=== PATIENT | male | born 1955 | race Caucasian/White ===

== ENCOUNTER 2018-07-20 00:28 | Inpatient (IN) | payer OTHER ==
[~2018-07-20] VITALS: Ht 170.2 cm; Wt 104.3 kg
[~2018-07-20 00:28] MED LIST: ACIDOPHILUS1 EAC4 PO; ADVAIR 250-501 EACH; ALBUTEROL SULF8.5 GM; AMIODARONE HCL200 MG PO; AMLODIPINE BESY10 MG PO; ASA81 MG; AUGMENTIN 875-1 EACH PO; BACID PO; BUPROPION XL150 MG PO; CARAFATE1 GM PO; CHERATUSSIN AC118 ML; DIGOXIN125 MCG PO; FINASTERIDE5 MG PO; FLAGYL500 MG PO; FLEXERIL10 MG PO; GEMFIBROZIL600 MG PO; HEMOCYTE PLUS1 EACH PO; HYDROCHLOROTHIA25 MG PO; HYDROCODON-ACE1 EAC8 PO; HYDROCODON-ACE1 EAC9 PO; LANTUS SQ; LANTUS100 UNITS/ SQ; LOSARTAN POTAS100 MG PO; LYRICA75 MG PO; METOPROLOL SUC100 MG PO; METOPROLOL SUCC25 MG PO; NIFEDIPINE ER90 M1 PO; NORCO 10-325 T1 EACH PO; NOVOLOG; NOVOLOG MI100 UNIT/1 SQ; OMEPRAZOLE40 MG PO; PRAVASTATIN SOD20 MG PO; PROTONIX40 MG/ML PO; ULTRAM50 MG PO; WELLBUTRIN SR150 MG PO; Z.0.AMLODIPINE BESY1; Z.0.METOPROLOL SUC10 PO; Z.0.SERTRALINE HCL50 PO; Z.1.DIOVAN HCT 3201; ZOLOFT50 MG PO
--- OUTSIDE RECORDS SUMMARY | 2018-07-20 00:32 | XMS REPORT | Clinical Summary ---
Author Author CLARA [facility] CenterRakuten MediaFor[facility] [place] Address Unknown Phone Unavailable Care Team Providers Care Tortilla Maker Name Role Phone Lynda Xiong MD PCP Emil Marks 30 Unavailable Allergies Comments Active Allergy Reactions Severity Noted Date Adhesive Itching High 07/25/2016 Adhesive Itching High 07/25/2016 Medications End Date Status Medication Sig Dispensed Refills Start Date Active HYDROcodone-acetaminophen Take 1 tablet 0 (NORCO 10-325) 10-325 mg by mouth 2 5 per tablet (two) times daily as needed. Active insulin aspart (NOVOLOG Inject 25 0 FLEXPEN) 100 unit/mL InPn Units 5 subcutaneousl y 3 (three) times daily before meals Dose confirmed and verified with the patient.. Active insulin glargine (LANTUS Inject 50 0 SOLOSTAR) 100 unit/mL (3 Units 5 mL) InPn subcutaneousl y nightly Dose confirmed and verified with the patient.. Active furosemide (LASIX) 80 MG Take 80 mg by 0 tablet mouth 2 (two) times daily . Active metolazone (ZAROXOLYN) Take 2.5 mg 0 2.5 MG tablet by mouth daily. Active lisinopril Take 5 mg by 0 (PRINIVIL,ZESTRIL) 5 MG mouth 2 (two) tablet times daily . Active verapamil (VERELAN PM) Take 360 mg 0 360 MG 24 hr capsule by mouth nightly. Active venlafaxine (EFFEXOR) 75 Take 75 mg by 0 MG tablet mouth daily. Active sevelamer (RENVELA) 800 Take 3,200 mg 0 mg tabletIndications: by mouth 3 Pre-transplant evaluation (three) times for chronic kidney daily with disease meals . Active metoprolol (TOPROL-XL) Take 100 mg 0 100 MG 24 hr by mouth 2 tabletIndications: (two) times Pre-transplant evaluation daily . for chronic kidney disease 12/04/2018 Active insulin lispro (HUMALOG) Inject 0-12 10 mL 0 100 unit/mL injection Units 8 subcutaneousl y as needed (High blood sugar). 12/04/2018 Active insulin lispro (HUMALOG) Inject 0-4 10 mL 0 100 unit/mL injection Units 8 subcutaneousl y every night as needed (High blood sugar). Active omeprazole 20 mg TbEC Take 30 30 each 3 tablets by 8 mouth daily. 07/26/2017 furosemide (LASIX) 80 MG Take 1 tablet 180 tablet 3 tablet (80 mg total) 6 by mouth 2 (two) times daily. 12/04/2017 Discontinued aspirin 81 MG EC tablet Take 81 mg by 0 mouth daily. Active Problems Problem Noted Date Cardiomyopathy, unspecified type 12/02/2017 Alcoholic cirrhosis of liver without ascites 12/02/2017 Essential hypertension 12/02/2017 MARY (obstructive sleep apnea) 12/02/2017 Hyperlipidemia 12/02/2017 History of GI bleed 12/02/2017 Overview: multiple. 03/2015. 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 03/10/2016 dialysis, with long-term current use of insulin Vertigo 03/09/2016 Dizziness 03/09/2016 Acute chest pain 05/08/2015 GI bleed 04/23/2015 Encounters Care Team Description Date Type Specialty Audra Moy MD Canceled (Provider) 12/23/2017 Office Visit Cardiology Scarlet Martinez MD 12/02/2017 Anesthesia Gastroenterology Event Adrienne Fuentes MD UPPER ENDOSCOPY 12/02/2017 Surgery Gastroenterology Tamar Chandler MD Vincent, MD Bri Babb Tuyen V., MD Simms, King Reynaga MD Upper GI bleed (Primary Dx); Liver disease; ESRD (end stage renal disease) (HCC); Weakness; Anemia, unspecified type 12/01/2017 [facility] General Internal Medicine - Encounter 12/04/2017 Melissa Bonilla RN Kidney Transplant Pre-evaluation 08/05/2017 Telephone Transplant after 07/19/2017 Family History Medical History Relation Name Comments Leukemia Brother Arthritis Father COPD Father Lung cancer Father Diabetes Mother Heart disease Mother Stroke Mother Relation Name Status Comments Brother Father Mother Social History Date Tobacco Use Types Packs/Day Years Used Quit: 08/11/2012 Current Every Day Smoker 0.5 50 Smokeless Tobacco: Former Quit: 04/23/1976 User Tobacco Cessation: Ready to Quit: Yes; Counseling Given: Yes Alcohol Use Drinks/Week oz/Week Comments No 0 Cans of 0.0 h/o abuse, quit beer Sex Assigned at Date Recorded Not on file Industry Job Start Date Occupation Not on file Not on file Not on file Travel End Travel History Travel Start No recent travel history available. Last Filed Vital Signs Time Taken Vital Sign Reading 12/04/2017 7:45 AM CDT Blood Pressure 143/75 12/04/2017 7:45 AM CDT Pulse 91 12/04/2017 7:45 AM CDT Temperature 37.4 C (99.4 F) 12/04/2017 7:45 AM CDT Respiratory Rate 18 12/04/2017 7:45 AM CDT Oxygen Saturation 98% - Inhaled Oxygen - Concentration 12/04/2017 6:00 AM CDT Weight 109.8 kg (242 lb 1.6 oz) 12/01/2017 10:01 PM CDT Height 180.3 cm (5' 11") 12/04/2017 6:00 AM CDT Body Mass Index 33.77 Plan of Treatment Health Maintenance Due Date Last Done Comments INFLUENZA VACCINE 05/23/2018 Procedures Comments Procedure Name Priority Date/Time Associated Diagnosis RHYTHM STRIP - SCAN 06/09/2018 6:20 AM CDT RHYTHM STRIP - SCAN 12/07/2017 9:00 AM CDT POCT-GLUCOSE METER Routine 12/04/2017 8:10 AM CDT (MANUAL DIFFERENTIAL) Routine 12/04/2017 5:52 AM CDT CBC W/PLT COUNT & AUTO Routine 12/04/2017 DIFFERENTIAL 5:52 AM CDT BASIC METABOLIC PANEL (7) Routine 12/04/2017 5:52 AM CDT CBC W/PLT COUNT & AUTO Routine 12/04/2017 DIFFERENTIAL 5:52 AM CDT POCT-GLUCOSE METER Routine 12/04/2017 1:32 AM CDT HEMODIALYSIS INPATIENT Routine 12/04/2017 12:17 AM CDT PHOSPHORUS Routine 12/03/2017 8:31 PM CDT HEMOGLOBIN AND HEMATOCRIT Routine 12/03/2017 5:55 PM CDT TRANSFUSION SERVICE 12/03/2017 REPORT - SCAN 5:44 PM CDT POCT-GLUCOSE METER Routine 12/03/2017 4:30 PM CDT FL SMALL BOWEL SERIES Routine 12/03/2017 3:40 PM CDT POCT-GLUCOSE METER Routine 12/03/2017 7:43 AM CDT POCT-GLUCOSE METER Routine 12/03/2017 6:08 AM CDT CBC W/PLT COUNT & AUTO Routine 12/03/2017 DIFFERENTIAL 5:08 AM CDT BASIC METABOLIC PANEL (7) Routine 12/03/2017 5:08 AM CDT CBC W/PLT COUNT & AUTO Routine 12/03/2017 DIFFERENTIAL 5:08 AM CDT PREPARE LEUKO-REDUCED RBC Routine 12/02/2017 11:55 PM CDT PREPARE LEUKO-REDUCED RBC Routine 12/02/2017 11:55 PM CDT HEPATITIS B PANEL MANJINDER 12/02/2017 9:06 PM CDT HEMOGLOBIN AND HEMATOCRIT Routine 12/02/2017 9:06 PM CDT POCT-GLUCOSE METER Routine 12/02/2017 5:57 PM CDT TRANSFUSION SERVICE 12/02/2017 REPORT - SCAN 5:43 PM CDT HEMOGLOBIN AND HEMATOCRIT Routine 12/02/2017 1:46 PM CDT POCT-GLUCOSE METER Routine 12/02/2017 12:15 PM CDT REPORT OF PROCEDURE - 12/02/2017 ENDOSCOPY URL 11:48 AM CDT UPPER ENDOSCOPY 12/02/2017 Upper GI bleeding 11:00 AM CDT Special Needs EGD WITH ANES POCT-GLUCOSE METER Routine 12/02/2017 5:57 AM CDT PHOSPHORUS Routine 12/02/2017 5:57 AM CDT MAGNESIUM Routine 12/02/2017 5:57 AM CDT BASIC METABOLIC PANEL (7) Routine 12/02/2017 5:57 AM CDT PROTHROMBIN TIME/INR Routine 12/02/2017 5:57 AM CDT APTT Routine 12/02/2017 5:57 AM CDT HEMOGLOBIN AND HEMATOCRIT Routine 12/02/2017 5:57 AM CDT TRANSFUSE LEUKO-REDUCED Routine 12/02/2017 RED BLOOD CELLS 3:00 AM CDT POCT-GLUCOSE METER Routine 12/02/2017 1:41 AM CDT TRANSFUSE LEUKO-REDUCED Routine 12/01/2017 RED BLOOD CELLS 10:24 PM CDT CRITICAL CARE Routine 12/01/2017 6:04 PM CDT POCT OCCULT BLOOD STAT 12/01/2017 STOOL(GUIAC) 4:45 PM CDT CBC W/PLT COUNT & AUTO STAT 12/01/2017 DIFFERENTIAL 4:41 PM CDT TYPE AND SCREEN, STAT 12/01/2017 AUTOMATED 4:41 PM CDT PT/APTT STAT 12/01/2017 4:41 PM CDT HEPATIC FUNCTION PANEL STAT 12/01/2017 4:41 PM CDT BASIC METABOLIC PANEL (7) STAT 12/01/2017 4:41 PM CDT CBC W/PLT COUNT & AUTO STAT 12/01/2017 DIFFERENTIAL 4:41 PM CDT after 07/19/2017 Results * RHYTHM STRIP - SCAN (06/09/2018 6:20 AM CDT) Only the most recent of 2 results within the time period is included. Narrative Performed At * POC-Glucose meter (12/04/2017 8:10 AM CDT) Only the most recent of 9 results within the time period is included. POC-Glucose Meter 212 (H)Comment: TESTED AT 70 - 110 mg/dL [facility] [address] [facility] [id number] Specimen Blood Performing Organization Address City/State/Zipcode Phone Number [address] [phone] [facility] [place] * Manual Differential (12/04/2017 5:52 AM CDT) % Neutros (manual) 69 % [facility] % Lymphs (manual) 14 % [facility] % Monos (manual) 9 % [facility] % Eos (manual) 7 % [facility] % Baso (manual) 0 % [facility] % Bands (manual) 1 0 - 10 % [facility] # Neutros (manual) 1.66 (L) 1.80 - 8.00 K/L [facility] # Lymphs (manual) 0.34 (L) 1.48 - 4.50 K/L [facility] # Monos (manual) 0.22 0.00 - 1.30 K/L [facility] # Eos (manual) 0.17 0.00 - 0.50 K/L [facility] # Baso (manual) 0.00 0.00 - 0.20 K/L [facility] # Bands (manual) 0.0 0.0 - 0.8 K/L [facility] Total Counted 100 [facility] Bands plus Segmented 1.68 [facility] Neutrophils [facility] WBC Morphology Normal [facility] Platelet Morphology Normal [facility] RBC Morphology Normal [facility] Specimen Blood Performing Organization Address City/State/Zipcode Phone Number [facility] [address] [place] [address] [facility] * CBC with platelet count + automated diff (12/04/2017 5:52 AM CDT) Only the most recent of 3 results within the time period is included. WBC 2.4 (L) 3.5 - 10.5 K/L [facility] RBC 2.97 (L) 4.63 - 6.08 M/L [facility] Hemoglobin 8.7 (L) 13.7 - 17.5 GM/DL [facility] Hematocrit 26.6 (L) 40.1 - 51.0 % [facility] MCV 89.6 79.0 - 92.2 fL [facility] MCH 29.3 25.7 - 32.2 pg [facility] MCHC 32.7 32.3 - 36.5 GM/DL [facility] RDW 14.8 (H) 11.6 - 14.4 % [facility] Platelets 77 (L) 150 - 450 K/CU MM [facility] MPV 11.8 9.4 - 12.4 fL [facility] nRBC 0 0 - 0 /100 WBC [facility] Immature 0 0 - 1 % [facility] Granulocytes-Relative [facility] Specimen Blood Performing Organization Address City/State/Zipcode Phone Number [facility] [address] [place] [address] [facility] * Basic Metabolic Panel (12/04/2017 5:52 AM CDT) Only the most recent of 4 results within the time period is included. Sodium 135 (L) 136 - 145 meq/L [facility] Potassium 4.4 3.5 - 5.1 meq/L [facility] Chloride 102 98 - 107 meq/L [facility] CO2 25 22 - 29 meq/L [facility] BUN 33 (H) 7 - 21 mg/dL [facility] Creatinine 3.00 (H) 0.57 - 1.25 mg/dL [facility] Glucose 184 (H) 70 - 105 mg/dL [facility] Calcium 8.0 (L) 8.4 - 10.2 mg/dL [facility] EGFR 21Comment: ESTIMATED GFR IS mL/min/1.73 sq m [facility] NOT ACCURATE CREATININE [facility] CLEARANCE IN PREDICTING GLOMERULAR FILTRATION RATE. ESTIMATED GFR IS NOT APPLICABLE FOR DIALYSIS PATIENTS. Specimen Blood Performing Organization Address City/State/Zipcode Phone Number [facility] [address] [place] [address] [facility] * HEMODIALYSIS INPATIENT (12/04/2017 12:17 AM CDT) Narrative Performed At Isha Solomon RN 12/04/2017 12:17 AM Patient is awake, alert and oriented X 4. Here to be dialyzed for 4 hours with UF goal of 3L. The following most updated labs are as follows: Lab Results Component Value Date HEPBSAG Nonreactive 12/02/2017 Lab Results Component Value Date GLUCOSE 121 (H) 12/03/2017 CALCIUM 7.7 (L) 12/03/2017 NA 136 12/03/2017 K 4.8 12/03/2017 CO2 26 12/03/2017 CL 102 12/03/2017 BUN 56 (H) 12/03/2017 CREATININE 3.91 (H) 12/03/2017 Lab Results Component Value Date WBC 2.0 (L) 12/03/2017 HGB 8.9 (L) 12/03/2017 HCT 27.5 (L) 12/03/2017 MCV 92.2 12/03/2017 PLT 62 (L) 12/03/2017 Patient dialyzed for 4 hours with Net UF=3 L using the Left arm fistula access. Vital signs stable and well within the set parameters. Report given to Felicia JONES. Patient was able to tolerate the treatment well. Isha Solomon RN * Phosphorus (12/03/2017 8:31 PM CDT) Only the most recent of 2 results within the time period is included. Phosphorus 3.7 2.3 - 4.7 mg/dL [facility] Specimen Blood - Arm, Left Performing Organization Address City/State/Zipcode Phone Number [facility] [address] [place] [address] [facility] * Hemoglobin and hematocrit (12/03/2017 5:55 PM CDT) Only the most recent of 4 results within the time period is included. Hemoglobin 8.9 (L) 13.7 - 17.5 GM/DL [facility] Hematocrit 27.5 (L) 40.1 - 51.0 % [facility] Specimen Blood - Arm, Right Performing Organization Address City/State/Zipcode Phone Number [facility] [address] [place] [address] [facility] * TRANSFUSION SERVICE REPORT - SCAN (12/03/2017 5:44 PM CDT) Only the most recent of 2 results within the time period is included. Narrative Performed At * FL small bowel series (12/03/2017 3:40 PM CDT) Narrative Performed At FINAL REPORT [facility] Small bowel follow through: Comparison: April 25, 2015 Clinical History: Melanoma After barium was given orally, multiple images were obtained over the abdomen. FINDINGS: Multiple images were obtained with contrast in the small bowel.The colon was visualized in four hours 30 minutes.The terminal ileum is unremarkable.There is no evidence of obstruction.The small bowel loops are not dilated and the small bowel folds arenot thickened. There was no evidence of mass effect. Fluoro time: 0.63 minutes Impression: Unremarkable small bowel follow through. Signed: Shlomo Zuleta MD Report Verified Date/Time:12/03/2017 15:57:25 Reading Location: [address] Ortho Consult Reading Room Procedure Note Interface, External Ris In - 12/03/2017 3:59 PM CDT FINAL REPORT Small bowel follow through: Comparison: April 25, 2015 Clinical History: Melanoma After barium was given orally, multiple images were obtained over the abdomen. FINDINGS: Multiple images were obtained with contrast in the small bowel. The colon was visualized in four hours 30 minutes. The terminal ileum is unremarkable. There is no evidence of obstruction. The small bowel loops are not dilated and the small bowel folds are not thickened. There was no evidence of mass effect. Fluoro time: 0.63 minutes Impression: Unremarkable small bowel follow through. Signed: Shlomo Zuleta MD Report Verified Date/Time: 12/03/2017 15:57:25 Reading Location: [facility] [id number] Ortho Consult Reading Room Performing Organization Address City/State/Zipcode Phone Number [facility] * Prepare Leuko-Red RBC (12/02/2017 11:55 PM CDT) Only the most recent of 2 results within the time period is included. CROSSMATCH COMPATIBLE SAFETRACE TX Unit ABO O Pos SAFETRACE TX UNIT NUMBER [id number] [place] Status TRANSFUSED [place] Blood Bank Product RED BLOOD CELLS [place] PRODUCT CODE [id number] [place] Specimen Other Performing Organization Address [facility] Phone Number [place] * Hepatitis B Panel (12/02/2017 9:06 PM CDT) Hep B Core Total Ab NON-REACTIVE Nonreactive [facility] Hep B S Ab <8.0 <8.0 mIU/mL [facility] hepatitis B Surface Ag NON-REACTIVE Nonreactive [facility] Specimen Blood Performing Organization Address [facility] Phone Number [address] [address] [phone] * REPORT OF PROCEDURE - ENDOSCOPY URL (12/02/2017 11:48 AM CDT) Narrative Performed At * aPTT (12/02/2017 5:57 AM CDT) PTT 31.1 22.5 - 36.0 seconds [facility] Specimen Blood Performing Organization Address [facility] Phone Number [address] [address] [phone] [address] * Prothrombin time/INR (12/02/2017 5:57 AM CDT) Protime 14.6 11.7 - 14.7 seconds [facility] INR 1.1 <=5.9 [facility] Specimen Blood Narrative Performed At RECOMMENDED COUMADIN/WARFARIN INR THERAPY RANGES [facility] STANDARD DOSE: 2.0 - 3.0 Includes: PROPHYLAXIS for venous thrombosis, [facility] systemic embolization; TREATMENT for venous thrombosis and/or pulmonary embolus. HIGH RISK: Target INR is 2.5-3.5 for patients with mechanical heart valves. Performing Organization Address [facility] Phone Number [address] [address] [phone] [place] [address] * Magnesium (12/02/2017 5:57 AM CDT) Magnesium 2.2 1.6 - 2.6 mg/dL [facility] Specimen Blood Performing Organization Address [facility]/Zipcode Phone Number [facility] [address] [place] [address] [facility] * Transfuse Leuko-Red RBC (12/02/2017 3:00 AM CDT) Only the most recent of 4 results within the time period is included. * CRITICAL CARE (12/01/2017 6:04 PM CDT) Narrative Performed At Tamar Chandler MD 12/01/20176:04 PM Critical Care Performed by: TAMAR CHANDLER Authorized by: TAMAR CHANDLER Total critical care time: 40 minutes Critical care was necessary to treat or prevent imminent or life-threatening deterioration of the following conditions: circulatory failure. Critical care was time spent personally by me on the following activities: evaluation of patient's response to treatment, examination of patient, obtaining history from patient or surrogate, ordering and performing treatments and interventions, ordering and review of laboratory studies, ordering and review of radiographic studies, pulse oximetry and re-evaluation of patient's condition. * POCT OCCULT BLOOD STOOL (GUIAC) [facility] ED & [facility]S ONLY (12/01/2017 4:45 PM CDT) Fecal Occult Blood Positive (A) Negative (ia), POC QC Result Acceptable?, QC Acceptable POC FOB Card Lot #, POC [id number] [id number] 07-11 FOB Developer Lot # [id number] 2019-07 Specimen Stool * Type and screen, automated ([facility]) (12/01/2017 4:41 PM CDT) ABO/RH AUTOMATED (BEAKER) O POSITIVE [facility] Ab Scrn NEGATIVE [facility] Specimen Blood - Arm, Right Performing Organization Address [facility]/Zipcode Phone Number [place] [phone] [place] [address] [phone] [place] [address] * PT/aPTT (12/01/2017 4:41 PM CDT) Protime 14.4 11.7 - 14.7 seconds [facility] INR 1.1 <=5.9 [facility] PTT 27.6 22.5 - 36.0 seconds [facility] Specimen Blood - Arm, Right Narrative Performed At RECOMMENDED COUMADIN/WARFARIN INR THERAPY RANGES [facility] STANDARD DOSE: 2.0 - 3.0 Includes: PROPHYLAXIS for venous thrombosis, [facility] systemic embolization; TREATMENT for venous thrombosis and/or pulmonary embolus. HIGH RISK: Target INR is 2.5-3.5 for patients with mechanical heart valves. Performing Organization Address City/[facility] Phone Number [facility] [address] [place] [address] [facility] * Hepatic function panel (12/01/2017 4:41 PM CDT) Protein, Total 7.0Comment: Specimen slightly 6.0 - 8.3 gm/dL [facility] Albumin 3.4 (L)Comment: Specimen 3.5 - 5.0 g/dL [facility] Total Bilirubin 0.4Comment: Specimen slightly 0.2 - 1.2 mg/dL [facility] Bilirubin, Direct 0.2Comment: Specimen slightly 0.1 - 0.5 mg/dL [facility] Alkaline Phosphatase 110 40 - 150 U/L [facility] AST 46 (H)Comment: Specimen 5 - 34 U/L [facility] slightly hemolyzed [facility] ALT 23Comment: Specimen slightly 6 - 55 U/L [facility] Specimen Blood - Arm, Right Performing Organization Address City/[facility]/Zipcode Phone Number [facility] [address] [place] [address] [facility] after 07/19/2017 Insurance Payer Benefit Subscriber ID Type Phone Address Plan / Group [employer] - MGD CARE CIGNA COH xxxxxxxxxxx HMO/POS NETWORK CIGNA LIFESOURCE CIGNA xxxxxxxxxxx Transplant TRANSPLANT LIFESOURCE s TRANSPLANT MEDICARE MEDICARE A xxxxxxxxxx Medicare B Advance Directives For more information, please contact: [facility] [address] [place] [address] Date Inactivated Comments Code Status Date Activated 12/04/2017 2:58 PM Full Code 12/01/2017 8:06 PM This code status was determined by: Patient 08/18/2016 2:01 PM Full Code 08/18/2016 6:11 AM This code status was determined by: Patient 07/26/2016 7:16 PM Full Code 07/25/2016 7:15 PM This code status was determined by: Patient 03/10/2016 7:32 PM Full Code 03/09/2016 6:09 AM This code status was determined by: Patient 05/11/2015 9:19 PM Full Code 05/09/2015 12:22 AM This code status was determined by: Patient
--- OUTSIDE RECORDS SUMMARY | 2018-07-20 00:33 | XMS REPORT ---
Author Author [facility] Address Unknown Phone Unavailable Care Team Providers Care Benefit Director Name Role Phone ROM CHANDLER Unavailable Unavailable Ish FELIZ Unavailable Unavailable JESSICA STANTON Unavailable Unavailable Problems This patient has no known problems. Allergies, Adverse Reactions, Alerts This patient has no known allergies or adverse reactions. Medications This patient has no known medications. Results Test Description Test Time Test Comments Text Results Atomic Results Result Comments CBC W/PLT COUNT & AUTO DIFFERENTIAL 2017-12-04 10:00:00 WHITE BLOOD CELL COUNT (BEAKER) (test wngc=311) 2.4 K/ L 3.5-10.5 RED BLOOD CELL COUNT (BEAKER) (test ipuq=903) 2.97 M/ L 4.63-6.08 HEMOGLOBIN (BEAKER) (test rhgo=031) 8.7 GM/DL 13.7-17.5 HEMATOCRIT (BEAKER) (test wwxa=171) 26.6 % 40.1-51.0 MEAN CORPUSCULAR VOLUME (BEAKER) (test wxth=127) 89.6 fL 79.0-92.2 MEAN CORPUSCULAR HEMOGLOBIN (BEAKER) (test gzgj=680) 29.3 pg 25.7-32.2 MEAN CORPUSCULAR HEMOGLOBIN CONC (BEAKER) (test tmla=869) 32.7 GM/DL 32.3-36.5 RED CELL DISTRIBUTION WIDTH (BEAKER) (test vcau=507) 14.8 % 11.6-14.4 PLATELET COUNT (BEAKER) (test nqju=123) 77 K/CU MM 150-450 MEAN PLATELET VOLUME (BEAKER) (test kqjt=941) 11.8 fL 9.4-12.4 NUCLEATED RED BLOOD CELLS (BEAKER) (test oijo=482) 0 /100 WBC 0-0 IMMATURE GRANULOCYTES-RELATIVE PERCENT (BEAKER) (test nktl=6374) 0 % 0-1 (MANUAL DIFFERENTIAL)2017-12-04 10:00:00* Test Item Value Reference Range Comments NEUTROPHILS - REL (DIFF) (BEAKER) (test ytaa=5187) 69 % LYMPHOCYTES - REL (DIFF) (BEAKER) (test apme=9231) 14 % MONOCYTES - REL (DIFF) (BEAKER) (test wsfr=2534) 9 % EOSINOPHILS - REL (DIFF) (BEAKER) (test lxnm=1825) 7 % BASOPHILS - REL (DIFF) (BEAKER) (test esmp=6457) 0 % BANDS - REL (DIFF) (BEAKER) (test durh=2400) 1 % 0-10 NEUTROPHILS - ABS (DIFF) (BEAKER) (test wowz=2082) 1.66 K/ L 1.80-8.00 LYMPHOCYTES - ABS (DIFF) (BEAKER) (test bgkc=6917) 0.34 K/ L 1.48-4.50 MONOCYTES - ABS (DIFF) (BEAKER) (test gjsz=2141) 0.22 K/ L 0.00-1.30 EOSINOPHILS - ABS (DIFF) (BEAKER) (test ngie=1374) 0.17 K/ L 0.00-0.50 BASOPHILS - ABS (DIFF) (BEAKER) (test galo=1944) 0.00 K/ L 0.00-0.20 BANDS-ABS (DIFF) (BEAKER) (test kxcm=5855) 0.0 K/ L 0.0-0.8 TOTAL COUNTED (BEAKER) (test ageu=3921) 100 BANDS + SEGMENTED NEUTROPHILS (BEAKER) (test twvy=7519) 1.68 WBC MORPHOLOGY (BEAKER) (test vlon=808) Normal PLT MORPHOLOGY (BEAKER) (test cvxi=951) Normal RBC MORPHOLOGY (BEAKER) (test xoyw=112) Normal POCT-GLUCOSE [id number] 08:25:00* Test Item Value Reference Range Comments POC-GLUCOSE METER (BEAKER) (test azuf=8642) 212 mg/dL 70-110 TESTED AT [address] [address] BASIC METABOLIC [id number] 07:14:00* Test Item Value Reference Range Comments SODIUM (BEAKER) (test cbyl=711) 135 meq/L 136-145 POTASSIUM (BEAKER) (test wvdf=061) 4.4 meq/L 3.5-5.1 CHLORIDE (BEAKER) (test omal=491) 102 meq/L 98-107 CO2 (BEAKER) (test yhew=097) 25 meq/L 22-29 BLOOD UREA NITROGEN (BEAKER) (test oqfa=668) 33 mg/dL 7-21 CREATININE (BEAKER) (test hhln=215) 3.00 mg/dL 0.57-1.25 GLUCOSE RANDOM (BEAKER) (test mvdt=035) 184 mg/dL 70-105 CALCIUM (BEAKER) (test tpbc=934) 8.0 mg/dL 8.4-10.2 EGFR (BEAKER) (test oect=8068) 21 mL/min/1.73 sq m ESTIMATED GFR IS NOT ACCURATE CREATININE CLEARANCE IN PREDICTING GLOMERULAR FILTRATION RATE. ESTIMATED GFR IS NOT APPLICABLE FOR DIALYSIS PATIENTS. POCT-GLUCOSE [id number] 01:36:00* Test Item Value Reference Range Comments POC-GLUCOSE METER (BEAKER) (test svxn=1255) 268 mg/dL 70-110 TESTED AT [place] [id number] [facility] [address] [id number] 21:32:00* Test Item Value Reference Range Comments PHOSPHORUS (BEAKER) (test djdw=999) 3.7 mg/dL 2.3-4.7 HEMOGLOBIN AND [id number] 18:04:00* Test Item Value Reference Range Comments HEMOGLOBIN (BEAKER) (test pmzh=847) 8.9 GM/DL 13.7-17.5 HEMATOCRIT (BEAKER) (test qdea=798) 27.5 % 40.1-51.0 POCT-GLUCOSE [id number] 16:33:00* Test Item Value Reference Range Comments POC-GLUCOSE METER (BEAKER) (test icav=6421) 141 mg/dL 70-110 TESTED AT [facility] [address] [facility] [address] [place], SMALL BOWEL [id number] 15:57:00Reason for exam:->MelenaFINAL REPORT Small bowel follow through: Comparison: April 25, 2015Clinical History: Melanoma After barium was given orally, [...] of mass effect. Fluoro time: 0.63 minutes Impress ion:Unremarkable small bowel follow through. Signed: Shlomo Zuletaort Verified Date/Time: 12/03/2017 15:57:25 Reading Location: [facility] B1 [id number] Ortho Consult [facility] Room P M POCT-GLUCOSE [id number] 08:18:00* Test Item Value Reference Range Comments POC-GLUCOSE METER (BEAKER) (test nfze=1854) 144 mg/dL 70-110 TESTED AT [facility] [address] [facility] [address] CBC W/PLT COUNT & AUTO [id number] 06:59:00* Test Item Value Reference Range Comments WHITE BLOOD CELL COUNT (BEAKER) (test tqbi=319) 2.0 K/ L 3.5-10.5 RED BLOOD CELL COUNT (BEAKER) (test qiwe=793) 2.83 M/ L 4.63-6.08 HEMOGLOBIN (BEAKER) (test ctwr=618) 8.4 GM/DL 13.7-17.5 HEMATOCRIT (BEAKER) (test yeyg=800) 26.1 % 40.1-51.0 MEAN CORPUSCULAR VOLUME (BEAKER) (test hxdz=474) 92.2 fL 79.0-92.2 MEAN CORPUSCULAR HEMOGLOBIN (BEAKER) (test aylv=501) 29.7 pg 25.7-32.2 MEAN CORPUSCULAR HEMOGLOBIN CONC (BEAKER) (test roqs=938) 32.2 GM/DL 32.3-36.5 RED CELL DISTRIBUTION WIDTH (BEAKER) (test erfp=993) 15.1 % 11.6-14.4 PLATELET COUNT (BEAKER) (test wfyb=291) 62 K/CU MM 150-450 MEAN PLATELET VOLUME (BEAKER) (test hgst=654) 11.1 fL 9.4-12.4 NUCLEATED RED BLOOD CELLS (BEAKER) (test ehai=370) 0 /100 WBC 0-0 NEUTROPHILS RELATIVE PERCENT (BEAKER) (test mpga=783) 50 % LYMPHOCYTES RELATIVE PERCENT (BEAKER) (test gdfw=505) 25 % MONOCYTES RELATIVE PERCENT (BEAKER) (test hfoq=396) 15 % EOSINOPHILS RELATIVE PERCENT (BEAKER) (test uwje=710) 9 % BASOPHILS RELATIVE PERCENT (BEAKER) (test cinz=321) 1 % NEUTROPHILS ABSOLUTE COUNT (BEAKER) (test jnot=807) 1.00 K/ L 1.78-5.38 LYMPHOCYTES ABSOLUTE COUNT (BEAKER) (test uyug=825) 0.50 K/ L 1.32-3.57 MONOCYTES ABSOLUTE COUNT (BEAKER) (test pees=632) 0.30 K/ L 0.30-0.82 EOSINOPHILS ABSOLUTE COUNT (BEAKER) (test zjxp=076) 0.17 K/ L 0.04-0.54 BASOPHILS ABSOLUTE COUNT (BEAKER) (test taqc=998) 0.01 K/ L 0.01-0.08 IMMATURE GRANULOCYTES-RELATIVE PERCENT (BEAKER) (test dhat=4597) 1 % 0-1 BASIC METABOLIC [id number] 06:32:00* Test Item Value Reference Range Comments SODIUM (BEAKER) (test cdxg=822) 136 meq/L 136-145 POTASSIUM (BEAKER) (test herw=214) 4.8 meq/L 3.5-5.1 CHLORIDE (BEAKER) (test qipm=329) 102 meq/L 98-107 CO2 (BEAKER) (test mwgk=197) 26 meq/L 22-29 BLOOD UREA NITROGEN (BEAKER) (test sdst=338) 56 mg/dL 7-21 CREATININE (BEAKER) (test aosv=670) 3.91 mg/dL 0.57-1.25 GLUCOSE RANDOM (BEAKER) (test eode=293) 121 mg/dL 70-105 CALCIUM (BEAKER) (test mchx=657) 7.7 mg/dL 8.4-10.2 EGFR (BEAKER) (test ztno=6653) 16 mL/min/1.73 sq m ESTIMATED GFR IS NOT ACCURATE CREATININE CLEARANCE IN PREDICTING GLOMERULAR FILTRATION RATE. ESTIMATED GFR IS NOT APPLICABLE FOR DIALYSIS PATIENTS. POCT-GLUCOSE [id number] 06:11:00* Test Item Value Reference Range Comments POC-GLUCOSE METER (BEAKER) (test ybym=3770) 148 mg/dL 70-110 TESTED AT [facility] [address] [facility] [address] HEPATITIS B [id number] 22:02:00* Test Item Value Reference Range Comments HEPATITIS B CORE TOTAL ANTIBODY (BEAKER) (test emki=833) Nonreactive Nonreactive HEPATITIS B SURFACE ANTIBODY (BEAKER) (test hxzf=330) < mIU/mL <8.0 HEPATITIS B SURFACE ANTIGEN (2) (BEAKER) (test guqs=5290) Nonreactive Nonreactive HEMOGLOBIN AND [id number] 21:14:00* Test Item Value Reference Range Comments HEMOGLOBIN (BEAKER) (test ayly=201) 8.0 GM/DL 13.7-17.5 HEMATOCRIT (BEAKER) (test liap=255) 24.4 % 40.1-51.0 POCT-GLUCOSE [id number] 18:18:00* Test Item Value Reference Range Comments POC-GLUCOSE METER (BEAKER) (test bgbh=0166) 267 mg/dL 70-110 TESTED AT [address] [address] HEMOGLOBIN AND [id number] 14:34:00* Test Item Value Reference Range Comments HEMOGLOBIN (BEAKER) (test qsum=189) 8.8 GM/DL 13.7-17.5 HEMATOCRIT (BEAKER) (test mxib=567) 27.3 % 40.1-51.0 POCT-GLUCOSE [id number] 12:17:00* Test Item Value Reference Range Comments POC-GLUCOSE METER (BEAKER) (test efui=9347) 177 mg/dL 70-110 TESTED AT [address] [address] BASIC METABOLIC [id number] 07:07:00* Test Item Value Reference Range Comments SODIUM (BEAKER) (test ikqt=932) 137 meq/L 136-145 POTASSIUM (BEAKER) (test ywjy=529) 4.5 meq/L 3.5-5.1 CHLORIDE (BEAKER) (test zfoz=695) 99 meq/L 98-107 CO2 (BEAKER) (test rcge=111) 30 meq/L 22-29 BLOOD UREA NITROGEN (BEAKER) (test klos=862) 38 mg/dL 7-21 CREATININE (BEAKER) (test riti=516) 3.07 mg/dL 0.57-1.25 GLUCOSE RANDOM (BEAKER) (test lpnu=427) 109 mg/dL 70-105 CALCIUM (BEAKER) (test fejg=273) 8.0 mg/dL 8.4-10.2 EGFR (BEAKER) (test iyao=9200) 21 mL/min/1.73 sq m ESTIMATED GFR IS NOT ACCURATE CREATININE CLEARANCE IN PREDICTING GLOMERULAR FILTRATION RATE. ESTIMATED GFR IS NOT APPLICABLE FOR DIALYSIS PATIENTS. [id number] 07:02:00* Test Item Value Reference Range Comments PHOSPHORUS (BEAKER) (test kquu=998) 4.4 mg/dL 2.3-4.7 [id number] 07:02:00* Test Item Value Reference Range Comments MAGNESIUM (BEAKER) (test pptn=551) 2.2 mg/dL 1.6-2.6 [id number] 06:56:00* Test Item Value Reference Range Comments PARTIAL THROMBOPLASTIN TIME (BEAKER) (test ehlc=593) 31.1 seconds 22.5-36.0 PROTHROMBIN TIME/[id number] 06:55:00* Test Item Value Reference Range Comments PROTIME (BEAKER) (test xuto=403) 14.6 seconds 11.7-14.7 INR (BEAKER) (test pwfw=448) 1.1 <=5.9 RECOMMENDED COUMADIN/WARFARIN INR THERAPY RANGESSTANDARD DOSE: 2.0 - 3.0 Inclu khai: PROPHYLAXIS for venous thrombosis, systemic embolization; TREATMENT for nael ous thrombosis and/or pulmonary embolus.HIGH RISK: Target INR is 2.5-3.5 for pat ients with mechanical heart valves.HEMOGLOBIN AND [id number] 06:18:00 * Test Item Value Reference Range Comments HEMOGLOBIN (BEAKER) (test qwtp=666) 8.9 GM/DL 13.7-17.5 HEMATOCRIT (BEAKER) (test houo=485) 27.8 % 40.1-51.0 POCT-GLUCOSE [id number] 05:59:00* Test Item Value Reference Range Comments POC-GLUCOSE METER (BEAKER) (test qshh=0310) 121 mg/dL 70-110 TESTED AT [address] [address] POCT-GLUCOSE [id number] 01:43:00* Test Item Value Reference Range Comments POC-GLUCOSE METER (BEAKER) (test xske=8355) 126 mg/dL 70-110 TESTED AT [address] [address] BASIC METABOLIC [id number] 17:30:00* Test Item Value Reference Range Comments SODIUM (BEAKER) (test vzxd=703) 135 meq/L 136-145 POTASSIUM (BEAKER) (test ooxi=970) 4.0 meq/L 3.5-5.1 Specimen slightly hemolyzed CHLORIDE (BEAKER) (test buwq=083) 96 meq/L 98-107 CO2 (BEAKER) (test xpek=704) 34 meq/L 22-29 BLOOD UREA NITROGEN (BEAKER) (test dtxc=058) 29 mg/dL 7-21 CREATININE (BEAKER) (test hujo=803) 2.42 mg/dL 0.57-1.25 Specimen slightly hemolyzed GLUCOSE RANDOM (BEAKER) (test xgsk=762) 219 mg/dL 70-105 CALCIUM (BEAKER) (test ikfg=078) 8.3 mg/dL 8.4-10.2 EGFR (BEAKER) (test htfo=3671) 27 mL/min/1.73 sq m ESTIMATED GFR IS NOT ACCURATE CREATININE CLEARANCE IN PREDICTING GLOMERULAR FILTRATION RATE. ESTIMATED GFR IS NOT APPLICABLE FOR DIALYSIS PATIENTS. HEPATIC FUNCTION [id number] 17:27:00* Test Item Value Reference Range Comments TOTAL PROTEIN (BEAKER) (test gufp=423) 7.0 gm/dL 6.0-8.3 Specimen slightly hemolyzed ALBUMIN (BEAKER) (test xdta=4529) 3.4 g/dL 3.5-5.0 Specimen slightly hemolyzed BILIRUBIN TOTAL (BEAKER) (test bapi=373) 0.4 mg/dL 0.2-1.2 Specimen slightly hemolyzed BILIRUBIN DIRECT (BEAKER) (test hluf=022) 0.2 mg/dL 0.1-0.5 Specimen slightly hemolyzed ALKALINE PHOSPHATASE (BEAKER) (test eean=309) 110 U/L 40-150 AST (SGOT) (BEAKER) (test penv=921) 46 U/L 5-34 Specimen slightly hemolyzed ALT (SGPT) (BEAKER) (test htfn=810) 23 U/L 6-55 Specimen slightly hemolyzed [id number] 17:20:00* Test Item Value Reference Range Comments PROTIME (BEAKER) (test xcga=488) 14.4 seconds 11.7-14.7 INR (BEAKER) (test woht=918) 1.1 <=5.9 PARTIAL THROMBOPLASTIN TIME (BEAKER) (test wled=745) 27.6 seconds 22.5-36.0 RECOMMENDED COUMADIN/WARFARIN INR THERAPY RANGESSTANDARD DOSE: 2.0 - 3.0 Inclu khai: PROPHYLAXIS for venous thrombosis, systemic embolization; TREATMENT for nael ous thrombosis and/or pulmonary embolus.HIGH RISK: Target INR is 2.5-3.5 for pat ients with mechanical heart valves.CBC W/PLT COUNT & AUTO [id number] 17:14:00* Test Item Value Reference Range Comments WHITE BLOOD CELL COUNT (BEAKER) (test rfkj=211) 4.7 K/ L 3.5-10.5 RED BLOOD CELL COUNT (BEAKER) (test zobe=796) 2.35 M/ L 4.63-6.08 HEMOGLOBIN (BEAKER) (test bjvn=540) 7.2 GM/DL 13.7-17.5 HEMATOCRIT (BEAKER) (test qyjw=338) 22.4 % 40.1-51.0 MEAN CORPUSCULAR VOLUME (BEAKER) (test edoy=904) 95.3 fL 79.0-92.2 MEAN CORPUSCULAR HEMOGLOBIN (BEAKER) (test puir=070) 30.6 pg 25.7-32.2 MEAN CORPUSCULAR HEMOGLOBIN CONC (BEAKER) (test bgpp=500) 32.1 GM/DL 32.3-36.5 RED CELL DISTRIBUTION WIDTH (BEAKER) (test dfsx=755) 15.3 % 11.6-14.4 PLATELET COUNT (BEAKER) (test xwgr=366) 97 K/CU MM 150-450 MEAN PLATELET VOLUME (BEAKER) (test ngyl=056) 11.7 fL 9.4-12.4 NUCLEATED RED BLOOD CELLS (BEAKER) (test xqjy=604) 0 /100 WBC 0-0 NEUTROPHILS RELATIVE PERCENT (BEAKER) (test jpby=108) 59 % LYMPHOCYTES RELATIVE PERCENT (BEAKER) (test jiva=424) 23 % MONOCYTES RELATIVE PERCENT (BEAKER) (test pjrt=909) 13 % EOSINOPHILS RELATIVE PERCENT (BEAKER) (test hqyk=379) 5 % BASOPHILS RELATIVE PERCENT (BEAKER) (test ymeq=879) 0 % NEUTROPHILS ABSOLUTE COUNT (BEAKER) (test pzgj=365) 2.76 K/ L 1.78-5.38 LYMPHOCYTES ABSOLUTE COUNT (BEAKER) (test nrnr=258) 1.10 K/ L 1.32-3.57 MONOCYTES ABSOLUTE COUNT (BEAKER) (test dsxi=869) 0.59 K/ L 0.30-0.82 EOSINOPHILS ABSOLUTE COUNT (BEAKER) (test xnhk=343) 0.24 K/ L 0.04-0.54 BASOPHILS ABSOLUTE COUNT (BEAKER) (test eirz=245) 0.01 K/ L 0.01-0.08 IMMATURE GRANULOCYTES-RELATIVE PERCENT (BEAKER) (test snpd=5195) 0 % 0-1 AB SPECIFICITY CLASS [id number] 12:38:00* Test Item Value Reference Range Comments DATE OF SERUM (BEAKER) (test ddrk=6114) [id number] SERUM # (BEAKER) (test zzeh=0507) [id number] AB SPECIFICITY CLASS I (BEAKER) (test kthk=9350) See Scanned Report HLA [id number] 14:44:00* Test Item Value Reference Range Comments HLA RESULT (BEAKER) (test qtpg=9524) See Scanned Report HLA-A AG1 (BEAKER) (test jwii=2228) HLA-A AG2 (BEAKER) (test veay=7942) HLA-B AG1 (BEAKER) (test hjre=4147) HLA-B AG2 (BEAKER) (test cloa=0184) HLA-C AG1 (BEAKER) (test hsns=7949) HLA-C AG2 (BEAKER) (test ynmt=3650) HLA-DR AG1 (BEAKER) (test cmao=4930) HLA-DR AG2 (BEAKER) (test fidl=7722) HLA-DQ AG1 (BEAKER) (test hyiy=9226) HLA-DQ AG2 (BEAKER) (test zyvx=9513) HLA-DRW (BEAKER) (test dtow=5375) FLOW PRA CLASS I AND [id number] 11:52:00* Test Item Value Reference Range Comments DATE OF SERUM (BEAKER) (test kwjo=7290) [id number] SERUM # (BEAKER) (test tega=0402) [id number] FLOW PRA CLASS I AND II (test xlgf=3828) See Scanned Report URINE [id number] 12:51:00* Test Item Value Reference Range Comments CULTURE (BEAKER) (test epfc=5466) <10,000 col/mL skin janeen CYTOMEGALOVIRUS ANTIBODY, [id number] 14:26:00* Test Item Value Reference Range Comments CYTOMEGALOVIRUS IGG ANTIBODY (BEAKER) (test hpvl=974) Negative CYTOMEGALOVIRUS ANTIBODY, [id number] 14:26:00* Test Item Value Reference Range Comments CYTOMEGALOVIRUS IGM ANTIBODY (BEAKER) (test kbmj=946) Negative EBV-VCA ANTIBODY, [id number] 14:26:00* Test Item Value Reference Range Comments AQUILES-GONZALEZ VCA IGG (BEAKER) (test ucea=252) Positive EBV-VCA ANTIBODY, [id number] 14:26:00* Test Item Value Reference Range Comments AQUILES-GONZALEZ VCA IGM (BEAKER) (test ykkw=837) Negative VARICELLA ZOSTER ANTIBODY, [id number] 14:00:00* Test Item Value Reference Range Comments VARICELLA ZOSTER IGG (AL) (BEAKER) (test jkmc=3748) > Al VARICELLA ZOSTER RESULT INTERPRETATIONS: <=0.8 Al Nonreactive: Presumed non-immune to VZV 0.9-1.0 Al Equivocal >=1.1 Al Reactive: Presumed immune to [id number] 01:25:00* Test Item Value Reference Range Comments RPR SCREEN (BEAKER) (test gizw=933) Nonreactive Nonreactive URINALYSIS W/ [id number] 14:45:00* Test Item Value Reference Range Comments COLOR (BEAKER) (test nlts=017) Yellow CLARITY (BEAKER) (test szex=749) Clear SPECIFIC GRAVITY UA (BEAKER) (test sldk=093) 1.016 1.001-1.035 PH UA (BEAKER) (test dkph=127) 5.0 5.0-8.0 PROTEIN UA (BEAKER) (test pwdw=756) 70 mg/dL Negative GLUCOSE UA (BEAKER) (test frex=491) Negative Negative KETONES UA (BEAKER) (test armj=065) Negative Negative BILIRUBIN UA (BEAKER) (test weec=339) Positive Negative BLOOD UA (BEAKER) (test bzor=411) Negative Negative NITRITE UA (BEAKER) (test qimc=255) Negative Negative LEUKOCYTE ESTERASE UA (BEAKER) (test fzia=003) Negative Negative UROBILINOGEN UA (BEAKER) (test barw=091) 2.0 mg/dL 0.2-1.0 RBC UA (BEAKER) (test fhhm=312) < /HPF WBC UA (BEAKER) (test wpzb=316) 1 /HPF MUCUS (BEAKER) (test belf=8387) Rare SQUAMOUS EPITHELIAL (BEAKER) (test hfjs=301) 1 /HPF HYALINE CASTS (BEAKER) (test ahqp=417) 23 /LPF CASTS (BEAKER) (test dupn=0495) 5 /LPF CRYSTALS, URINE (BEAKER) (test rxji=9686) Rare SOURCE(BEAKER) (test zumu=9958) HEMOGLOBIN [id number] 14:36:00* Test Item Value Reference Range Comments HEMOGLOBIN A1C (BEAKER) (test tiku=245) 6.1 % 4.3-6.1 HEPATITIS B SURFACE [id number] 13:54:00* Test Item Value Reference Range Comments HEPATITIS B SURFACE ANTIBODY (BEAKER) (test hbbu=580) < mIU/mL <8.0 HEPATITIS B SURFACE [id number] 13:53:00* Test Item Value Reference Range Comments HEPATITIS B SURFACE ANTIGEN (2) (BEAKER) (test ydyj=7741) Nonreactive Nonreactive HEPATITIS B CORE ANTIBODY, [id number] 13:53:00* Test Item Value Reference Range Comments HEPATITIS B CORE IGM ANTIBODY (BEAKER) (test dcaq=691) Nonreactive Nonreactive HIV-1 ANTIGEN WITH HIV-1/2 [id number] 13:53:00* Test Item Value Reference Range Comments HIV-1 ANTIGEN WITH HIV 1\\T\\2 ANTIBODY (2) (BEAKER) (test ovid=0614) Nonreactive Nonreactive HEPATITIS C [id number] 13:53:00* Test Item Value Reference Range Comments HEPATITIS C ANTIBODY (BEAKER) (test vwfi=833) Reactive Nonreactive [id number] 13:50:00* Test Item Value Reference Range Comments PROSTATE SPECIFIC ANTIGEN (BEAKER) (test dsbd=117) 0.2 ng/mL 0.0-4.0 COMPREHENSIVE METABOLIC [id number] 13:42:00* Test Item Value Reference Range Comments TOTAL PROTEIN (BEAKER) (test fogt=259) 8.2 gm/dL 6.0-8.3 ALBUMIN (BEAKER) (test hxxf=0198) 3.7 g/dL 3.5-5.0 ALKALINE PHOSPHATASE (BEAKER) (test qquh=325) 152 U/L 40-150 BILIRUBIN TOTAL (BEAKER) (test mrxc=795) 0.8 mg/dL 0.2-1.2 SODIUM (BEAKER) (test dtez=880) 139 meq/L 136-145 POTASSIUM (BEAKER) (test dhmf=178) 3.8 meq/L 3.5-5.1 CHLORIDE (BEAKER) (test bgkl=256) 93 meq/L 98-107 CO2 (BEAKER) (test sedx=117) 31 meq/L 22-29 BLOOD UREA NITROGEN (BEAKER) (test mphn=584) 50 mg/dL 7-21 CREATININE (BEAKER) (test hllj=356) 5.10 mg/dL 0.57-1.25 GLUCOSE RANDOM (BEAKER) (test mdbx=939) 132 mg/dL 70-105 CALCIUM (BEAKER) (test njbl=254) 8.8 mg/dL 8.4-10.2 AST (SGOT) (BEAKER) (test jsse=304) 45 U/L 5-34 ALT (SGPT) (BEAKER) (test tske=343) 27 U/L 6-55 EGFR (BEAKER) (test agjz=8953) 12 mL/min/1.73 sq m ESTIMATED GFR IS NOT ACCURATE CREATININE CLEARANCE IN PREDICTING GLOMERULAR FILTRATION RATE. ESTIMATED GFR IS NOT APPLICABLE FOR DIALYSIS PATIENTS. PTH, [id number] 13:38:00* Test Item Value Reference Range Comments PARATHYROID HORMONE INTACT (BEAKER) (test tqux=224) 384.8 pg/mL 8.5-72.5 URIC [id number] 13:36:00* Test Item Value Reference Range Comments URIC ACID (BEAKER) (test zzue=973) 7.3 mg/dL 2.6-7.2 [id number] 13:36:00* Test Item Value Reference Range Comments PHOSPHORUS (BEAKER) (test kdjm=913) 5.3 mg/dL 2.3-4.7 GAMMA GLUTAMYL TRANSFERASE (GGT)2017-06-29 13:36:00* Test Item Value Reference Range Comments GAMMA GLUTAMYL TRANSFERASE (BEAKER) (test vywe=716) 280 U/L 9-64 LACTATE DEHYDROGENASE (LDH)2017-06-29 13:36:00* Test Item Value Reference Range Comments LACTATE DEHYDROGENASE (BEAKER) (test dgny=029) 245 U/L 125-220 CBC W/PLT COUNT & AUTO [id number] 13:16:00* Test Item Value Reference Range Comments WHITE BLOOD CELL COUNT (BEAKER) (test keku=068) 6.9 K/ L 3.5-10.5 RED BLOOD CELL COUNT (BEAKER) (test dyhc=460) 3.73 M/ L 4.63-6.08 HEMOGLOBIN (BEAKER) (test pevt=944) 11.9 GM/DL 13.7-17.5 HEMATOCRIT (BEAKER) (test qhqm=485) 35.0 % 40.1-51.0 MEAN CORPUSCULAR VOLUME (BEAKER) (test daqs=611) 93.8 fL 79.0-92.2 MEAN CORPUSCULAR HEMOGLOBIN (BEAKER) (test side=367) 31.9 pg 25.7-32.2 MEAN CORPUSCULAR HEMOGLOBIN CONC (BEAKER) (test xrsc=314) 34.0 GM/DL 32.3-36.5 RED CELL DISTRIBUTION WIDTH (BEAKER) (test lxmv=931) 13.6 % 11.6-14.4 PLATELET COUNT (BEAKER) (test txdg=536) 163 K/CU MM 150-450 MEAN PLATELET VOLUME (BEAKER) (test niiy=748) 11.4 fL 9.4-12.4 NUCLEATED RED BLOOD CELLS (BEAKER) (test wexl=179) 0 /100 WBC 0-0 NEUTROPHILS RELATIVE PERCENT (BEAKER) (test njsk=658) 49 % LYMPHOCYTES RELATIVE PERCENT (BEAKER) (test suqp=619) 20 % MONOCYTES RELATIVE PERCENT (BEAKER) (test lmrn=359) 13 % EOSINOPHILS RELATIVE PERCENT (BEAKER) (test mcby=895) 17 % BASOPHILS RELATIVE PERCENT (BEAKER) (test ntej=353) 1 % NEUTROPHILS ABSOLUTE COUNT (BEAKER) (test hoel=057) 3.38 K/ L 1.78-5.38 LYMPHOCYTES ABSOLUTE COUNT (BEAKER) (test qjwg=095) 1.40 K/ L 1.32-3.57 MONOCYTES ABSOLUTE COUNT (BEAKER) (test cclw=953) 0.90 K/ L 0.30-0.82 EOSINOPHILS ABSOLUTE COUNT (BEAKER) (test oeyf=257) 1.15 K/ L 0.04-0.54 BASOPHILS ABSOLUTE COUNT (BEAKER) (test wzls=123) 0.04 K/ L 0.01-0.08 IMMATURE GRANULOCYTES-RELATIVE PERCENT (BEAKER) (test dctq=6785) 1 % 0-1 [id number] 13:09:00* Test Item Value Reference Range Comments PROTIME (BEAKER) (test yais=429) 14.9 seconds 11.7-14.7 INR (BEAKER) (test ebem=012) 1.2 <=5.9 PARTIAL THROMBOPLASTIN TIME (BEAKER) (test khpk=406) 37.4 seconds 22.5-36.0 RECOMMENDED COUMADIN/WARFARIN INR THERAPY RANGESSTANDARD DOSE: 2.0 - 3.0 Inclu khai: PROPHYLAXIS for venous thrombosis, systemic embolization; TREATMENT for nael ous thrombosis and/or pulmonary embolus.HIGH RISK: Target INR is 2.5-3.5 for pat ients with mechanical heart valves.TISSUE [id number] 09:49:00Surgical Pathology Report Case: [id number] Authorizing Provider: Adrienne Fuentes MD Collected: 03/09/2017 0958 Ordering Location: [address] Received: 03/09/2017 1414 Service Pathologist: Keith Irvin MD Specimens: A) - Polyp, Colon - Cecum B) - Polyp, Colon - Cecum C) - Polyp, Colon - Transverse D) - Polyp, Colon - Sigmoid E) - Polyp, Colon - Sigmoid, x2 F) - Large Intestine, Colon - Rectosigmoid, rectosigmoid nodule G) - Biopsy, Gastric PART A CECAL POLYP, BIOPSY:COLONIC MUCOSA WITHOUT SIGNIFICANT HISTOPATHOLOGIC ALTERATION.NO GRANULOMAS, DYSPLASIA, OR INVASIVE CARCINOMA SEEN.PART B CECAL POLYP, BIOPSY:TUBULAR ADENOMA.PART C TRANSVERSE COLON POLYP, BIOPSY:TUBULAR ADENOMA.PART D SIGMOID POLYP, BIO PSY:TUBULAR ADENOMA.PART E SIGMOID POLYP, BIOPSY:TUBULAR ADENOMA.PART F RECTOSIG MOID NODULE, BIOPSY:HYPERPLASTIC POLYP.PART G GASTRIC BIOPSY:MILD CHRONIC INACTI VE GASTRITIS WITH FOCAL INTESTINAL METAPLASIA.NEGATIVE FOR DYSPLASIA OR INVASIVE CARCINOMA.WARTHIN STARRY STAIN FOR HELICOBACTER IS NEGATIVE.Electronically sign ed by Keith Irvin MD on 03/10/2017 at 9:49 [id number], [id number] bl eeding, epigastric pain A. Cecum colon polypB. Cecum colon polyp C. Transverse c olon polypD. Sigmoid colon polyp E. Sigmoid colon polyp x2F. Rectosigmoid nodule G. Gastric biopsySpecimen is received in seven containers of formalin all labele d with the patient's information.Specimen A: Labeled "cecum colon polyp" consist s of a 0.3 cm fragment of enrique soft tissue submitted in A1.Specimen B: Labeled "c ecum colon polyp" consists of three round fragments of enrique tissue ranging from 0 .1 to 0.3 cm, submitted in B1.Specimen C: Labeled "transverse colon polyp" consi sts of a 0.3 cm fragment of enrique tissue submitted in C1.Specimen D: Labeled "sigm oid colon polyp" consists of a enrique-pink polyp measuring 0.6 cm. The resection ma rgin is inked blue. The specimen is bisected and submitted entirely in D1.Specim en E: Labeled "sigmoid colon polyp x2" consists of four fragments of enrique tissue ranging from 0.1 to 0.3 cm, submitted in E1.Specimen F: Labeled "rectosigmoid no dule" consists of a 0.2 cm round fragment of enrique tissue submitted in F1.Specimen G: Labeled "gastric biopsy: consists of a 0.8 cm fragment of enrique soft tissue gonzalez bmitted entirely in G1. CG/ewThe following special studies were performed on th is case and the interpretation is incorporated in the diagnostic report above:BL OCK F1- BECKY STARRYPOCT-GLUCOSE [id number] 11:41:00* Test Item Value Reference Range Comments POC-GLUCOSE METER (BEAKER) (test boce=3127) 141 mg/dL 70-110 TESTED AT [facility] [address] [facility] [address] POCT-GLUCOSE [id number] 08:18:00* Test Item Value Reference Range Comments POC-GLUCOSE METER (BEAKER) (test smtf=1597) 151 mg/dL 70-110 TESTED AT [facility] [address] [facility] [address] HEPATITIS B [id number] 06:56:00* Test Item Value Reference Range Comments HEPATITIS B CORE TOTAL ANTIBODY (BEAKER) (test yfwl=039) Nonreactive Nonreactive HEPATITIS B SURFACE ANTIBODY (BEAKER) (test zrhn=300) < mIU/mL <8.0 HEPATITIS B SURFACE ANTIGEN (2) (BEAKER) (test aevm=4993) Nonreactive Nonreactive CBC W/PLT COUNT & AUTO [id number] 06:56:00* Test Item Value Reference Range Comments WHITE BLOOD CELL COUNT (BEAKER) (test dykr=101) 5.4 K/ L 4.0-10.0 RED BLOOD CELL COUNT (BEAKER) (test nrqi=511) 3.88 M/ L 4.20-5.80 HEMOGLOBIN (BEAKER) (test npns=385) 12.5 GM/DL 13.0-16.8 HEMATOCRIT (BEAKER) (test icwb=899) 36.7 % 40.0-50.0 MEAN CORPUSCULAR VOLUME (BEAKER) (test pwvi=047) 94.5 fL 82.0-98.0 MEAN CORPUSCULAR HEMOGLOBIN (BEAKER) (test jxcy=258) 32.3 pg 27.0-33.0 MEAN CORPUSCULAR HEMOGLOBIN CONC (BEAKER) (test bsve=616) 34.1 GM/DL 32.0-36.0 RED CELL DISTRIBUTION WIDTH (BEAKER) (test fwzc=359) 12.8 % 10.3-14.2 PLATELET COUNT (BEAKER) (test prvx=343) 147 K/CU MM 150-430 MEAN PLATELET VOLUME (BEAKER) (test rmje=056) 8.2 fL 6.5-10.5 NUCLEATED RED BLOOD CELLS (BEAKER) (test ecnf=138) 0 /100 WBC 0-0 NEUTROPHILS RELATIVE PERCENT (BEAKER) (test wxhn=906) 57 % LYMPHOCYTES RELATIVE PERCENT (BEAKER) (test poft=286) 21 % MONOCYTES RELATIVE PERCENT (BEAKER) (test sloo=784) 16 % EOSINOPHILS RELATIVE PERCENT (BEAKER) (test xpsb=126) 6 % BASOPHILS RELATIVE PERCENT (BEAKER) (test pdkq=025) 0 % NEUTROPHILS ABSOLUTE COUNT (BEAKER) (test mber=027) 3.06 K/ L 1.80-8.00 LYMPHOCYTES ABSOLUTE COUNT (BEAKER) (test cykv=473) 1.11 K/ L 1.48-4.50 MONOCYTES ABSOLUTE COUNT (BEAKER) (test haeq=401) 0.85 K/ L 0.00-1.30 EOSINOPHILS ABSOLUTE COUNT (BEAKER) (test bgoz=959) 0.35 K/ L 0.00-0.50 BASOPHILS ABSOLUTE COUNT (BEAKER) (test gyca=346) 0.01 K/ L 0.00-0.20 0.00BASIC METABOLIC [id number] 06:35:00* Test Item Value Reference Range Comments SODIUM (BEAKER) (test qmyw=583) 135 meq/L 136-145 POTASSIUM (BEAKER) (test hnjl=343) 4.4 meq/L 3.5-5.1 CHLORIDE (BEAKER) (test mpmx=289) 99 meq/L 98-107 CO2 (BEAKER) (test gztw=191) 23 meq/L 22-29 BLOOD UREA NITROGEN (BEAKER) (test kvbk=593) 35 mg/dL 7-21 CREATININE (BEAKER) (test cbyj=339) 3.13 mg/dL 0.57-1.25 GLUCOSE RANDOM (BEAKER) (test yhla=255) 120 mg/dL 70-105 CALCIUM (BEAKER) (test ywow=747) 8.5 mg/dL 8.4-10.2 EGFR (BEAKER) (test hosh=7524) 20 mL/min/1.73 sq m ESTIMATED GFR IS NOT ACCURATE CREATININE CLEARANCE IN PREDICTING GLOMERULAR FILTRATION RATE. ESTIMATED GFR IS NOT APPLICABLE FOR DIALYSIS PATIENTS. [id number] 06:34:00* Test Item Value Reference Range Comments PHOSPHORUS (BEAKER) (test kfql=495) 4.1 mg/dL 2.3-4.7 [id number] 06:34:00* Test Item Value Reference Range Comments MAGNESIUM (BEAKER) (test ddhl=879) 2.2 mg/dL 1.6-2.6 POCT-GLUCOSE [id number] 20:27:00* Test Item Value Reference Range Comments POC-GLUCOSE METER (BEAKER) (test eknv=9002) 203 mg/dL 70-110 TESTED AT [facility] [address] [facility] [address] POCT-GLUCOSE [id number] 17:02:00* Test Item Value Reference Range Comments POC-GLUCOSE METER (BEAKER) (test drne=2488) 88 mg/dL 70-110 TESTED AT [place] [id number] [facility] [address] POCT-GLUCOSE [id number] 14:24:00* Test Item Value Reference Range Comments POC-GLUCOSE METER (BEAKER) (test loks=2020) 177 mg/dL 70-110 TESTED AT [address] [address] BASIC METABOLIC [id number] 04:56:00* Test Item Value Reference Range Comments SODIUM (BEAKER) (test wglf=070) 136 meq/L 136-145 POTASSIUM (BEAKER) (test wzkf=944) 4.3 meq/L 3.5-5.1 CHLORIDE (BEAKER) (test jyte=824) 101 meq/L 98-107 CO2 (BEAKER) (test bsoa=260) 25 meq/L 22-29 BLOOD UREA NITROGEN (BEAKER) (test bgeh=016) 72 mg/dL 7-21 CREATININE (BEAKER) (test msej=462) 3.66 mg/dL 0.57-1.25 GLUCOSE RANDOM (BEAKER) (test iiyo=551) 98 mg/dL 70-105 CALCIUM (BEAKER) (test sbaf=517) 8.7 mg/dL 8.4-10.2 EGFR (BEAKER) (test izdt=9377) 17 mL/min/1.73 sq m ESTIMATED GFR IS NOT ACCURATE CREATININE CLEARANCE IN PREDICTING GLOMERULAR FILTRATION RATE. ESTIMATED GFR IS NOT APPLICABLE FOR DIALYSIS PATIENTS. CBC W/PLT COUNT & AUTO [id number] 04:32:00* Test Item Value Reference Range Comments WHITE BLOOD CELL COUNT (BEAKER) (test xchy=704) 4.8 K/ L 4.0-10.0 RED BLOOD CELL COUNT (BEAKER) (test lkgp=764) 3.81 M/ L 4.20-5.80 HEMOGLOBIN (BEAKER) (test lqws=042) 12.8 GM/DL 13.0-16.8 HEMATOCRIT (BEAKER) (test yuwr=351) 35.9 % 40.0-50.0 MEAN CORPUSCULAR VOLUME (BEAKER) (test jlgu=231) 94.3 fL 82.0-98.0 MEAN CORPUSCULAR HEMOGLOBIN (BEAKER) (test kxsn=123) 33.6 pg 27.0-33.0 MEAN CORPUSCULAR HEMOGLOBIN CONC (BEAKER) (test vuqn=426) 35.7 GM/DL 32.0-36.0 RED CELL DISTRIBUTION WIDTH (BEAKER) (test oegs=570) 12.6 % 10.3-14.2 PLATELET COUNT (BEAKER) (test egtt=445) 118 K/CU MM 150-430 MEAN PLATELET VOLUME (BEAKER) (test rlmt=640) 7.9 fL 6.5-10.5 NUCLEATED RED BLOOD CELLS (BEAKER) (test gejn=312) 0 /100 WBC 0-0 NEUTROPHILS RELATIVE PERCENT (BEAKER) (test aten=348) 55 % LYMPHOCYTES RELATIVE PERCENT (BEAKER) (test vpzv=744) 24 % MONOCYTES RELATIVE PERCENT (BEAKER) (test mliu=269) 14 % EOSINOPHILS RELATIVE PERCENT (BEAKER) (test uefa=320) 7 % BASOPHILS RELATIVE PERCENT (BEAKER) (test bmcq=359) 0 % NEUTROPHILS ABSOLUTE COUNT (BEAKER) (test uzqc=252) 2.65 K/ L 1.80-8.00 LYMPHOCYTES ABSOLUTE COUNT (BEAKER) (test nhgh=008) 1.17 K/ L 1.48-4.50 MONOCYTES ABSOLUTE COUNT (BEAKER) (test wgpy=482) 0.68 K/ L 0.00-1.30 EOSINOPHILS ABSOLUTE COUNT (BEAKER) (test bvdc=686) 0.33 K/ L 0.00-0.50 BASOPHILS ABSOLUTE COUNT (BEAKER) (test ulml=343) 0.01 K/ L 0.00-0.20 0.00POCT-GLUCOSE [id number] 21:11:00* Test Item Value Reference Range Comments POC-GLUCOSE METER (BEAKER) (test gcrb=8672) 124 mg/dL 70-110 TESTED AT [place] [id number] [facility] [address] POCT-GLUCOSE [id number] 11:30:00* Test Item Value Reference Range Comments POC-GLUCOSE METER (BEAKER) (test qqwr=0887) 238 mg/dL 70-110 TESTED AT [place] [id number] [facility] [address] POCT-GLUCOSE [id number] 08:15:00* Test Item Value Reference Range Comments POC-GLUCOSE METER (BEAKER) (test pjhi=1590) 108 mg/dL 70-110 TESTED AT [facility] [address] [facility] [address] CBC W/PLT COUNT & AUTO [id number] 08:08:00* Test Item Value Reference Range Comments WHITE BLOOD CELL COUNT (BEAKER) (test bscj=790) 4.7 K/ L 4.0-10.0 RED BLOOD CELL COUNT (BEAKER) (test mqxr=473) 3.72 M/ L 4.20-5.80 HEMOGLOBIN (BEAKER) (test kkth=141) 12.2 GM/DL 13.0-16.8 HEMATOCRIT (BEAKER) (test opcg=985) 35.4 % 40.0-50.0 MEAN CORPUSCULAR VOLUME (BEAKER) (test lrgn=408) 95.0 fL 82.0-98.0 MEAN CORPUSCULAR HEMOGLOBIN (BEAKER) (test jnfc=659) 32.8 pg 27.0-33.0 MEAN CORPUSCULAR HEMOGLOBIN CONC (BEAKER) (test ffsl=042) 34.6 GM/DL 32.0-36.0 RED CELL DISTRIBUTION WIDTH (BEAKER) (test adqy=452) 12.6 % 10.3-14.2 PLATELET COUNT (BEAKER) (test jgoh=586) 105 K/CU MM 150-430 MEAN PLATELET VOLUME (BEAKER) (test fkgc=312) 8.5 fL 6.5-10.5 NUCLEATED RED BLOOD CELLS (BEAKER) (test ilsy=353) 0 /100 WBC 0-0 NEUTROPHILS RELATIVE PERCENT (BEAKER) (test dvtn=418) 61 % LYMPHOCYTES RELATIVE PERCENT (BEAKER) (test oxuc=550) 19 % MONOCYTES RELATIVE PERCENT (BEAKER) (test nbok=710) 14 % EOSINOPHILS RELATIVE PERCENT (BEAKER) (test ovbt=215) 6 % BASOPHILS RELATIVE PERCENT (BEAKER) (test jqud=139) 0 % NEUTROPHILS ABSOLUTE COUNT (BEAKER) (test qgun=490) 2.85 K/ L 1.80-8.00 LYMPHOCYTES ABSOLUTE COUNT (BEAKER) (test xhcv=235) 0.90 K/ L 1.48-4.50 MONOCYTES ABSOLUTE COUNT (BEAKER) (test bgfz=700) 0.63 K/ L 0.00-1.30 EOSINOPHILS ABSOLUTE COUNT (BEAKER) (test etyk=859) 0.26 K/ L 0.00-0.50 BASOPHILS ABSOLUTE COUNT (BEAKER) (test ljbf=813) 0.01 K/ L 0.00-0.20 0.00BASIC METABOLIC [id number] 07:32:00* Test Item Value Reference Range Comments SODIUM (BEAKER) (test reza=823) 135 meq/L 136-145 POTASSIUM (BEAKER) (test jwwg=932) 4.3 meq/L 3.5-5.1 CHLORIDE (BEAKER) (test vkmg=803) 101 meq/L 98-107 CO2 (BEAKER) (test lhyr=508) 24 meq/L 22-29 BLOOD UREA NITROGEN (BEAKER) (test ikkl=943) 54 mg/dL 7-21 CREATININE (BEAKER) (test pcfi=798) 3.25 mg/dL 0.57-1.25 GLUCOSE RANDOM (BEAKER) (test nvyv=566) 108 mg/dL 70-105 CALCIUM (BEAKER) (test cnfb=500) 8.2 mg/dL 8.4-10.2 EGFR (BEAKER) (test iaft=6999) 19 mL/min/1.73 sq m ESTIMATED GFR IS NOT ACCURATE CREATININE CLEARANCE IN PREDICTING GLOMERULAR FILTRATION RATE. ESTIMATED GFR IS NOT APPLICABLE FOR DIALYSIS PATIENTS. POCT-GLUCOSE [id number] 21:23:00* Test Item Value Reference Range Comments POC-GLUCOSE METER (BEAKER) (test qtpb=3860) 158 mg/dL 70-110 TESTED AT [facility] [address] [facility] [address] POCT-GLUCOSE [id number] 17:34:00* Test Item Value Reference Range Comments POC-GLUCOSE METER (BEAKER) (test umyq=0822) 232 mg/dL 70-110 TESTED AT [facility] [address] [facility] [address] CREATINE KINASE (CK), TOTAL AND [id number] 12:54:00* Test Item Value Reference Range Comments CREATINE KINASE TOTAL (BEAKER) (test kwno=000) 297 U/L 29-200 CREATINE KINASE-MB (BEAKER) (test hmgl=899) 5.8 ng/mL 0.0-6.6 CREATINE KINASE-MB INDEX (BEAKER) (test cqnq=166) 2.0 % Effective 07/10/2014: CK-MB Reference Range ChangeNew: 0.0-6.6 Previous: 0.0- 4.9CK-MB Reference Range:<6.7 Normal6.7-10.0 Borderline>10.0 Abnormal CBC W/PLT COUNT & AUTO [id number] 07:53:00* Test Item Value Reference Range Comments WHITE BLOOD CELL COUNT (BEAKER) (test lgzk=657) 4.4 K/ L 4.0-10.0 RED BLOOD CELL COUNT (BEAKER) (test kvpt=006) 3.69 M/ L 4.20-5.80 HEMOGLOBIN (BEAKER) (test bmyt=725) 12.4 GM/DL 13.0-16.8 HEMATOCRIT (BEAKER) (test lnyn=949) 35.1 % 40.0-50.0 MEAN CORPUSCULAR VOLUME (BEAKER) (test veie=228) 95.2 fL 82.0-98.0 MEAN CORPUSCULAR HEMOGLOBIN (BEAKER) (test uwbh=560) 33.6 pg 27.0-33.0 MEAN CORPUSCULAR HEMOGLOBIN CONC (BEAKER) (test xqer=780) 35.4 GM/DL 32.0-36.0 RED CELL DISTRIBUTION WIDTH (BEAKER) (test wyli=659) 14.4 % 10.3-14.2 PLATELET COUNT (BEAKER) (test bycr=245) 94 K/CU MM 150-430 MEAN PLATELET VOLUME (BEAKER) (test uqdy=168) 8.9 fL 6.5-10.5 NUCLEATED RED BLOOD CELLS (BEAKER) (test ektu=533) 0 /100 WBC 0-0 NEUTROPHILS RELATIVE PERCENT (BEAKER) (test auxt=097) 62 % LYMPHOCYTES RELATIVE PERCENT (BEAKER) (test qhgf=825) 19 % MONOCYTES RELATIVE PERCENT (BEAKER) (test wvsx=189) 14 % EOSINOPHILS RELATIVE PERCENT (BEAKER) (test jaiq=208) 5 % BASOPHILS RELATIVE PERCENT (BEAKER) (test bxkd=932) 0 % NEUTROPHILS ABSOLUTE COUNT (BEAKER) (test wjcm=593) 2.72 K/ L 1.80-8.00 LYMPHOCYTES ABSOLUTE COUNT (BEAKER) (test ocqc=158) 0.83 K/ L 1.48-4.50 MONOCYTES ABSOLUTE COUNT (BEAKER) (test qcnx=172) 0.61 K/ L 0.00-1.30 EOSINOPHILS ABSOLUTE COUNT (BEAKER) (test cnnd=714) 0.22 K/ L 0.00-0.50 BASOPHILS ABSOLUTE COUNT (BEAKER) (test ojbp=270) 0.01 K/ L 0.00-0.20 0.00BASIC METABOLIC [id number] 07:50:00* Test Item Value Reference Range Comments SODIUM (BEAKER) (test tsys=386) 136 meq/L 136-145 POTASSIUM (BEAKER) (test rjfz=562) 4.2 meq/L 3.5-5.1 CHLORIDE (BEAKER) (test phpu=620) 101 meq/L 98-107 CO2 (BEAKER) (test lztu=913) 25 meq/L 22-29 BLOOD UREA NITROGEN (BEAKER) (test smcg=288) 34 mg/dL 7-21 CREATININE (BEAKER) (test oqqq=755) 2.43 mg/dL 0.57-1.25 GLUCOSE RANDOM (BEAKER) (test cdod=480) 121 mg/dL 70-105 CALCIUM (BEAKER) (test atiq=576) 8.4 mg/dL 8.4-10.2 EGFR (BEAKER) (test mxml=0970) 27 mL/min/1.73 sq m ESTIMATED GFR IS NOT ACCURATE CREATININE CLEARANCE IN PREDICTING GLOMERULAR FILTRATION RATE. ESTIMATED GFR IS NOT APPLICABLE FOR DIALYSIS PATIENTS. [id number] 07:36:00* Test Item Value Reference Range Comments PHOSPHORUS (BEAKER) (test xkwd=609) 3.3 mg/dL 2.3-4.7 [id number] 07:36:00* Test Item Value Reference Range Comments MAGNESIUM (BEAKER) (test whrl=269) 2.3 mg/dL 1.6-2.6 CREATINE KINASE (CK), TOTAL AND [id number] 07:36:00* Test Item Value Reference Range Comments CREATINE KINASE TOTAL (BEAKER) (test urnq=396) 259 U/L 29-200 CREATINE KINASE-MB (BEAKER) (test qqbw=944) 4.4 ng/mL 0.0-6.6 CREATINE KINASE-MB INDEX (BEAKER) (test eunt=075) 1.7 % Effective 07/10/2014: CK-MB Reference Range ChangeNew: 0.0-6.6 Previous: 0.0- 4.9CK-MB Reference Range:<6.7 Normal6.7-10.0 Borderline>10.0 Abnormal HEPATITIS B SURFACE [id number] 02:12:00* Test Item Value Reference Range Comments HEPATITIS B SURFACE ANTIGEN (2) (BEAKER) (test kqqu=1242) Nonreactive Nonreactive Pls add to specimen drawn earlier.CREATINE KINASE (CK), TOTAL AND [id number] 02:05:00* Test Item Value Reference Range Comments CREATINE KINASE TOTAL (BEAKER) (test hfob=246) 274 U/L 29-200 CREATINE KINASE-MB (BEAKER) (test yhrg=241) 5.3 ng/mL 0.0-6.6 CREATINE KINASE-MB INDEX (BEAKER) (test mrzv=077) 1.9 % Effective 07/10/2014: CK-MB Reference Range ChangeNew: 0.0-6.6 Previous: 0.0- 4.9CK-MB Reference Range:<6.7 Normal6.7-10.0 Borderline>10.0 Abnormal TROPONIN [id number] 02:05:00* Test Item Value Reference Range Comments TROPONIN I (BEAKER) (test dqlo=479) 0.01 ng/mL 0.00-0.03 Effective 07/10/2014: Reference Range ChangeNew: 0.00-0.03 Previous 0.00-0.15T roponin I (TnI) levels must be interpreted in the context of the presenting symp toms and the clinical findings. Elevated TnI levels indicate myocardial damage, but are not specific for ischemic heart disease. Elevated TnI levels are seen in patients with other cardiac conditions (including myocarditis and congestive he art failure), and slight TnI elevations occur in patients with other conditions, including sepsis, renal failure, acidosis, acute neurological disease, and pers istent tachyarrhythmia.CREATINE KINASE (CK), TOTAL AND [id number] 19:36:00* Test Item Value Reference Range Comments CREATINE KINASE TOTAL (BEAKER) (test nbjz=929) 275 U/L 29-200 CREATINE KINASE-MB (BEAKER) (test qmga=868) 6.0 ng/mL 0.0-6.6 CREATINE KINASE-MB INDEX (BEAKER) (test bhmp=820) 2.2 % Effective 07/10/2014: CK-MB Reference Range ChangeNew: 0.0-6.6 Previous: 0.0- 4.9CK-MB Reference Range:<6.7 Normal6.7-10.0 Borderline>10.0 Abnormal TROPONIN [id number] 19:36:00* Test Item Value Reference Range Comments TROPONIN I (BEAKER) (test jnzr=368) 0.02 ng/mL 0.00-0.03 Effective 07/10/2014: Reference Range ChangeNew: 0.00-0.03 Previous 0.00-0.15T roponin I (TnI) levels must be interpreted in the context of the presenting symp toms and the clinical findings. Elevated TnI levels indicate myocardial damage, but are not specific for ischemic heart disease. Elevated TnI levels are seen in patients with other cardiac conditions (including myocarditis and congestive he art failure), and slight TnI elevations occur in patients with other conditions, including sepsis, renal failure, acidosis, acute neurological disease, and pers istent tachyarrhythmia.POCT-GLUCOSE [id number] 19:05:00* Test Item Value Reference Range Comments POC-GLUCOSE METER (BEAKER) (test oonv=1815) 134 mg/dL 70-110 TESTED AT [address] [address] BASIC METABOLIC [id number] 14:29:00* Test Item Value Reference Range Comments SODIUM (BEAKER) (test dakm=830) 136 meq/L 136-145 POTASSIUM (BEAKER) (test pxft=516) 5.0 meq/L 3.5-5.1 CHLORIDE (BEAKER) (test jomk=077) 104 meq/L 98-107 CO2 (BEAKER) (test tgnl=359) 24 meq/L 22-29 BLOOD UREA NITROGEN (BEAKER) (test jrwm=120) 60 mg/dL 7-21 CREATININE (BEAKER) (test nopk=248) 3.49 mg/dL 0.57-1.25 GLUCOSE RANDOM (BEAKER) (test kfhw=902) 337 mg/dL 70-105 CALCIUM (BEAKER) (test gkrn=596) 8.4 mg/dL 8.4-10.2 EGFR (BEAKER) (test bels=3851) 18 mL/min/1.73 sq m ESTIMATED GFR IS NOT ACCURATE CREATININE CLEARANCE IN PREDICTING GLOMERULAR FILTRATION RATE. ESTIMATED GFR IS NOT APPLICABLE FOR DIALYSIS PATIENTS. CREATINE KINASE (CK), TOTAL AND [id number] 14:25:00* Test Item Value Reference Range Comments CREATINE KINASE TOTAL (BEAKER) (test hepl=777) 255 U/L 29-200 CREATINE KINASE-MB (BEAKER) (test kvqm=795) 5.6 ng/mL 0.0-6.6 CREATINE KINASE-MB INDEX (BEAKER) (test ootg=702) 2.2 % Effective 07/10/2014: CK-MB Reference Range ChangeNew: 0.0-6.6 Previous: 0.0- 4.9CK-MB Reference Range:<6.7 Normal6.7-10.0 Borderline>10.0 Abnormal TROPONIN [id number] 14:25:00* Test Item Value Reference Range Comments TROPONIN I (BEAKER) (test yjel=395) 0.02 ng/mL 0.00-0.03 Effective 07/10/2014: Reference Range ChangeNew: 0.00-0.03 Previous 0.00-0.15T roponin I (TnI) levels must be interpreted in the context of the presenting symp toms and the clinical findings. Elevated TnI levels indicate myocardial damage, but are not specific for ischemic heart disease. Elevated TnI levels are seen in patients with other cardiac conditions (including myocarditis and congestive he art failure), and slight TnI elevations occur in patients with other conditions, including sepsis, renal failure, acidosis, acute neurological disease, and pers istent tachyarrhythmia.B-TYPE NATRIURETIC FACTOR (BNP)2017-03-05 14:25:00* Test Item Value Reference Range Comments B-TYPE NATRIURETIC PEPTIDE (BEAKER) (test qsmu=635) 1417 pg/mL 0-100 CBC W/PLT COUNT & AUTO [id number] 14:17:00* Test Item Value Reference Range Comments WHITE BLOOD CELL COUNT (BEAKER) (test suaf=622) 5.7 K/ L 4.0-10.0 RED BLOOD CELL COUNT (BEAKER) (test ythr=968) 3.41 M/ L 4.20-5.80 HEMOGLOBIN (BEAKER) (test gscr=296) 11.4 GM/DL 13.0-16.8 HEMATOCRIT (BEAKER) (test dqic=004) 33.1 % 40.0-50.0 MEAN CORPUSCULAR VOLUME (BEAKER) (test faqq=608) 96.9 fL 82.0-98.0 MEAN CORPUSCULAR HEMOGLOBIN (BEAKER) (test jrwr=707) 33.4 pg 27.0-33.0 MEAN CORPUSCULAR HEMOGLOBIN CONC (BEAKER) (test qctg=073) 34.5 GM/DL 32.0-36.0 RED CELL DISTRIBUTION WIDTH (BEAKER) (test kfik=430) 12.9 % 10.3-14.2 PLATELET COUNT (BEAKER) (test ffld=225) 97 K/CU MM 150-430 MEAN PLATELET VOLUME (BEAKER) (test qoxu=247) 8.3 fL 6.5-10.5 NUCLEATED RED BLOOD CELLS (BEAKER) (test okzs=269) 0 /100 WBC 0-0 NEUTROPHILS RELATIVE PERCENT (BEAKER) (test wfje=865) 75 % LYMPHOCYTES RELATIVE PERCENT (BEAKER) (test rlqb=736) 11 % MONOCYTES RELATIVE PERCENT (BEAKER) (test yfwg=507) 11 % EOSINOPHILS RELATIVE PERCENT (BEAKER) (test ggtj=056) 3 % BASOPHILS RELATIVE PERCENT (BEAKER) (test dhqj=719) 0 % NEUTROPHILS ABSOLUTE COUNT (BEAKER) (test vswr=176) 4.26 K/ L 1.80-8.00 LYMPHOCYTES ABSOLUTE COUNT (BEAKER) (test dqgk=490) 0.64 K/ L 1.48-4.50 MONOCYTES ABSOLUTE COUNT (BEAKER) (test lkpm=557) 0.65 K/ L 0.00-1.30 EOSINOPHILS ABSOLUTE COUNT (BEAKER) (test dkzf=177) 0.15 K/ L 0.00-0.50 BASOPHILS ABSOLUTE COUNT (BEAKER) (test jaax=254) 0.00 K/ L 0.00-0.20 0.00PT/[id number] 14:09:00* Test Item Value Reference Range Comments PROTIME (BEAKER) (test edva=225) 15.7 seconds 11.7-14.7 INR (BEAKER) (test zbdi=000) 1.3 <=5.9 PARTIAL THROMBOPLASTIN TIME (BEAKER) (test dtvb=495) 33.8 seconds 22.5-36.0 RECOMMENDED COUMADIN/WARFARIN INR THERAPY RANGESSTANDARD DOSE: 2.0 - 3.0 Inclu khai: PROPHYLAXIS for venous thrombosis, systemic embolization; TREATMENT for nael ous thrombosis and/or pulmonary embolus.HIGH RISK: Target INR is 2.5-3.5 for pat ients with mechanical heart valves.
[2018-07-20] MEDS ORDERED: DIATRIZOATE MEGL/DIATRIZOA SOD 30 ML BTL PO ONE (00:54)
[2018-07-20] MEDS ORDERED: PANTOPRAZOLE 40 MG 10ML VIAL IV STA (01:13)
[2018-07-20] MEDS ORDERED: ONDANSETRON HCL INJ 2 MG/ML VIAL IV STA (01:13)
[2018-07-20] MEDS ORDERED: MORPHINE SULFATE 2 MG/ML SYR IV STA (01:14)
[2018-07-20 01:25] LABS: BASOPHILS # (AUTO) 0.1 (0.0-0.1); BASOPHILS % 0.3 % (0.0-1.0); EOSINOPHILS # (AUTO) 0.1 (0.0-0.4); HEMATOCRIT 26.7 % (38.2-49.6); HEMOGLOBIN 9.2 g/dL (14.0-18.0); LYMPHOCYTES # (AUTO) 2.7 (1.0-3.2); LYMPHOCYTES % 18.9 % (18.0-39.1); MEAN CORPUSCULAR HEMOGLOBIN 31.5 pg (28-32); MEAN CORPUSCULAR HGB CONC 34.5 g/dL (31-35); MEAN CORPUSCULAR VOLUME 91.4 fL (81-99); MONOCYTES % 7.2 % (4.4-11.3); NEUTROPHILS # (AUTO) 10.4 (2.1-6.9); NEUTROPHILS % 71.9 % (38.7-80.0); PLATELET COUNT 161 x10e3/uL (140-360); RED BLOOD COUNT 2.92 x10e6/uL (4.3-5.7); RED CELL DISTRIBUTION WIDTH 13.6 % (11.7-14.4)
[2018-07-20] MEDS ORDERED: MORPHINE SULFATE 2 MG/ML SYR ONE (01:33)
[2018-07-20] MEDS ORDERED: ONDANSETRON HCL INJ 2 MG/ML VIAL ONE (01:33)
[2018-07-20] MEDS ORDERED: PANTOPRAZOLE 40 MG 10ML VIAL ONE (01:33)
[2018-07-20 01:37] LABS: INR 1.07; PROTHROMBIN TIME 14.9 seconds (11.9-14.5)
[2018-07-20 01:38] LABS: PARTIAL THROMBOPLASTIN TIME 30.1 seconds (23.8-35.5)
[2018-07-20 01:40] LABS: BILIRUBIN,URINE NEGATIVE (NEGATIVE); CLARITY,URINE CLEAR (CLEAR); COLOR,URINE YELLOW (YELLOW); KETONES,URINE NEGATIVE (NEGATIVE); LEUKOCYTE ESTERASE ,URINE NEGATIVE (NEGATIVE); NITRITE,URINE NEGATIVE (NEGATIVE); PROTEIN,URINE DIPSTICK TRACE (NEGATIVE); URINE UROBILINOGEN 0.2 mg/dL (0.2 - 1)
[2018-07-20 01:48] LABS: BACTERIA,URINE RARE /HPF; EPITHELIAL CELLS,URINE FEW /LPF; WBC,URINE (MAN) 0-5 /HPF (0-5)
[2018-07-20 01:57] LABS: ALBUMIN 3.4 g/dL (3.5-5.0); ALBUMIN/GLOBULIN RATIO 0.9 (0.8-2.0); ANION GAP 22.5 mmol/L (8-16); CALCIUM 10.1 mg/dL (8.4-10.2); CREATININE, SERUM 5.04 mg/dL (0.72-1.25); POTASSIUM 5.5 mmol/L (3.5-5.1)
[2018-07-20] MEDS ORDERED: INSULIN REGULAR, HUMAN 100 UNIT/1 ML 3ML VIAL SQ ONE (02:00)
[2018-07-20 02:44] LABS: CREATINE KINASE MB 7.7 ng/mL (0-5.0)
--- NOTE | 2018-07-20 03:06 | Diagnostic Imaging Report ---
EXAM: CT ABDOMEN AND PELVIS without IV CONTRAST INDICATION: Abdominal pain COMPARISON: None TECHNIQUE: The abdomen and pelvis were scanned using a multidetector helical scanner. Coronal and sagittal reformations were obtained. Dose modulation, iterative reconstruction, and/or weight based adjustment of the mA/kV was utilized to reduce the radiation dose to as low as reasonably achievable. Routine protocol performed. IV Contrast: None Oral Contrast: Gastrografin CTDIvol has been reviewed. It is below the limits set by the Radiation Protocol Committee (RPC). FINDINGS: LOWER THORAX: No consolidations LIVER: At least 4 subcentimeter hypodensities and a 2.5 cm hypodensity in the liver most consistent with cysts. BILIARY: Normal gallbladder. No ductal dilation. SPLEEN: No masses PANCREAS: No masses ADRENALS: No nodules RIGHT KIDNEY: Small kidney measuring approximately 8 cm in length with cortical thinning. No nephroureterolithiasis or hydronephrosis. Mild perinephric fat stranding. LEFT KIDNEY: Small kidney measuring approximately 8 cm in length with cortical thinning. No nephroureterolithiasis or hydronephrosis. Mild perinephric fat stranding. Simple exophytic cyst arising from the posterior lateral aspect of the interpolar region measuring 2.2 cm. GI TRACT: No wall thickening or obstruction. Normal appendix. VESSELS: Advanced atherosclerotic changes of the abdominal aorta without aneurysm. PERITONEUM/RETROPERITONEUM: No free air or fluid LYMPH NODES: No lymphadenopathy REPRODUCTIVE ORGANS: Normal BLADDER: Normal SOFT TISSUES: Normal BONES: No suspicious bone lesions. Advanced degenerative changes of the thoracolumbar spine. Flowing anterior osteophytes of the thoracic spine. Chronic T12 compression. IMPRESSION: No acute findings in the CT of the abdomen or pelvis. Appearance of kidneys consistent with chronic medical renal disease. Signed by: Dr. Bailey Mir M.D. on 07/20/2018 3:02 AM
--- OUTSIDE RECORDS SUMMARY | 2018-07-20 03:59 | XMS REPORT | Clinical Summary ---
Author Author CLARA Xi'an [email or web address] Memorial HospitalUrgent Group [facility] Address Unknown Phone Unavailable Care Team Providers Care Steward/Stewardess Lounge Name Role Phone Lynda Xiong MD PCP [...] disease) (HCC); Weakness; Anemia, unspecified type 12/01/2017 [facility] General Internal Medicine - Encounter 12/04/2017 [...] (H)Comment: TESTED AT 70 - 110 mg/dL [facility] [address] [facility] [address] Specimen Blood Performing Organization Address City/State/Zipcode Phone Number [address] [phone] [facility] * Manual Differential (12/04/2017 5:52 AM CDT) % Neutros (manual) 69 % [facility] % Lymphs (manual) 14 % [facility] % Monos (manual) 9 % [facility] % Eos (manual) 7 % [facility] % Baso (manual) 0 % [facility] % Bands (manual) 1 0 - 10 % [facility] # Neutros (manual) 1.66 (L) 1.80 - 8.00 K/L [facility] # Lymphs (manual) 0.34 (L) 1.48 - 4.50 K/L [facility] # Monos (manual) 0.22 0.00 - 1.30 K/L [facility] # Eos (manual) 0.17 0.00 - 0.50 K/L [facility] # Baso (manual) 0.00 0.00 - 0.20 K/L [facility] # Bands (manual) 0.0 0.0 - 0.8 K/L [facility] Total Counted 100 [facility] Bands plus Segmented 1.68 [facility] Neutrophils [facility] WBC Morphology Normal [facility] Platelet Morphology Normal [facility] RBC Morphology Normal [facility] Specimen Blood Performing Organization Address City/State/Zipcode Phone Number [facility] [address] [place] [address] [facility] * CBC with platelet count + automated diff (12/04/2017 5:52 AM CDT) Only the most recent of 3 results within the time period is included. WBC 2.4 (L) 3.5 - 10.5 K/L [facility] RBC 2.97 (L) 4.63 - 6.08 M/L [facility] Hemoglobin 8.7 (L) 13.7 - 17.5 GM/DL [facility] Hematocrit 26.6 (L) 40.1 - 51.0 % [facility] MCV 89.6 79.0 - 92.2 fL [facility] MCH 29.3 25.7 - 32.2 pg [facility] MCHC 32.7 32.3 - 36.5 GM/DL [facility] RDW 14.8 (H) 11.6 - 14.4 % [facility] Platelets 77 (L) 150 - 450 K/CU MM [facility] MPV 11.8 9.4 - 12.4 fL [facility] nRBC 0 0 - 0 /100 WBC [facility] Immature 0 0 - 1 % [facility] Granulocytes-Relative [facility] Specimen Blood Performing Organization Address City/State/Zipcode Phone Number [facility] [address] [place] [address] [facility] * Basic Metabolic Panel (12/04/2017 5:52 AM CDT) Only the most recent of 4 results within the time period is included. Sodium 135 (L) 136 - 145 meq/L [facility] Potassium 4.4 3.5 - 5.1 meq/L [facility] Chloride 102 98 - 107 meq/L [facility] CO2 25 22 - 29 meq/L [facility] BUN 33 (H) 7 - 21 mg/dL [facility] Creatinine 3.00 (H) 0.57 - 1.25 mg/dL [facility] Glucose 184 (H) 70 - 105 mg/dL [facility] Calcium 8.0 (L) 8.4 - 10.2 mg/dL [facility] EGFR 21Comment: ESTIMATED GFR IS mL/min/1.73 sq m [facility] NOT ACCURATE CREATININE [facility] CLEARANCE IN PREDICTING GLOMERULAR FILTRATION RATE. ESTIMATED GFR IS NOT APPLICABLE FOR DIALYSIS PATIENTS. Specimen Blood Performing Organization Address City/State/Zipcode Phone Number [facility] [address] [place] [address] [facility] * HEMODIALYSIS INPATIENT (12/04/2017 12:17 AM CDT) [...] included. Phosphorus 3.7 2.3 - 4.7 mg/dL [facility] Specimen Blood - Arm, Left Performing Organization Address City/State/Zipcode Phone Number [facility] [address] [place] [address] [facility] * Hemoglobin and hematocrit (12/03/2017 5:55 PM CDT) Only the most recent of 4 results within the time period is included. Hemoglobin 8.9 (L) 13.7 - 17.5 GM/DL [facility] Hematocrit 27.5 (L) 40.1 - 51.0 % [facility] Specimen Blood - Arm, Right Performing Organization Address City/State/Zipcode Phone Number [facility] [address] [place] [address] [facility] * TRANSFUSION SERVICE REPORT - SCAN (12/03/2017 5:44 PM CDT) Only the most recent of 2 results within the time period is included. Narrative Performed At * FL small bowel series (12/03/2017 3:40 PM CDT) Narrative Performed At FINAL REPORT [employer] Small bowel follow through: Comparison: April 25, [...] MD Report Verified Date/Time:12/03/2017 15:57:25 Reading Location: [address] Ortho Consult Reading Room Procedure Note [...] Report Verified Date/Time: 12/03/2017 15:57:25 Reading Location: [facility] C013 Ortho Consult Reading Room Performing Organization Address City/State/Zipcode Phone Number [facility] * Prepare Leuko-Red RBC (12/02/2017 11:55 PM CDT) Only the most recent of 2 results within the time period is included. CROSSMATCH COMPATIBLE [place]AFET[place] Unit ABO O Pos [place] UNIT NUMBER [id number] [place] Status TRANSFUSED [place] Blood Bank Product RED BLOOD CELLS [place] PRODUCT CODE [id number] [place] Specimen Other Performing Organization Address [facility] Phone Number [place] * Hepatitis B Panel (12/02/2017 9:06 PM CDT) Hep B Core Total Ab NON-REACTIVE Nonreactive [facility] Hep B S Ab <8.0 <8.0 mIU/mL [facility] hepatitis B Surface Ag NON-REACTIVE Nonreactive [facility] Specimen Blood Performing Organization Address [facility] Phone Number [address] [address] [phone] [address] * REPORT OF PROCEDURE - ENDOSCOPY URL (12/02/2017 11:48 AM CDT) Narrative Performed At * aPTT (12/02/2017 5:57 AM CDT) PTT 31.1 22.5 - 36.0 seconds [facility] Specimen Blood Performing Organization Address [facility] Phone Number [address] [address] [phone] [address] * Prothrombin time/INR (12/02/2017 5:57 AM CDT) Protime 14.6 11.7 - 14.7 seconds [facility] INR 1.1 <=5.9 [facility] Specimen Blood Narrative Performed At RECOMMENDED COUMADIN/WARFARIN INR THERAPY RANGES [facility] STANDARD DOSE: 2.0 - 3.0 Includes: PROPHYLAXIS for venous thrombosis, [facility] systemic embolization; TREATMENT for venous thrombosis and/or pulmonary embolus. HIGH RISK: Target INR is 2.5-3.5 for patients with mechanical heart valves. Performing Organization Address [facility] Phone Number [address] [address] [phone] [place] [address] * Magnesium (12/02/2017 5:57 AM CDT) Magnesium 2.2 1.6 - 2.6 mg/dL [facility] Specimen Blood Performing Organization Address [facility]/Zipcode Phone Number [facility] [address] [place] [address] [facility] * Transfuse Leuko-Red RBC (12/02/2017 3:00 AM [...] condition. * POCT OCCULT BLOOD STOOL (GUIAC) [facility] ED & CEC'S ONLY (12/01/2017 4:45 PM CDT) Fecal Occult Blood Positive (A) Negative (ia), POC QC Result Acceptable?, QC Acceptable POC FOB Card Lot #, POC [id number] [id number] 07-11 FOB Developer Lot # [id number] 2019-07 Specimen Stool * Type and screen, automated [facility]) (12/01/2017 4:41 PM CDT) ABO/RH AUTOMATED (BEAKER) O POSITIVE [facility] Ab Scrn NEGATIVE [facility] Specimen Blood - Arm, Right Performing Organization Address [facility]/Zipcode Phone Number [place] [phone] [place] [address] [phone] [place] [address] * PT/aPTT (12/01/2017 4:41 PM CDT) Protime 14.4 11.7 - 14.7 seconds [facility] INR 1.1 <=5.9 [facility] PTT 27.6 22.5 - 36.0 seconds [facility] Specimen Blood - Arm, Right Narrative Performed At RECOMMENDED COUMADIN/WARFARIN INR THERAPY RANGES [facility] STANDARD DOSE: 2.0 - 3.0 Includes: PROPHYLAXIS for venous thrombosis, [facility] systemic embolization; TREATMENT for venous thrombosis and/or pulmonary embolus. HIGH RISK: Target INR is 2.5-3.5 for patients with mechanical heart valves. Performing Organization Address City/[facility] Phone Number [facility] [address] [place] [address] [facility] * Hepatic function panel (12/01/2017 4:41 PM CDT) Protein, Total 7.0Comment: Specimen slightly 6.0 - 8.3 gm/dL [facility] Albumin 3.4 (L)Comment: Specimen 3.5 - 5.0 g/dL [facility] Total Bilirubin 0.4Comment: Specimen slightly 0.2 - 1.2 mg/dL [facility] Bilirubin, Direct 0.2Comment: Specimen slightly 0.1 - 0.5 mg/dL [facility] Alkaline Phosphatase 110 40 - 150 U/L [facility] AST 46 (H)Comment: Specimen 5 - 34 U/L [facility] slightly hemolyzed [facility] ALT 23Comment: Specimen slightly 6 - 55 U/L [facility] Specimen Blood - Arm, Right Performing Organization Address City/[facility]/Zipcode Phone Number [facility] [address] [place] [address] [facility] after 07/19/2017 Insurance Payer Benefit Subscriber ID Type Phone Address Plan / Group C[employer] - MGD CARE CIGNA COH xxxxxxxxxxx HMO/POS NETWORK CIGNA LIFESOURCE CIGNA xxxxxxxxxxx Transplant TRANSPLANT LIFESOURCE s TRANSPLANT MEDICARE MEDICARE A xxxxxxxxxx Medicare B Advance Directives For more information, please contact: [facility] [address] [place] [address] Date Inactivated Comments Code Status [...]
[2018-07-20] MEDS ORDERED: DEXTROSE 50% SYRINGE 50 ML IV PRN (04:00)
[2018-07-20] MEDS ORDERED: SODIUM CHLORIDE FLUSH 10 ML SYR INJ PRN (04:00)
[2018-07-20] MEDS ORDERED: LOSARTAN POTASS25 MG PO (04:35)
[2018-07-20] MEDS ORDERED: FUROSEMIDE80 MG PO (04:35)
[2018-07-20] MEDS ORDERED: METOPROLOL TAR100 MG PO (04:35)
[2018-07-20] MEDS ORDERED: METOLAZONE2.5 MG PO (04:35)
[2018-07-20] MEDS ORDERED: VERAPAMIL HCL360 MG PO (04:35)
[2018-07-20] MEDS ORDERED: RENAGEL800 MG PO (04:35)
[2018-07-20] MEDS: MORPHINE SULFATE 2 MG/ML SYR IV PRN ×2 (04:52→09:28)
[2018-07-20 07:15] VITALS: BP 127/53
[2018-07-20 07:59] VITALS: BP 124/72
[2018-07-20] MEDS: INSULIN REGULAR, HUMAN 100 UNIT/1 ML 3ML VIAL SQ SCH ×4 (08:30→20:16)
[2018-07-20] MEDS: ONDANSETRON HCL INJ 2 MG/ML VIAL IV PRN ×2 (09:28→20:04)
[2018-07-20] MEDS ORDERED: SODIUM CHLORIDE 0.9% 1000ML 2,000 ML ONE (10:00)
[2018-07-20] MEDS ORDERED: MANNITOL 25% 12.5GM/50 ML VIAL IV PRN (10:00)
[2018-07-20] MEDS ORDERED: SODIUM CHLORIDE 0.9% 1000ML 2,000 ML IV PRN (10:00)
[2018-07-20] MEDS ORDERED: ALBUMIN 25% 12.5GM 0.25 GM/ML BTL IV PRN (10:00)
[2018-07-20] MEDS ORDERED: INSULIN DETEMIR 100 UNIT/ML PEN SQ ONE (12:10)
[2018-07-20] MEDS ORDERED: PANTOPRAZOLE 40 MG 10ML VIAL IV SCH (12:30)
[2018-07-20 12:35] VITALS: BP 95/53
--- NOTE | 2018-07-20 15:12 | Consultation ---
DATE OF CONSULTATION: July 20, 2018 HISTORY OF PRESENT ILLNESS: This is a 63-year-old gentleman, a very poor historian. Apparently he came in because he complained of black stools. He has not had a bowel movement yet. Hemoglobin 9.2. GI has been consulted. He is currently very sleepy but arousable. He cannot tell me which dialysis center he goes to. Denies any shortness of breath or difficulty breathing. Denies any abdominal pain as well. PAST MEDICAL HISTORY: Type-2 diabetes with end-organ damage leading to end-stage renal disease. History of atrial fibrillation. History of AV fistula surgery. He has had prior GI procedures. He has had multiple admissions in the past. Discussed with his . He is an existing patient of Dr. Pichardo, renal specialist, and his primary care physician is Dr. Wilmer Lorenzo. Prior history of pneumonia, acute respiratory failure, systolic heart failure, hypertension, type-2 diabetes and anemia. ALLERGIES: NONSTEROIDAL ANTI-INFLAMMATORY DRUG MEDICATIONS. LABS: White count is 14.4, hemoglobin 9.2, platelets 161. Glucose 210, initially was elevated. Calcium 10.1 with an albumin of 3.4, total protein 7.2, potassium 5.5, bicarbonate 19, creatinine 5.04. CBC as mentioned, hemoglobin 9.2. Urinalysis shows 11-20 RBCs with 0-5 WBCs. He is currently resting in no apparent distress. CURRENT MEDICATIONS: Patient is on ondansetron p.r.n., pantoprazole, morphine p.r.n., insulin. For dose schedule, please see MAR. SOCIAL HISTORY: . very much involved in his care and is on her way here. Discussed with her on the phone. PHYSICAL EXAMINATION VITALS: Patient's blood pressure at the moment is 124/72. Pulse rate 67. Afebrile. HEAD AND NECK: Limited exam. Oral mucosa appears moist. Neck veins are not distended. LUNGS: Harsh vesicular breath sounds. Poor gas exchange but relatively clear. HEART: S1, S2 audible. ABDOMEN: Soft, nontender. LOWER EXTREMITIES: No edema. IMPRESSION AND PLAN 1. Possible gastrointestinal bleed. 2. History of atrial fibrillation and congestive heart failure. 3. End-stage renal disease. 4. Hyperkalemia. 5. Mild metabolic acidosis on dialysis. Sodium 140, potassium 2, bicarb 40, calcium 2.5. Blood flow 400, dialysate 800. UF 1 to 2 liters as tolerated. No heparin to be used. Discussed with . Discussed with RN. Discussed with dialysis nurse. Job#: [id number]
[2018-07-20 16:12] LABS: HEMATOCRIT 22.3 % (38.2-49.6); HEMOGLOBIN 7.9 g/dL (14.0-18.0); MEAN CORPUSCULAR HEMOGLOBIN 31.9 pg (28-32); MEAN CORPUSCULAR HGB CONC 35.4 g/dL (31-35); MEAN CORPUSCULAR VOLUME 89.9 fL (81-99); PLATELET COUNT 125 x10e3/uL (140-360); RED BLOOD COUNT 2.48 x10e6/uL (4.3-5.7); RED CELL DISTRIBUTION WIDTH 13.9 % (11.7-14.4)
[2018-07-20 16:38] LABS: ALBUMIN 3.1 g/dL (3.5-5.0); ALBUMIN/GLOBULIN RATIO 0.9 (0.8-2.0); CALCIUM 9.3 mg/dL (8.4-10.2); CREATININE, SERUM 3.07 mg/dL (0.72-1.25)
--- NOTE | 2018-07-20 17:11 | Diagnostic Imaging Report ---
CT BRAIN WO HISTORY: Altered mental status COMPARISON: None. TECHNIQUE: Noncontrast axial scans were obtained from skull base to the vertex. Coronal and sagittal reconstructions obtained from the axial data. One or more of the following dose reduction techniques were used: Automated exposure control, adjustment of the mA and/or kV according to patient size, and/or utilization of iterative reconstruction technique. DISCUSSION: Scalp/Skull: Unremarkable. Brain sulci: Appropriate for patient's age. Ventricles: Normal in size and configuration. No hydrocephalus. Extra-axial spaces: No masses or fluid collections. Parenchyma: Mild carotid siphon and vertebral artery calcifications are present. No masses, hemorrhage, or large vascular territory acute infarct. Dural sinuses: No abnormal densities. Sellar/Suprasellar region: Intact. Skull base: Intact. Incidental findings: Nonspecific small subcutaneous metallic density in the left premaxillary region is partially visualized. The right ocular lens is thinned. IMPRESSION: No acute intracranial abnormalities. Signed by: Dr. Tony Davis M.D. on 07/20/2018 5:07 PM
[2018-07-20 19:44] VITALS: BP 101/70
[2018-07-20] MEDS: MORPHINE SULFATE INJ 4 MG/ML INJ IV PRN (20:03)
[2018-07-20 20:28] LABS: HYPOCHROMASIA MODERATE; LYMPHOCYTES % (MANUAL) 8 % (19-48); MONOCYTES % (MANUAL) 2 % (3.4-9.0); NEUTROPHILS % (MANUAL) 90 % (40-74); PLATELET ESTIMATE ADEQUATE; PLATELET MORPHOLOGY COMMENT NORMAL; RBC MORPHOLOGY COMMENT NORMAL
[2018-07-20 21:22] VITALS: BP 101/70
[2018-07-20 23:14] VITALS: BP 96/73
[2018-07-21] VITALS (45 sets, daily range): BP systolic 61–151; BP diastolic 39–112
[2018-07-21] MEDS: MORPHINE SULFATE INJ 4 MG/ML INJ IV PRN ×2 (00:06→21:40)
[2018-07-21] MEDS: ONDANSETRON HCL INJ 2 MG/ML VIAL IV PRN (00:06)
[2018-07-21] MEDS ORDERED: PANTOPRAZOLE 40 MG 10ML VIAL IV STA (00:16)
[2018-07-21] MEDS ORDERED: DILTIAZEM HCL 5 MG/ML 5 ML VIAL IV STA (03:01)
[2018-07-21 05:18] LABS: BASOPHILS % 0.2 % (0.0-1.0); EOSINOPHILS # (AUTO) 0.2 (0.0-0.4); EOSINOPHILS % 2.5 % (0.0-6.0); HEMOGLOBIN 7.4 g/dL (14.0-18.0); LYMPHOCYTES # (AUTO) 1.9 (1.0-3.2); LYMPHOCYTES % 21.1 % (18.0-39.1); MEAN CORPUSCULAR HEMOGLOBIN 32.6 pg (28-32); MEAN CORPUSCULAR HGB CONC 35.6 g/dL (31-35); MEAN CORPUSCULAR VOLUME 91.6 fL (81-99); MONOCYTES # (AUTO) 0.8 (0.2-0.8); MONOCYTES % 8.6 % (4.4-11.3); NEUTROPHILS # (AUTO) 6.1 (2.1-6.9); NEUTROPHILS % 67.2 % (38.7-80.0); PLATELET COUNT 124 x10e3/uL (140-360); RED BLOOD COUNT 2.27 x10e6/uL (4.3-5.7); RED CELL DISTRIBUTION WIDTH 14.3 % (11.7-14.4)
[2018-07-21] MEDS: DILTIAZEM HCL 60 MG TAB PO SCH ×4 (05:18→23:52)
[2018-07-21 05:36] LABS: HEMATOCRIT 20.8 % (38.2-49.6)
[2018-07-21 06:02] LABS: ALBUMIN/GLOBULIN RATIO 0.9 (0.8-2.0); ANION GAP 14.2 mmol/L (8-16); CALCIUM 9.1 mg/dL (8.4-10.2); CREATININE, SERUM 4.55 mg/dL (0.72-1.25)
[2018-07-21 06:15] LABS: POTASSIUM 5.2 mmol/L (3.5-5.1)
[2018-07-21] MEDS: INSULIN REGULAR, HUMAN 100 UNIT/1 ML 3ML VIAL SQ SCH ×4 (06:28→21:09)
[2018-07-21 06:47] LABS: % IRON SATURATION 39 % (15-50); IRON 118 ug/dL (65-175); TOTAL IRON BINDING CAPACITY 304 ug/dL (261-478); TRANSFERRIN 217 mg/dL (174-364)
[2018-07-21] MEDS ORDERED: SODIUM CHLORIDE 0.9% 250ML 250 ML IV ONE (09:00)
[2018-07-21 09:49] LABS: MAGNESIUM 2.6 MG/DL (1.3-2.1)
[2018-07-21] MEDS ORDERED: AMIODARONE HCL 900 MG in DEXTROSE 5% 500ML 500 ML IV SCH ×2 (10:15→10:30)
[2018-07-21 10:16] LABS: THYROID STIMULATING HORMONE 3.497 uIU/mL (0.350-4.940)
[2018-07-21] MEDS: PANTOPRAZOLE 40 MG 10ML VIAL IV SCH ×2 (10:18→18:30)
[2018-07-21] MEDS: ACETAMINOPHEN 325 MG TAB PO PRN (10:29)
[2018-07-21 11:30] LABS: CHOL/HDL RATIO 4.7 (3.9-4.7)
--- NOTE | 2018-07-21 15:16 | Consultation ---
DATE OF CONSULTATION: July 21, 2018 CARDIOLOGY CONSULTATION REASON FOR CONSULTATION: AFib. HISTORY OF PRESENT ILLNESS: This is a 63-year-old male with history of end-stage renal disease on HD therapy, paroxysmal AFib status post ablation about 2002, history of CHF, diabetes, anemia, multiple GI bleeds most recent about a year ago, also liver cirrhosis secondary to hepatitis C. The patient presents to [facility] ER with apparently complaint of black stools. Initial hemoglobin was 9.2. However, on repeat, so far 7.2. The patient has positive fecal occult blood and is going to have a GI evaluation. Of note, cardiology consulted secondary to patient went into AFib on telemetry. The patient was seen in room with at the bedside. The patient reports having a history of AFib, status post ablation in 2002. He reports being followed by [facility], Dr. Garg. However, that recently changed. 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 He reports a remote history of heart catheterization by Dr. Mills, which apparently was normal at that time. The patient denies any chest pain, palpitations, dizziness, lightheadedness, any shortness of breath. His main complaint was presenting with abdominal pain for several days with black stools, which made him come to the hospital. He reports here in the hospital he had 1 bowel movement so far that was black in nature. Again, he has fecal occult blood positive. PAST MEDICAL HISTORY 1. End-stage renal disease on HD therapy Wednesday, Wednesday and Wednesday. 2. History of paroxysmal AFib, status post ablation in 2002. 3. History of CHF. 4. Diabetes. 5. Anemia. 6. Liver cirrhosis secondary to hep C. SURGICAL HISTORY 1. AV fistula, left arm. 2. Ablation in 2002. 3. Hemorrhoidectomy. FAMILY HISTORY: Mother is at age of 80, apparently with GA. Father is at age 65 of apparently lung cancer. SOCIAL HISTORY: He is . He is retired. Disabled apparently from back issues. Denies any alcohol use. Positive for tobacco use. HOME MEDICATIONS: Include: 1. Lasix 40 mg twice a day. 2. Lantus 50 units and NovoLog mix 25 units 3 times a day. 3. Losartan 25 mg once a day. 4. Metolazone 2.5 mg once a day. 5. Metoprolol 100 mg twice a day. 6. Renagel. 7. Verapamil 360 mg once a day. ALLERGIES: NSAIDs. REVIEW OF SYSTEMS GENERAL: Denies any weight changes, any fatigue, weakness, fever, chills, or night sweats. SKIN: No rashes. No sores. No moles. HEENT: No nausea or vomiting. No vision changes. No blurry vision, double vision, tinnitus or vertigo. Positive for hearing loss. Denies any earaches. Denies any epistaxis, any sneezing or itching allergies. Denies any hoarseness, sore throat, swollen neck. CARDIAC: Denies any chest pain, any palpitations, any shortness of breath, any orthopnea or PND, any lower extremity edema. RESPIRATORY: Denies any shortness of breath. Positive for dyspnea on exertion. Denies any hemoptysis. GI: Good appetite. Denies any nausea or vomiting. However, positive for abdominal pain prior to admission. Denies any diarrhea or constipation. Positive for black stool. URINARY: Positive for dysuria. Denies any hematuria. VASCULAR: Denies any lower extremity edema or claudication. MUSCULOSKELETAL: Positive for lower back pain. Positive for also generalized joint pain. Denies any muscle weakness. NEUROLOGIC: Denies any numbness, tingling, tremors, blackout, seizures. HEMATOLOGY: Positive for anemia. Positive for black stools in recent history. ENDOCRINE: Denies any heat or cold intolerance, any polyuria, polydipsia, polyphagia. PHYSICAL EXAMINATION VITAL SIGNS: Height 67 inches, weight 233 pounds, BMI 36.5. Vital signs currently: Pulse 136, temperature 97.5, respiratory rate 16, blood pressure 96/73. Pulse ox is 100% on room air. GENERAL: Appears stated age, well-developed man in no acute distress. SKIN: No rashes. No bruises. Left AV fistula. HEENT: Normocephalic. Pupils are equal and reactive. Extraocular motor intact. Trachea is midline. Oral mucosa is pink. No JVD. No carotid bruit. HEART: Irregular rhythm. No murmurs. No clicks. LUNGS: Bilateral breath sounds are clear to auscultation, however diminished throughout. MUSCULOSKELETAL: Good muscle strength throughout. VASCULAR: +2 bilateral radial pulses, +1 DP and PT bilaterally. No lower extremity edema noted. NEUROLOGIC: Cranial nerves II through XII seem intact. LABS: White count 9, hemoglobin 7.4 (initially on admission 9.2), hematocrit 20.8, platelets 124. Chemistry: Sodium 139, potassium 5.2, chloride 102, bicarb 28, BUN 107, creatinine 4.5. Troponins 0.03, next 0.06. TSH 3.4. EKG is showing normal sinus rhythm. However, currently on tele, AFib with RVR. Positive fecal occult blood. CT negative. Abdomen negative. CT of the head also negative. ASSESSMENT 1. Gastrointestinal bleed. 2. Paroxysmal atrial fibrillation. 3. End-stage renal disease on hemodialysis therapy. 4. Hypertension. 5. History of congestive heart failure, however, seems compensated at this time. 6. Liver cirrhosis secondary to hepatitis C. PLAN 1. The patient presents with GI bleed with black stools positive for fecal occult blood. He is going to have a GI evaluation with EGD. Also, the patient is to receive 2 units of blood. 2. We will put the patient on amiodarone therapy for rhythm control. Also will continue calcium channel piper for rate control. 3. Of course, no anticoagulation or oral anticoagulation at this time. 4. Echo to evaluate heart function and structure. 5. Continue tele monitoring. Thank you very much for this consult. We will continue to monitor the patient and adjust therapy as the course dictates. Dictated by: João Avendano NP Job#: [id number]
--- NOTE | 2018-07-21 18:29 | Diagnostic Imaging Report ---
EXAMINATION: CHEST XRAY POST PROCEDURE INDICATION: ^dialysis catheter insertion ^Y COMPARISON: 11/29/2012 FINDINGS: AP view TUBES and LINES: Right internal jugular dialysis catheter in place with tip overlying inferior SVC. LUNGS: Limited by low lung volumes and body habitus. Mild central vascular congestion. Small consolidation in the left base. PLEURA: No significant pleural effusion or pneumothorax. HEART AND MEDIASTINUM: The cardiomediastinal silhouette is enlarged on this AP view. BONES AND SOFT TISSUES: No acute osseous lesion. Soft tissues are unremarkable. UPPER ABDOMEN: No free air under the diaphragm. IMPRESSION: Right internal jugular dialysis catheter in place with tip overlying inferior SVC. No visible pneumothorax. Mild central vascular congestion. Small consolidation in left base, probably atelectasis and less likely developing. Signed by: Dr. Alexis Miller MD on 07/21/2018 6:25 PM
[2018-07-21] MEDS ORDERED: SODIUM CHLORIDE 0.9% 250ML 250 ML ONE (20:59)
[2018-07-21] MEDS ORDERED: HEPARIN SOD (PORCINE) 1000 UNIT/ML SDV ONE (23:12)
[2018-07-22] VITALS (29 sets, daily range): BP systolic 103–156; BP diastolic 55–101
[2018-07-22] MEDS: MORPHINE SULFATE INJ 4 MG/ML INJ IV PRN ×3 (01:08→21:30)
[2018-07-22 04:44] LABS: BASOPHILS % 0.4 % (0.0-1.0); EOSINOPHILS # (AUTO) 0.3 (0.0-0.4); EOSINOPHILS % 4.3 % (0.0-6.0); HEMATOCRIT 25.5 % (38.2-49.6); HEMOGLOBIN 8.9 g/dL (14.0-18.0); LYMPHOCYTES # (AUTO) 1.7 (1.0-3.2); LYMPHOCYTES % 21.9 % (18.0-39.1); MEAN CORPUSCULAR HEMOGLOBIN 31.8 pg (28-32); MEAN CORPUSCULAR HGB CONC 34.9 g/dL (31-35); MEAN CORPUSCULAR VOLUME 91.1 fL (81-99); MONOCYTES # (AUTO) 1.1 (0.2-0.8); MONOCYTES % 13.8 % (4.4-11.3); NEUTROPHILS # (AUTO) 4.5 (2.1-6.9); NEUTROPHILS % 58.9 % (38.7-80.0); PLATELET COUNT 106 x10e3/uL (140-360); RED CELL DISTRIBUTION WIDTH 14.3 % (11.7-14.4)
[2018-07-22 05:06] LABS: ANION GAP 17.3 mmol/L (8-16); CALCIUM 8.3 mg/dL (8.4-10.2); CREATININE, SERUM 4.74 mg/dL (0.72-1.25); POTASSIUM 4.3 mmol/L (3.5-5.1)
[2018-07-22] MEDS: DILTIAZEM HCL 60 MG TAB PO SCH ×3 (05:29→18:00)
[2018-07-22] MEDS ORDERED: AMIODARONE HCL 200 MG TAB PO SCH (06:00)
[2018-07-22] MEDS ORDERED: HEPARIN SOD (PORCINE) 1000 UNIT/ML SDV IV PRN (06:15)
[2018-07-22] MEDS: INSULIN REGULAR, HUMAN 100 UNIT/1 ML 3ML VIAL SQ SCH ×4 (07:30→21:00)
[2018-07-22] MEDS: AMIODARONE HCL 200 MG TAB PO SCH ×3 (08:56→21:00)
[2018-07-22] MEDS: PANTOPRAZOLE 40 MG 10ML VIAL IV SCH ×2 (08:56→17:00)
[2018-07-22] MEDS ORDERED: LIDOCAINE HCL 2% LOCAL INJ 5 ML SDV VIAL INJ ONE (14:52)
[2018-07-22] MEDS ORDERED: PROPOFOL IV EMULSION 10 MG/ML 20 ML VIAL ONE (14:52)
[2018-07-22] MEDS ORDERED: MIDAZOLAM HCL 2 MG/2 ML VIAL ONE (16:22)
[2018-07-22] MEDS ORDERED: SODIUM CHLORIDE 0.9% 500ML 500 ML ONE (19:56)
[2018-07-23] VITALS (8 sets, daily range): BP systolic 102–161; BP diastolic 51–72
[2018-07-23] MEDS: DILTIAZEM HCL 60 MG TAB PO SCH ×4 (00:46→17:27)
[2018-07-23 05:12] LABS: HEMATOCRIT 22.8 % (38.2-49.6); HEMOGLOBIN 7.8 g/dL (14.0-18.0); MEAN CORPUSCULAR HEMOGLOBIN 31.8 pg (28-32); MEAN CORPUSCULAR HGB CONC 34.2 g/dL (31-35); MEAN CORPUSCULAR VOLUME 93.1 fL (81-99); PLATELET COUNT 92 x10e3/uL (140-360); RED BLOOD COUNT 2.45 x10e6/uL (4.3-5.7); RED CELL DISTRIBUTION WIDTH 14.6 % (11.7-14.4)
[2018-07-23 05:42] LABS: ANION GAP 15.6 mmol/L (8-16); CREATININE, SERUM 5.92 mg/dL (0.72-1.25); POTASSIUM 4.6 mmol/L (3.5-5.1)
[2018-07-23] MEDS: ONDANSETRON HCL INJ 2 MG/ML VIAL IV PRN ×3 (07:21→23:50)
[2018-07-23] MEDS: AMIODARONE HCL 200 MG TAB PO SCH ×5 (09:00→20:53)
[2018-07-23] MEDS: INSULIN REGULAR, HUMAN 100 UNIT/1 ML 3ML VIAL SQ SCH ×4 (09:31→20:55)
[2018-07-23] MEDS: PANTOPRAZOLE 40 MG 10ML VIAL IV SCH ×2 (09:31→17:27)
[2018-07-23] MEDS: MORPHINE SULFATE INJ 4 MG/ML INJ IV PRN ×3 (11:44→23:30)
[2018-07-23] MEDS ORDERED: SODIUM CHLORIDE 0.9% 250ML 250 ML IV NR (12:30)
--- NOTE | 2018-07-23 12:49 | Diagnostic Imaging Report ---
Tagged-RBC GI Bleed Study Clinical information: 63-year-old male with abdominal pain and anemia. Discussion: The patient's own red blood cells were labeled with 25 mCi of technetium-99m pertechnetate using the in vitro method (UltraTag). Dynamic images of the abdomen were obtained through 60 minutes. Distribution of tracer activity appears physiologic throughout the abdomen. No abnormal accumulation of tracer is seen within the gastrointestinal lumen. Impression: No scan evidence of active gastrointestinal bleeding at this time. Signed by: Dr. Tiny Ace M.D. on 07/23/2018 12:46 PM
--- NOTE | 2018-07-23 16:46 | Progress Note ---
DATE: July 23, 2018 NEPHROLOGY DIALYSIS PROGRESS NOTE SUBJECTIVE: Nephrology events noted. The patient is awake, alert, sitting up in bed, fully conversant. Family is at the bedside, son and grandson. The patient has no specific complaints. Denied any specific complaints. Denied any shortness of breath or chest pain. PHYSICAL EXAMINATION GENERAL: Alert, oriented adult male, obese, in no acute distress. VITAL SIGNS: Blood pressure 160/89, heart rate 74 per minute. LUNGS: Bilaterally clear to auscultation. HEART: Normal heart sounds. No additional sounds. ABDOMEN: Soft, nontender. No organomegaly. EXTREMITIES: No cyanosis, clubbing or edema. LABORATORY FINDINGS: Noted and reviewed. ASSESSMENT AND PLAN 1. End-stage renal disease. The patient is receiving hemodialysis and was seen and examined during his dialysis treatment per orders, ultrafiltration as tolerated. 2. Dialysis modality. The patient's left forearm distal radial artery to cephalic vein fistula is clotted and possibly is not salvageable. It is completely collapsed, hard, and possibly fully clotted due to inflow and/or outflow stenosis. The patient had been considering peritoneal dialysis as an alternative modality. He is now determined and agrees to peritoneal dialysis catheter placement and wants it done during this hospitalization. It was discussed with the patient in detail, all his questions were answered. The surgeon will be consulted for placement of a peritoneal dialysis catheter. 1. Disposition. We will follow this patient with you. I have discussed my evaluation, assessment, and plan of care with the patient in all details and all his questions were answered to his satisfaction until he had none. Job#: [id number] [facility]
[2018-07-24] VITALS (8 sets, daily range): BP systolic 109–132; BP diastolic 56–66
[2018-07-24] MEDS: DILTIAZEM HCL 60 MG TAB PO SCH ×4 (00:34→17:33)
[2018-07-24 05:59] LABS: BASOPHILS % 0.4 % (0.0-1.0); EOSINOPHILS # (AUTO) 0.2 (0.0-0.4); EOSINOPHILS % 3.8 % (0.0-6.0); HEMATOCRIT 28.3 % (38.2-49.6); HEMOGLOBIN 9.7 g/dL (14.0-18.0); LYMPHOCYTES # (AUTO) 1.3 (1.0-3.2); LYMPHOCYTES % 28.1 % (18.0-39.1); MEAN CORPUSCULAR HEMOGLOBIN 31.3 pg (28-32); MEAN CORPUSCULAR HGB CONC 34.3 g/dL (31-35); MEAN CORPUSCULAR VOLUME 91.3 fL (81-99); MONOCYTES # (AUTO) 0.6 (0.2-0.8); NEUTROPHILS # (AUTO) 2.5 (2.1-6.9); NEUTROPHILS % 54.1 % (38.7-80.0); PLATELET COUNT 95 x10e3/uL (140-360); RED CELL DISTRIBUTION WIDTH 15.1 % (11.7-14.4)
[2018-07-24 06:39] LABS: ANION GAP 15.1 mmol/L (8-16); CREATININE, SERUM 3.69 mg/dL (0.72-1.25); POTASSIUM 4.1 mmol/L (3.5-5.1)
[2018-07-24] MEDS: PANTOPRAZOLE 40 MG 10ML VIAL IV SCH ×2 (08:03→17:33)
[2018-07-24] MEDS: AMIODARONE HCL 200 MG TAB PO SCH ×3 (08:03→21:37)
[2018-07-24] MEDS: MORPHINE SULFATE INJ 4 MG/ML INJ IV PRN ×4 (08:21→22:50)
[2018-07-24] MEDS: INSULIN REGULAR, HUMAN 100 UNIT/1 ML 3ML VIAL SQ SCH ×4 (08:43→21:35)
[2018-07-24] MEDS: ONDANSETRON HCL INJ 2 MG/ML VIAL IV PRN ×3 (09:30→18:27)
[2018-07-24] MEDS: DOCUSATE SODIUM LIQD 100 MG/10 ML UDC NG SCH (17:33)
[2018-07-25] VITALS (8 sets, daily range): BP systolic 116–145; BP diastolic 56–84
[2018-07-25 05:26] LABS: BASOPHILS % 0.3 % (0.0-1.0); EOSINOPHILS # (AUTO) 0.2 (0.0-0.4); EOSINOPHILS % 5.8 % (0.0-6.0); HEMATOCRIT 26.4 % (38.2-49.6); HEMOGLOBIN 9.1 g/dL (14.0-18.0); LYMPHOCYTES # (AUTO) 0.8 (1.0-3.2); LYMPHOCYTES % 23.9 % (18.0-39.1); MEAN CORPUSCULAR HEMOGLOBIN 31.6 pg (28-32); MEAN CORPUSCULAR HGB CONC 34.5 g/dL (31-35); MEAN CORPUSCULAR VOLUME 91.7 fL (81-99); MONOCYTES # (AUTO) 0.5 (0.2-0.8); MONOCYTES % 15.2 % (4.4-11.3); NEUTROPHILS # (AUTO) 1.9 (2.1-6.9); NEUTROPHILS % 54.5 % (38.7-80.0); PLATELET COUNT 73 x10e3/uL (140-360); RED BLOOD COUNT 2.88 x10e6/uL (4.3-5.7); RED CELL DISTRIBUTION WIDTH 15.1 % (11.7-14.4)
[2018-07-25 05:45] LABS: ANION GAP 15.1 mmol/L (8-16); CALCIUM 7.7 mg/dL (8.4-10.2); CREATININE, SERUM 4.56 mg/dL (0.72-1.25); POTASSIUM 4.1 mmol/L (3.5-5.1)
[2018-07-25] MEDS: DILTIAZEM HCL 60 MG TAB PO SCH ×5 (06:00→23:48)
[2018-07-25 06:31] LABS: FOLATE 7.8 ng/mL (7.0-15.4)
[2018-07-25] MEDS: ONDANSETRON HCL INJ 2 MG/ML VIAL IV PRN ×2 (08:05→13:56)
[2018-07-25] MEDS: INSULIN REGULAR, HUMAN 100 UNIT/1 ML 3ML VIAL SQ SCH ×4 (08:55→22:15)
[2018-07-25] MEDS: PANTOPRAZOLE 40 MG 10ML VIAL IV SCH ×2 (08:56→17:20)
[2018-07-25] MEDS: DOCUSATE SODIUM LIQD 100 MG/10 ML UDC NG SCH (08:56)
[2018-07-25] MEDS: AMIODARONE HCL 200 MG TAB PO SCH ×3 (08:56→22:15)
[2018-07-25] MEDS ORDERED: DIGOXIN INJ 0.25 MG/ML 2 ML AMP IV ONE (16:15)
[2018-07-26] VITALS (24 sets, daily range): BP systolic 103–146; BP diastolic 49–77
[2018-07-26] MEDS: ONDANSETRON HCL INJ 2 MG/ML VIAL IV PRN (02:52)
[2018-07-26] MEDS: ACETAMINOPHEN 325 MG TAB PO PRN (03:30)
[2018-07-26] MEDS ORDERED: AMIODARONE 900MG 500 ML IV ONE (04:40)
[2018-07-26] MEDS ORDERED: AMIODARONE HCL 900 MG in DEXTROSE 5% 500ML 500 ML IV SCH (04:45)
[2018-07-26] MEDS: DILTIAZEM HCL 60 MG TAB PO SCH ×3 (06:58→18:29)
[2018-07-26] MEDS: INSULIN REGULAR, HUMAN 100 UNIT/1 ML 3ML VIAL SQ SCH ×3 (08:15→16:45)
[2018-07-26 08:21] LABS: BASOPHILS % 0.3 % (0.0-1.0); EOSINOPHILS # (AUTO) 0.1 (0.0-0.4); EOSINOPHILS % 3.3 % (0.0-6.0); HEMATOCRIT 25.2 % (38.2-49.6); HEMOGLOBIN 8.8 g/dL (14.0-18.0); LYMPHOCYTES # (AUTO) 0.8 (1.0-3.2); LYMPHOCYTES % 20.7 % (18.0-39.1); MEAN CORPUSCULAR HEMOGLOBIN 31.9 pg (28-32); MEAN CORPUSCULAR HGB CONC 34.9 g/dL (31-35); MEAN CORPUSCULAR VOLUME 91.3 fL (81-99); MONOCYTES # (AUTO) 0.5 (0.2-0.8); NEUTROPHILS # (AUTO) 2.5 (2.1-6.9); NEUTROPHILS % 63.2 % (38.7-80.0); RED BLOOD COUNT 2.76 x10e6/uL (4.3-5.7); RED CELL DISTRIBUTION WIDTH 14.7 % (11.7-14.4)
[2018-07-26 08:24] LABS: PLATELET COUNT 71 x10e3/uL (140-360)
[2018-07-26] MEDS ORDERED: DOCUSATE SODIUM 100 MG CAP PO SCH (09:00)
[2018-07-26] MEDS: AMIODARONE HCL 200 MG TAB PO SCH ×2 (10:30→15:58)
[2018-07-26] MEDS: PANTOPRAZOLE 40 MG 10ML VIAL IV SCH ×2 (10:30→18:29)
--- NOTE | 2018-07-27 06:56 | Diagnostic Imaging Report ---
PROCEDURE:US GUIDANCE FOR VASCULAR ACCESS COMPARISON:None. INDICATIONS:Anemia/placement for dialysis FINDINGS:Ultrasound evaluation of potential access sites was performed. After successfully identifying the right IJ to be patent, US guidance was used to puncture the vein. A permanent recording was created for the patient record. CONCLUSION:Successful IV access into the right internal jugular vein by ultrasound guidance. Charles Henson D.O. Dictated by: Charles Henson D.O. on 07/27/2018 at 7:06 Electronically approved by: Charles Henson D.O. on 07/27/2018 at 7:06
[2018-07-27] MEDS ORDERED: INSULIN REGULAR, HUMAN 100 UNIT/1 ML 3ML VIAL SQ SCH (07:30)
== END 2018-07-26 18:53 | disposition short-term general hospital (02) | DRG 377 ==
LOC: ER 00:28 → ERHOLD 03:55 → IMCU 04:27 → ICU 07-21 14:43 → MED/SURG3 07-22 21:14 → ICU 07-26 04:30
PROVIDERS: ADMIT Internal Medicine; ATTEND Internal Medicine
PROC: 5A1D70Z Performance of Urinary Filtration, Intermittent, Less than 6 Hours Per Day (ICD-10-PCS; 2018-07-20)
PROC: 02HV33Z Insertion of Infusion Device into Superior Vena Cava, Percutaneous Approach (ICD-10-PCS; principal; 2018-07-21)
PROC: 5A1D70Z Performance of Urinary Filtration, Intermittent, Less than 6 Hours Per Day (ICD-10-PCS; 2018-07-21)
PROC: 30243N1 Transfusion of Nonautologous Red Blood Cells into Central Vein, Percutaneous Approach (ICD-10-PCS; 2018-07-21)
PROC: 0DB98ZX Excision of Duodenum, Via Natural or Artificial Opening Endoscopic, Diagnostic (ICD-10-PCS; 2018-07-22)
PROC: 5A1D70Z Performance of Urinary Filtration, Intermittent, Less than 6 Hours Per Day (ICD-10-PCS; 2018-07-23)
PROC: 5A1D70Z Performance of Urinary Filtration, Intermittent, Less than 6 Hours Per Day (ICD-10-PCS; 2018-07-25)
DX: K92.2 Gastrointestinal hemorrhage, unspecified (principal); N18.6 End stage renal disease; D62 Acute posthemorrhagic anemia; K76.6 Portal hypertension; I13.2 Hypertensive heart and chronic kidney disease with heart failure and with stage 5 chronic kidney disease, or end stage renal disease; I50.22 Chronic systolic (congestive) heart failure; E87.2 Acidosis; E11.22 Type 2 diabetes mellitus with diabetic chronic kidney disease; I85.10 Secondary esophageal varices without bleeding; E11.65 Type 2 diabetes mellitus with hyperglycemia; Z79.4 Long term (current) use of insulin; E87.5 Hyperkalemia; R41.82 Altered mental status, unspecified; D69.59 Other secondary thrombocytopenia; K74.60 Unspecified cirrhosis of liver; B19.20 Unspecified viral hepatitis C without hepatic coma; Z99.2 Dependence on renal dialysis; K31.84 Gastroparesis
CPT/HCPCS: 36415; 36556; 43239; 70450; 71045; 74176; 74470; 76937; 78278; 80048; 80053; 80061; 81001; 82150; 82270; 82550; 82553; 82607; 82728; 82746; 82948; 83540; 83690; 83735; 84443; 84466; 84484; 85007; 85025; 85027; 85045; 85610; 85730; 86704; 86706; 86850; 86900; 86920; 87340; 88305; 90962; 93005; 93306; 96366; 96372; 96374; 99285; A9512; C1769; J1160; J1644; J2001; J2250; J2270; J2405; J7030; J7040; J7050; J7060; P9016

== ENCOUNTER 2022-05-05 06:43 | Inpatient (IN) | payer MEDICARE, OTHER ==
[~2022-05-05] VITALS: Ht 175.3 cm; Wt 64.9 kg
[2022-05-05] VITALS (39 sets, daily range): BP systolic 84–159; BP diastolic 47–80
[~2022-05-05 06:43] MED LIST changes: +FUROSEMIDE80 MG PO; +LOSARTAN POTASS25 MG PO; +METOLAZONE2.5 MG PO; +METOPROLOL TAR100 MG PO; +RENAGEL800 MG PO; +VERAPAMIL HCL360 MG PO
[2022-05-05 07:33] LABS: BASOPHILS % 0.5 % (0.0-1.0); EOSINOPHILS % 1.1 % (0.0-6.0); HEMATOCRIT 30.9 % (38.2-49.6); HEMOGLOBIN 9.8 g/dL (14.0-18.0); LYMPHOCYTES # (AUTO) 0.3 (1.0-3.2); LYMPHOCYTES % 8.7 % (18.0-39.1); MEAN CORPUSCULAR HEMOGLOBIN 28.5 pg (28-32); MEAN CORPUSCULAR HGB CONC 31.7 g/dL (31-35); MEAN CORPUSCULAR VOLUME 89.8 fL (81-99); MONOCYTES # (AUTO) 0.3 (0.2-0.8); MONOCYTES % 8.2 % (4.4-11.3); NEUTROPHILS % 81.2 % (38.7-80.0); PLATELET COUNT 97 x10e3/uL (140-360); RED BLOOD COUNT 3.44 x10e6/uL (4.3-5.7); RED CELL DISTRIBUTION WIDTH 17.2 % (11.7-14.4)
[2022-05-05 08:02] LABS: INR 1.28; PROTHROMBIN TIME 17.1 seconds (11.9-14.5)
[2022-05-05 08:03] LABS: PARTIAL THROMBOPLASTIN TIME 40.1 seconds (23.8-35.5)
[2022-05-05 08:04] LABS: ALBUMIN 2.8 g/dL (3.5-5.0); ALBUMIN/GLOBULIN RATIO 0.5 (0.8-2.0); ANION GAP 24.2 mmol/L (8-16); CALCIUM 7.9 mg/dL (8.4-10.2); CREATININE, SERUM 9.31 mg/dL (0.72-1.25); MAGNESIUM 3.9 MG/DL (1.3-2.1)
[2022-05-05] MEDS ORDERED: XIFAXAN550 MG PO (08:07)
[2022-05-05] MEDS ORDERED: METHOCARBAMOL750 MG PO (08:08)
[2022-05-05] MEDS ORDERED: REVATIO20 MG PO (08:09)
[2022-05-05] MEDS ORDERED: TERBINAFINE HC250 MG PO (08:09)
[2022-05-05 08:10] LABS: CREATINE KINASE MB 13.3 ng/mL (0-5.0)
[2022-05-05] MEDS ORDERED: OMEPRAZOLE40 MG PO (08:11)
[2022-05-05 08:13] LABS: POTASSIUM 6.2 mmol/L (3.5-5.1)
[2022-05-05] MEDS ORDERED: SODIUM BICARBONATE 8.4% INJ 50 ML SYR IV STA (08:13)
[2022-05-05] MEDS ORDERED: DEXTROSE 50% SYRINGE 50 ML IV STA (08:13)
[2022-05-05] MEDS ORDERED: DIGOXIN125 MCG PO (08:14)
[2022-05-05] MEDS ORDERED: SERTRALINE HCL100 MG PO (08:15)
[2022-05-05] MEDS ORDERED: INSULIN REGULAR, HUMAN 100 UNIT/1 ML IV ONE (08:15)
[2022-05-05] MEDS ORDERED: CALCIUM GLUC 1 G/50 ML NACL 50 ML IV ONE (08:15)
[2022-05-05] MEDS ORDERED: SUCRALFATE1 GM PO (08:16)
[2022-05-05] MEDS ORDERED: MIDODRINE HCL5 MG PO (08:18)
[2022-05-05 08:47] LABS: SALICYLATE < 5.0 mg/dL (0-30)
[2022-05-05] MEDS ORDERED: LACTULOSE SYRUP 20 GM/30 ML UDC PO ONE (09:00)
[2022-05-05] MEDS ORDERED: LACTULOSE SYRUP 20 GM/30 ML UDC RC SCH (10:00)
[2022-05-05] MEDS ORDERED: VECURONIUM BROMIDE FOR INJ 20 MG VIAL ONE (12:28)
[2022-05-05] MEDS ORDERED: ETOMIDATE 2 MG/ML 10 ML INJ IV ONE (12:28)
[2022-05-05] MEDS ORDERED: MIDAZOLAM HCL 2 MG/2 ML VIAL ONE (12:28)
[2022-05-05] MEDS ORDERED: WATER STERILE 10 ML VIAL ONE (12:28)
[2022-05-05] MEDS ORDERED: SODIUM CHLORIDE 0.9% 1000ML 1,000 ML ONE (12:34)
[2022-05-05] MEDS ORDERED: SODIUM CHLORIDE 0.9% 1000ML 2,000 ML IV PRN (12:45)
[2022-05-05 15:43] LABS: ABG HCO3 28 mmol/L (22-26); ABG PCO2 27 mmHg (35-45); ABG PH 7.62 (7.35-7.45); ABG PO2 58 mmHg (80-105); ABG TCO2 29
[2022-05-05] MEDS ORDERED: Vancomycin IV 1 GM in SODIUM CHLORIDE 0.9% 250ML 250 ML IV ONE (15:45)
[2022-05-05] MEDS ORDERED: ONDANSETRON HCL INJ 2MG/ML 2ML 2 MG/ML VIAL IV PRN (16:00)
[2022-05-05 16:42] LABS: CREATINE KINASE MB 11.7 ng/mL (0-5.0)
[2022-05-05 16:58] LABS: ABG HCO3 33 mmol/L (22-26); ABG PCO2 55 mmHg (35-45); ABG PH 7.39 (7.35-7.45); ABG PO2 191 mmHg (80-105); ABG TCO2 35
[2022-05-05] MEDS: RIFAXIMIN 550 MG TABLET PO SCH (17:00)
[2022-05-05] MEDS: LACTULOSE SYRUP 20 GM/30 ML UDC PO SCH (17:01)
[2022-05-05] MEDS: DEXMEDETOMIDINE 400MCG/NS100ML 100 ML IV PRN (19:36)
[2022-05-05] MEDS ORDERED: LACTULOSE SYRUP 20 GM/30 ML UDC RC ONE (22:15)
[2022-05-06] VITALS (65 sets, daily range): BP systolic 75–150; BP diastolic 38–86
[2022-05-06 02:03] LABS: CREATINE KINASE MB 7.5 ng/mL (0-5.0)
[2022-05-06] MEDS: LACTULOSE SYRUP 20 GM/30 ML UDC PO SCH ×5 (02:09→17:03)
[2022-05-06 06:39] LABS: BASOPHILS % 0.1 % (0.0-1.0); HEMATOCRIT 29.2 % (38.2-49.6); HEMOGLOBIN 9.4 g/dL (14.0-18.0); LYMPHOCYTES # (AUTO) 0.4 (1.0-3.2); LYMPHOCYTES % 3.4 % (18.0-39.1); MEAN CORPUSCULAR HEMOGLOBIN 28.9 pg (28-32); MEAN CORPUSCULAR HGB CONC 32.2 g/dL (31-35); MEAN CORPUSCULAR VOLUME 89.8 fL (81-99); MONOCYTES # (AUTO) 0.7 (0.2-0.8); MONOCYTES % 6.7 % (4.4-11.3); NEUTROPHILS # (AUTO) 9.8 (2.1-6.9); NEUTROPHILS % 89.3 % (38.7-80.0); PLATELET COUNT 88 x10e3/uL (140-360); RED BLOOD COUNT 3.25 x10e6/uL (4.3-5.7); RED CELL DISTRIBUTION WIDTH 17.3 % (11.7-14.4)
[2022-05-06 06:56] LABS: ALBUMIN 2.5 g/dL (3.5-5.0); ALBUMIN/GLOBULIN RATIO 0.5 (0.8-2.0); ANION GAP 23.9 mmol/L (8-16); CALCIUM 8.2 mg/dL (8.4-10.2); CREATININE, SERUM 6.38 mg/dL (0.72-1.25); POTASSIUM 4.9 mmol/L (3.5-5.1)
[2022-05-06] MEDS: RIFAXIMIN 550 MG TABLET PO SCH ×2 (09:25→17:02)
[2022-05-06] MEDS ORDERED: IBUPROFEN 100 MG/5 ML SUSP PO ONE (10:00)
[2022-05-06 17:47] LABS: CREATINE KINASE MB 3.2 ng/mL (0-5.0)
[2022-05-06] MEDS: DEXMEDETOMIDINE 400MCG/NS100ML 100 ML IV PRN (18:59)
[2022-05-06] MEDS: VASOPRESSIN 60 UNIT in DEXTROSE 5% 50ML 57 ML IV PRN (23:45)
[2022-05-07] VITALS (85 sets, daily range): BP systolic 60–135; BP diastolic 42–94
[2022-05-07] MEDS: DEXMEDETOMIDINE 400MCG/NS100ML 100 ML IV PRN (03:54)
[2022-05-07 07:40] LABS: HEMATOCRIT 23.9 % (38.2-49.6); HEMOGLOBIN 7.3 g/dL (14.0-18.0); LYMPHOCYTES # (AUTO) 0.2 (1.0-3.2); LYMPHOCYTES % 5.3 % (18.0-39.1); MEAN CORPUSCULAR HEMOGLOBIN 28.5 pg (28-32); MEAN CORPUSCULAR HGB CONC 30.5 g/dL (31-35); MEAN CORPUSCULAR VOLUME 93.4 fL (81-99); MONOCYTES # (AUTO) 0.4 (0.2-0.8); MONOCYTES % 9.1 % (4.4-11.3); NEUTROPHILS # (AUTO) 3.4 (2.1-6.9); NEUTROPHILS % 85.3 % (38.7-80.0); RED BLOOD COUNT 2.56 x10e6/uL (4.3-5.7); RED CELL DISTRIBUTION WIDTH 17.2 % (11.7-14.4)
[2022-05-07 07:42] LABS: PLATELET COUNT 43 x10e3/uL (140-360)
[2022-05-07 07:55] LABS: ALBUMIN 2.1 g/dL (3.5-5.0); ALBUMIN/GLOBULIN RATIO 0.5 (0.8-2.0); ANION GAP 25.4 mmol/L (8-16); CALCIUM 7.9 mg/dL (8.4-10.2); CREATININE, SERUM 8.26 mg/dL (0.72-1.25); POTASSIUM 5.4 mmol/L (3.5-5.1)
[2022-05-07] MEDS: RIFAXIMIN 550 MG TABLET PO SCH ×2 (09:17→17:00)
[2022-05-07] MEDS: FAMOTIDINE 20 MG/2 ML VIAL IV SCH (09:17)
[2022-05-07] MEDS: LACTULOSE SYRUP 20 GM/30 ML UDC PO SCH ×2 (09:17→17:00)
[2022-05-07 09:40] LABS: ABG HCO3 25 mmol/L (22-26); ABG PCO2 36 mmHg (35-45); ABG PH 7.45 (7.35-7.45); ABG PO2 47 mmHg (80-105); ABG TCO2 26
[2022-05-07] MEDS ORDERED: DEXTROSE 50% SYRINGE 50 ML IV PRN (11:15)
[2022-05-07] MEDS ORDERED: SODIUM CHLORIDE 0.9% 250ML 250 ML IV ONE (11:15)
[2022-05-07] MEDS ORDERED: ALBUMIN 5% 250ML 500 ML IV ONE (11:15)
[2022-05-07] MEDS: INSULIN REGULAR, HUMAN 100 UNIT/1 ML SQ SCH ×3 (12:07→22:08)
[2022-05-07] MEDS: VASOPRESSIN 60 UNIT in DEXTROSE 5% 50ML 57 ML IV PRN (13:21)
[2022-05-07] MEDS: Morphine 2mg Syringe 2 MG/ML SYR IV PRN ×2 (14:15→19:59)
[2022-05-08] VITALS (86 sets, daily range): BP systolic 61–134; BP diastolic 31–95
[2022-05-08] MEDS: Morphine 2mg Syringe 2 MG/ML SYR IV PRN ×5 (00:16→23:34)
[2022-05-08 06:54] LABS: HEMATOCRIT 23.6 % (38.2-49.6); HEMOGLOBIN 7.3 g/dL (14.0-18.0); LYMPHOCYTES # (AUTO) 0.2 (1.0-3.2); LYMPHOCYTES % 3.6 % (18.0-39.1); MEAN CORPUSCULAR HEMOGLOBIN 28.3 pg (28-32); MEAN CORPUSCULAR HGB CONC 30.9 g/dL (31-35); MEAN CORPUSCULAR VOLUME 91.5 fL (81-99); MONOCYTES # (AUTO) 0.3 (0.2-0.8); MONOCYTES % 7.2 % (4.4-11.3); NEUTROPHILS % 88.8 % (38.7-80.0); RED BLOOD COUNT 2.58 x10e6/uL (4.3-5.7); RED CELL DISTRIBUTION WIDTH 16.4 % (11.7-14.4)
[2022-05-08 07:02] LABS: PLATELET COUNT 43 x10e3/uL (140-360)
[2022-05-08 07:13] LABS: ALBUMIN 2.4 g/dL (3.5-5.0); ALBUMIN/GLOBULIN RATIO 0.6 (0.8-2.0); ANION GAP 19.1 mmol/L (8-16); CALCIUM 7.6 mg/dL (8.4-10.2); CREATININE, SERUM 5.01 mg/dL (0.72-1.25); POTASSIUM 4.1 mmol/L (3.5-5.1)
[2022-05-08] MEDS: INSULIN REGULAR, HUMAN 100 UNIT/1 ML SQ SCH ×4 (08:21→21:00)
[2022-05-08] MEDS: LACTULOSE SYRUP 20 GM/30 ML UDC PO SCH ×2 (08:56→17:26)
[2022-05-08] MEDS: FAMOTIDINE 20 MG/2 ML VIAL IV SCH (08:56)
[2022-05-08] MEDS: RIFAXIMIN 550 MG TABLET PO SCH ×2 (09:00→17:00)
[2022-05-08] MEDS: VASOPRESSIN 60 UNIT in DEXTROSE 5% 50ML 57 ML IV PRN (09:09)
[2022-05-09] VITALS (33 sets, daily range): BP systolic 83–123; BP diastolic 50–68
[2022-05-09] MEDS ORDERED: RIFAXIMIN 550 MG TABLET PO ONE (01:00)
[2022-05-09 06:46] LABS: EOSINOPHILS # (AUTO) 0.1 (0.0-0.4); EOSINOPHILS % 2.4 % (0.0-6.0); HEMATOCRIT 26.6 % (38.2-49.6); HEMOGLOBIN 8.2 g/dL (14.0-18.0); LYMPHOCYTES # (AUTO) 0.2 (1.0-3.2); LYMPHOCYTES % 5.3 % (18.0-39.1); MEAN CORPUSCULAR HEMOGLOBIN 28.6 pg (28-32); MEAN CORPUSCULAR HGB CONC 30.8 g/dL (31-35); MEAN CORPUSCULAR VOLUME 92.7 fL (81-99); MONOCYTES # (AUTO) 0.4 (0.2-0.8); NEUTROPHILS # (AUTO) 3.1 (2.1-6.9); PLATELET COUNT 50 x10e3/uL (140-360); RED BLOOD COUNT 2.87 x10e6/uL (4.3-5.7); RED CELL DISTRIBUTION WIDTH 16.1 % (11.7-14.4)
[2022-05-09 07:11] LABS: ALBUMIN 2.4 g/dL (3.5-5.0); ALBUMIN/GLOBULIN RATIO 0.5 (0.8-2.0); ANION GAP 21.9 mmol/L (8-16); CALCIUM 7.3 mg/dL (8.4-10.2); CREATININE, SERUM 5.91 mg/dL (0.72-1.25); POTASSIUM 3.9 mmol/L (3.5-5.1)
[2022-05-09] MEDS: INSULIN REGULAR, HUMAN 100 UNIT/1 ML SQ SCH ×4 (07:30→21:00)
[2022-05-09] MEDS: LACTULOSE SYRUP 20 GM/30 ML UDC PO SCH ×2 (08:53→17:14)
[2022-05-09] MEDS: FAMOTIDINE 20 MG/2 ML VIAL IV SCH (08:53)
[2022-05-09] MEDS: RIFAXIMIN 550 MG TABLET PO SCH ×2 (08:53→17:13)
[2022-05-09] MEDS: Morphine 2mg Syringe 2 MG/ML SYR IV PRN (09:08)
[2022-05-09] MEDS ORDERED: ALBUMIN 25% 12.5GM 0.25 GM/ML BTL IV PRN (19:15)
[2022-05-09] MEDS ORDERED: ALBUMIN 25% 12.5GM 50ML 150 ML IV ONE (19:18)
[2022-05-10] VITALS (11 sets, daily range): BP systolic 94–116; BP diastolic 55–75
[2022-05-10] MEDS: INSULIN REGULAR, HUMAN 100 UNIT/1 ML SQ SCH ×4 (07:30→20:43)
[2022-05-10] MEDS: LACTULOSE SYRUP 20 GM/30 ML UDC PO SCH ×2 (08:11→17:04)
[2022-05-10] MEDS: RIFAXIMIN 550 MG TABLET PO SCH ×2 (08:12→17:04)
[2022-05-10] MEDS: FAMOTIDINE 20 MG/2 ML VIAL IV SCH (08:12)
[2022-05-10] MEDS: Morphine 2mg Syringe 2 MG/ML SYR IV PRN ×2 (09:37→20:44)
[2022-05-10] MEDS ORDERED: SEVELAMER CARBONATE 800 MG TAB PO SCH (17:30)
[2022-05-10] MEDS: METHOCARBAMOL 500 MG TAB PO SCH (17:43)
[2022-05-10] MEDS: SEVELAMER CARBONATE 800 MG TAB PO SCH (17:48)
[2022-05-11] VITALS (8 sets, daily range): BP systolic 95–132; BP diastolic 54–62
[2022-05-11] MEDS: INSULIN REGULAR, HUMAN 100 UNIT/1 ML SQ SCH ×4 (07:24→21:53)
[2022-05-11] MEDS: SEVELAMER CARBONATE 800 MG TAB PO SCH ×3 (08:30→17:03)
[2022-05-11] MEDS: FAMOTIDINE 20 MG/2 ML VIAL IV SCH (08:30)
[2022-05-11] MEDS: LACTULOSE SYRUP 20 GM/30 ML UDC PO SCH ×2 (08:30→15:24)
[2022-05-11] MEDS: RIFAXIMIN 550 MG TABLET PO SCH ×2 (08:30→17:03)
[2022-05-11] MEDS: METHOCARBAMOL 500 MG TAB PO SCH (08:33)
[2022-05-11] MEDS ORDERED: SODIUM CHLORIDE 0.9% 500ML 500 ML ONE (08:51)
[2022-05-11] MEDS: Morphine 2mg Syringe 2 MG/ML SYR IV PRN ×2 (10:21→19:55)
[2022-05-11] MEDS ORDERED: ONDANSETRON HCL 4 MG ORAL DISINTEGRATING TAB PO PRN (13:30)
[2022-05-11] MEDS: SUCRALFATE 1 GM TAB PO SCH (15:24)
[2022-05-11] MEDS: CALCIUM CARBONATE 500 MG CHEWABLE TABS PO PRN (15:24)
[2022-05-12] VITALS (7 sets, daily range): BP systolic 86–130; BP diastolic 44–66
[2022-05-12] MEDS: LACTULOSE SYRUP 20 GM/30 ML UDC PO SCH ×4 (00:39→17:39)
[2022-05-12] MEDS: Morphine 2mg Syringe 2 MG/ML SYR IV PRN ×4 (00:44→19:51)
[2022-05-12] MEDS: INSULIN REGULAR, HUMAN 100 UNIT/1 ML SQ SCH ×4 (08:01→21:24)
[2022-05-12] MEDS: FAMOTIDINE 20 MG TAB PO SCH (08:06)
[2022-05-12] MEDS: METHOCARBAMOL 500 MG TAB PO SCH (08:06)
[2022-05-12] MEDS: SUCRALFATE 1 GM TAB PO SCH ×3 (08:06→17:39)
[2022-05-12] MEDS: SEVELAMER CARBONATE 800 MG TAB PO SCH ×3 (08:06→17:39)
[2022-05-12] MEDS: RIFAXIMIN 550 MG TABLET PO SCH ×2 (08:06→17:39)
[2022-05-12] MEDS ORDERED: ALBUMIN 25% 12.5GM 50ML 150 ML IV ONE (12:00)
[2022-05-12] MEDS ORDERED: ALBUMIN 25% 12.5GM 50ML 50 ML IV ONE (12:16)
[2022-05-13] VITALS (8 sets, daily range): BP systolic 85–107; BP diastolic 48–62
[2022-05-13] MEDS: LACTULOSE SYRUP 20 GM/30 ML UDC PO SCH ×4 (00:02→16:43)
[2022-05-13] MEDS ORDERED: SODIUM CHLORIDE 0.9% 500ML 500 ML IV ONE (01:30)
[2022-05-13] MEDS: SUCRALFATE 1 GM TAB PO SCH ×3 (08:35→16:42)
[2022-05-13] MEDS: FAMOTIDINE 20 MG TAB PO SCH (08:35)
[2022-05-13] MEDS: METHOCARBAMOL 500 MG TAB PO SCH (08:35)
[2022-05-13] MEDS: RIFAXIMIN 550 MG TABLET PO SCH ×3 (08:35→17:00)
[2022-05-13] MEDS: SEVELAMER CARBONATE 800 MG TAB PO SCH ×3 (08:35→16:43)
[2022-05-13] MEDS: INSULIN REGULAR, HUMAN 100 UNIT/1 ML SQ SCH ×4 (08:37→21:03)
[2022-05-13] MEDS: Morphine 2mg Syringe 2 MG/ML SYR IV PRN ×3 (08:52→21:46)
[2022-05-13 11:32] LABS: BASOPHILS % 0.3 % (0.0-1.0); EOSINOPHILS # (AUTO) 0.1 (0.0-0.4); EOSINOPHILS % 3.7 % (0.0-6.0); HEMATOCRIT 26.7 % (38.2-49.6); HEMOGLOBIN 7.9 g/dL (14.0-18.0); LYMPHOCYTES # (AUTO) 0.2 (1.0-3.2); LYMPHOCYTES % 6.2 % (18.0-39.1); MEAN CORPUSCULAR HEMOGLOBIN 28.2 pg (28-32); MEAN CORPUSCULAR HGB CONC 29.6 g/dL (31-35); MEAN CORPUSCULAR VOLUME 95.4 fL (81-99); MONOCYTES # (AUTO) 0.7 (0.2-0.8); MONOCYTES % 21.8 % (4.4-11.3); NEUTROPHILS # (AUTO) 2.2 (2.1-6.9); NEUTROPHILS % 67.4 % (38.7-80.0); RED CELL DISTRIBUTION WIDTH 16.6 % (11.7-14.4)
[2022-05-13 11:43] LABS: PLATELET COUNT 49 x10e3/uL (140-360)
[2022-05-13 13:08] LABS: ALBUMIN 2.5 g/dL (3.5-5.0); ALBUMIN/GLOBULIN RATIO 0.7 (0.8-2.0); CALCIUM 7.2 mg/dL (8.4-10.2); CREATININE, SERUM 4.74 mg/dL (0.72-1.25)
[2022-05-13 13:13] LABS: EOSINOPHILS % (MANUAL) 6 % (0-7); LYMPHOCYTES % (MANUAL) 6 % (19-48); MONOCYTES % (MANUAL) 18 % (3.4-9.0); NEUTROPHILS % (MANUAL) 70 % (40-74)
[2022-05-13 13:14] LABS: PLATELET ESTIMATE MARKEDLY DECREASED; PLATELET MORPHOLOGY COMMENT NORMAL; RBC MORPHOLOGY COMMENT NORMAL
[2022-05-14] VITALS (8 sets, daily range): BP systolic 111–134; BP diastolic 48–80
[2022-05-14] MEDS: LACTULOSE SYRUP 20 GM/30 ML UDC PO SCH ×5 (00:40→23:55)
[2022-05-14] MEDS: Morphine 2mg Syringe 2 MG/ML SYR IV PRN ×2 (02:49→08:06)
[2022-05-14] MEDS: SUCRALFATE 1 GM TAB PO SCH ×3 (08:04→17:43)
[2022-05-14] MEDS: FAMOTIDINE 20 MG TAB PO SCH (08:05)
[2022-05-14] MEDS: SEVELAMER CARBONATE 800 MG TAB PO SCH ×3 (08:05→17:44)
[2022-05-14] MEDS: METHOCARBAMOL 500 MG TAB PO SCH (08:06)
[2022-05-14] MEDS: RIFAXIMIN 550 MG TABLET PO SCH ×2 (08:06→17:43)
[2022-05-14] MEDS: INSULIN REGULAR, HUMAN 100 UNIT/1 ML SQ SCH ×4 (08:23→22:02)
[2022-05-14] MEDS ORDERED: ALBUMIN 25% 12.5GM 0.25 GM/ML BTL IV PRN (15:15)
[2022-05-14] MEDS: TRAMADOL HCL 50 MG TAB PO PRN (23:55)
[2022-05-15] VITALS (9 sets, daily range): BP systolic 97–146; BP diastolic 53–71
[2022-05-15] MEDS: TRAMADOL HCL 50 MG TAB PO PRN ×2 (06:26→22:21)
[2022-05-15] MEDS: LACTULOSE SYRUP 20 GM/30 ML UDC PO SCH ×3 (06:26→16:42)
[2022-05-15] MEDS: INSULIN REGULAR, HUMAN 100 UNIT/1 ML SQ SCH ×4 (08:05→21:48)
[2022-05-15] MEDS: SEVELAMER CARBONATE 800 MG TAB PO SCH ×3 (08:08→16:41)
[2022-05-15] MEDS: METHOCARBAMOL 500 MG TAB PO SCH (08:08)
[2022-05-15] MEDS: FAMOTIDINE 20 MG TAB PO SCH (08:09)
[2022-05-15] MEDS: SUCRALFATE 1 GM TAB PO SCH ×3 (08:09→16:41)
[2022-05-15] MEDS: RIFAXIMIN 550 MG TABLET PO SCH (08:09)
[2022-05-15] MEDS ORDERED: FAMOTIDINE20 MG PO (08:17)
[2022-05-15] MEDS ORDERED: LACTULOSE20 GM/30 M PO (08:19)
[2022-05-15] MEDS ORDERED: SODIUM CHLORIDE 0.9% 500ML 500 ML ONE (08:29)
[2022-05-15] MEDS: MIDODRINE HCL 5 MG TABLET PO SCH ×3 (08:45→16:41)
[2022-05-16] VITALS (8 sets, daily range): BP systolic 91–120; BP diastolic 42–86
[2022-05-16] MEDS: LACTULOSE SYRUP 20 GM/30 ML UDC PO SCH ×6 (06:03→21:23)
[2022-05-16] MEDS: TRAMADOL HCL 50 MG TAB PO PRN ×4 (06:03→22:24)
[2022-05-16] MEDS: INSULIN REGULAR, HUMAN 100 UNIT/1 ML SQ SCH ×4 (08:27→21:30)
[2022-05-16] MEDS: SEVELAMER CARBONATE 800 MG TAB PO SCH ×3 (08:30→16:32)
[2022-05-16] MEDS: SUCRALFATE 1 GM TAB PO SCH ×3 (08:31→16:32)
[2022-05-16] MEDS: FAMOTIDINE 20 MG TAB PO SCH (08:31)
[2022-05-16] MEDS: METHOCARBAMOL 500 MG TAB PO SCH (08:31)
[2022-05-16] MEDS: MIDODRINE HCL 5 MG TABLET PO SCH ×3 (08:31→16:32)
[2022-05-16 10:41] LABS: BASOPHILS % 0.5 % (0.0-1.0); EOSINOPHILS # (AUTO) 0.1 (0.0-0.4); EOSINOPHILS % 2.9 % (0.0-6.0); HEMATOCRIT 26.8 % (38.2-49.6); LYMPHOCYTES # (AUTO) 0.4 (1.0-3.2); LYMPHOCYTES % 9.1 % (18.0-39.1); MEAN CORPUSCULAR HEMOGLOBIN 28.5 pg (28-32); MEAN CORPUSCULAR HGB CONC 29.9 g/dL (31-35); MEAN CORPUSCULAR VOLUME 95.4 fL (81-99); MONOCYTES # (AUTO) 0.8 (0.2-0.8); MONOCYTES % 20.3 % (4.4-11.3); NEUTROPHILS # (AUTO) 2.6 (2.1-6.9); NEUTROPHILS % 66.7 % (38.7-80.0); PLATELET COUNT 62 x10e3/uL (140-360); RED BLOOD COUNT 2.81 x10e6/uL (4.3-5.7); RED CELL DISTRIBUTION WIDTH 17.2 % (11.7-14.4)
[2022-05-16 11:11] LABS: ANION GAP 14.4 mmol/L (8-16); CALCIUM 7.4 mg/dL (8.4-10.2); CREATININE, SERUM 5.8 mg/dL (0.72-1.25); POTASSIUM 4.4 mmol/L (3.5-5.1)
[2022-05-17] VITALS (8 sets, daily range): BP systolic 112–120; BP diastolic 58–93
[2022-05-17] MEDS: LACTULOSE SYRUP 20 GM/30 ML UDC PO SCH ×6 (00:47→20:22)
[2022-05-17 06:37] LABS: BASOPHILS % 0.2 % (0.0-1.0); EOSINOPHILS # (AUTO) 0.1 (0.0-0.4); EOSINOPHILS % 1.8 % (0.0-6.0); HEMATOCRIT 27.1 % (38.2-49.6); HEMOGLOBIN 8.2 g/dL (14.0-18.0); LYMPHOCYTES # (AUTO) 0.3 (1.0-3.2); LYMPHOCYTES % 7.5 % (18.0-39.1); MEAN CORPUSCULAR HGB CONC 30.3 g/dL (31-35); MEAN CORPUSCULAR VOLUME 95.8 fL (81-99); MONOCYTES # (AUTO) 0.9 (0.2-0.8); MONOCYTES % 21.2 % (4.4-11.3); NEUTROPHILS % 69.1 % (38.7-80.0); PLATELET COUNT 65 x10e3/uL (140-360); RED BLOOD COUNT 2.83 x10e6/uL (4.3-5.7); RED CELL DISTRIBUTION WIDTH 17.2 % (11.7-14.4)
[2022-05-17 06:53] LABS: CALCIUM 7.7 mg/dL (8.4-10.2); CREATININE, SERUM 4.86 mg/dL (0.72-1.25)
[2022-05-17] MEDS: SUCRALFATE 1 GM TAB PO SCH ×3 (07:30→16:31)
[2022-05-17 08:11] LABS: BAND NEUTROPHILS % (MANUAL) 3 %; EOSINOPHILS % (MANUAL) 2 % (0-7); LYMPHOCYTES % (MANUAL) 3 % (19-48); MONOCYTES % (MANUAL) 20 % (3.4-9.0); NEUTROPHILS % (MANUAL) 71 % (40-74)
[2022-05-17 08:12] LABS: PLATELET ESTIMATE MODERATELY DECREASED; PLATELET MORPHOLOGY COMMENT FEW GIANT; RBC MORPHOLOGY COMMENT NORMAL
[2022-05-17] MEDS: SEVELAMER CARBONATE 800 MG TAB PO SCH ×3 (08:15→16:31)
[2022-05-17] MEDS: METHOCARBAMOL 500 MG TAB PO SCH (08:15)
[2022-05-17] MEDS: MIDODRINE HCL 5 MG TABLET PO SCH ×3 (08:15→16:31)
[2022-05-17] MEDS: FAMOTIDINE 20 MG TAB PO SCH (08:15)
[2022-05-17] MEDS: TRAMADOL HCL 50 MG TAB PO PRN ×3 (10:15→18:43)
[2022-05-17] MEDS: INSULIN REGULAR, HUMAN 100 UNIT/1 ML SQ SCH ×4 (10:35→20:22)
[2022-05-17] MEDS: CYCLOBENZAPRINE HCL 10 MG TAB PO SCH ×2 (16:24→20:44)
[2022-05-18] VITALS (9 sets, daily range): BP systolic 96–118; BP diastolic 49–67
[2022-05-18] MEDS: CALCIUM CARBONATE 500 MG CHEWABLE TABS PO PRN (00:05)
[2022-05-18] MEDS: LACTULOSE SYRUP 20 GM/30 ML UDC PO SCH ×6 (02:00→20:56)
[2022-05-18] MEDS: TRAMADOL HCL 50 MG TAB PO PRN ×4 (02:23→21:24)
[2022-05-18] MEDS: INSULIN REGULAR, HUMAN 100 UNIT/1 ML SQ SCH ×5 (07:30→21:44)
[2022-05-18] MEDS: SEVELAMER CARBONATE 800 MG TAB PO SCH ×3 (09:17→16:35)
[2022-05-18] MEDS: MIDODRINE HCL 5 MG TABLET PO SCH ×3 (09:17→16:35)
[2022-05-18] MEDS: SUCRALFATE 1 GM TAB PO SCH ×3 (09:17→16:35)
[2022-05-18] MEDS: METHOCARBAMOL 500 MG TAB PO SCH (09:18)
[2022-05-18] MEDS: FAMOTIDINE 20 MG TAB PO SCH (09:18)
[2022-05-18] MEDS: CYCLOBENZAPRINE HCL 10 MG TAB PO SCH ×3 (09:20→20:56)
[2022-05-18] MEDS: LIDOCAINE 4% PATCH TP SCH (12:03)
[2022-05-18] MEDS ORDERED: ALBUMIN 25% 12.5GM 50ML 100 ML IV ONE ×2 (15:09→15:42)
[2022-05-19] MEDS: LACTULOSE SYRUP 20 GM/30 ML UDC PO SCH ×3 (01:26→08:35)
[2022-05-19] MEDS: TRAMADOL HCL 50 MG TAB PO PRN ×3 (01:27→12:26)
[2022-05-19] MEDS: INSULIN REGULAR, HUMAN 100 UNIT/1 ML SQ SCH ×2 (07:30→12:27)
[2022-05-19 08:11] VITALS: BP 106/48
[2022-05-19] MEDS: SUCRALFATE 1 GM TAB PO SCH ×2 (08:33→12:25)
[2022-05-19] MEDS: MIDODRINE HCL 5 MG TABLET PO SCH ×2 (08:34→12:25)
[2022-05-19] MEDS: CYCLOBENZAPRINE HCL 10 MG TAB PO SCH (08:34)
[2022-05-19] MEDS: FAMOTIDINE 20 MG TAB PO SCH (08:34)
[2022-05-19] MEDS: SEVELAMER CARBONATE 800 MG TAB PO SCH ×2 (08:34→12:25)
[2022-05-19] MEDS: METHOCARBAMOL 500 MG TAB PO SCH (08:35)
[2022-05-19] MEDS: LIDOCAINE 4% PATCH TP SCH (08:35)
[2022-05-19 08:45] VITALS: BP 106/48
[2022-05-19 11:54] VITALS: BP 116/64
== END 2022-05-19 15:10 | disposition home health service (06) | DRG 871 ==
LOC: ER 06:51 → ERHOLD 09:04 → ICU 14:01 → MED/SURG3 05-10 23:47
PROVIDERS: ADMIT Internal Medicine; ATTEND Internal Medicine
PROC: 02HV33Z Insertion of Infusion Device into Superior Vena Cava, Percutaneous Approach (ICD-10-PCS; principal; 2022-05-05)
PROC: 5A1D70Z Performance of Urinary Filtration, Intermittent, Less than 6 Hours Per Day (ICD-10-PCS; 2022-05-05)
PROC: 5A1945Z Respiratory Ventilation, 24-96 Consecutive Hours (ICD-10-PCS; 2022-05-05)
PROC: 0BH17EZ Insertion of Endotracheal Airway into Trachea, Via Natural or Artificial Opening (ICD-10-PCS; 2022-05-05)
PROC: 3E043XZ Introduction of Vasopressor into Central Vein, Percutaneous Approach (ICD-10-PCS; 2022-05-05)
PROC: 30243N1 Transfusion of Nonautologous Red Blood Cells into Central Vein, Percutaneous Approach (ICD-10-PCS; 2022-05-07)
PROC: 0W9G3ZZ Drainage of Peritoneal Cavity, Percutaneous Approach (ICD-10-PCS; 2022-05-12)
PROC: 0W9G3ZZ Drainage of Peritoneal Cavity, Percutaneous Approach (ICD-10-PCS; 2022-05-18)
DX: A41.9 Sepsis, unspecified organism (principal); G93.41 Metabolic encephalopathy; N18.6 End stage renal disease; J69.0 Pneumonitis due to inhalation of food and vomit; J96.00 Acute respiratory failure, unspecified whether with hypoxia or hypercapnia; K72.00 Acute and subacute hepatic failure without coma; R57.9 Shock, unspecified; D61.818 Other pancytopenia; E87.2 Acidosis; I12.0 Hypertensive chronic kidney disease with stage 5 chronic kidney disease or end stage renal disease; K76.6 Portal hypertension; R18.8 Other ascites; S82.209A Unspecified fracture of shaft of unspecified tibia, initial encounter for closed fracture; E11.22 Type 2 diabetes mellitus with diabetic chronic kidney disease; K74.60 Unspecified cirrhosis of liver; R65.20 Severe sepsis without septic shock; B19.20 Unspecified viral hepatitis C without hepatic coma; K43.9 Ventral hernia without obstruction or gangrene; I48.91 Unspecified atrial fibrillation; E87.5 Hyperkalemia; M21.372 Foot drop, left foot; F17.200 Nicotine dependence, unspecified, uncomplicated; Z20.822 Contact with and (suspected) exposure to COVID-19; Z88.8 Allergy status to other drugs, medicaments and biological substances; Z99.2 Dependence on renal dialysis
CPT/HCPCS: 31500; 36415; 36600; 49083; 70450; 71045; 74018; 76705; 80048; 80053; 80162; 80320; 80329; 82140; 82550; 82553; 82805; 82948; 83605; 83690; 83735; 84484; 85025; 85610; 85730; 86706; 86850; 86900; 86920; 87040; 87340; 90962; 93005; 93306; 94003; 94799; 96372; 99251; 99284; C1729; J0692; J1817; J2250; J2270; J3370; J7030; J7040; J7050; J7799; P9016; P9045

== ENCOUNTER 2022-05-23 11:13 | Inpatient (IN) | payer MEDICARE, OTHER ==
[~2022-05-23] VITALS: Ht 175.3 cm; Wt 64.9 kg
[~2022-05-23 11:13] MED LIST changes: +FAMOTIDINE20 MG PO; +LACTULOSE20 GM/30 M PO; +METHOCARBAMOL750 MG PO; +MIDODRINE HCL5 MG PO; +REVATIO20 MG PO; +SERTRALINE HCL100 MG PO; +SUCRALFATE1 GM PO; +TERBINAFINE HC250 MG PO; +XIFAXAN550 MG PO
[2022-05-23 11:58] LABS: BASOPHILS % 0.3 % (0.0-1.0); EOSINOPHILS # (AUTO) 0.1 (0.0-0.4); EOSINOPHILS % 1.6 % (0.0-6.0); HEMATOCRIT 28.9 % (38.2-49.6); HEMOGLOBIN 8.7 g/dL (14.0-18.0); LYMPHOCYTES # (AUTO) 0.3 (1.0-3.2); LYMPHOCYTES % 7.8 % (18.0-39.1); MEAN CORPUSCULAR HEMOGLOBIN 28.9 pg (28-32); MEAN CORPUSCULAR HGB CONC 30.1 g/dL (31-35); MONOCYTES # (AUTO) 0.4 (0.2-0.8); MONOCYTES % 9.9 % (4.4-11.3); NEUTROPHILS # (AUTO) 3.1 (2.1-6.9); NEUTROPHILS % 80.1 % (38.7-80.0); PLATELET COUNT 73 x10e3/uL (140-360); RED BLOOD COUNT 3.01 x10e6/uL (4.3-5.7); RED CELL DISTRIBUTION WIDTH 19.2 % (11.7-14.4)
[2022-05-23 12:13] LABS: INR 1.22; PROTHROMBIN TIME 16.5 seconds (11.9-14.5)
[2022-05-23 12:14] LABS: ALBUMIN 2.4 g/dL (3.5-5.0); ALBUMIN/GLOBULIN RATIO 0.5 (0.8-2.0); ANION GAP 19.4 mmol/L (8-16); CALCIUM 7.7 mg/dL (8.4-10.2); CREATININE, SERUM 8.65 mg/dL (0.72-1.25); POTASSIUM 5.4 mmol/L (3.5-5.1)
[2022-05-23] MEDS ORDERED: ONDANSETRON HCL INJ 2MG/ML 2ML 2 MG/ML VIAL IV NR (12:45)
[2022-05-23] MEDS ORDERED: Morphine 4mg INJECTION 4 MG/ML INJ IV ONE (13:00)
[2022-05-23] MEDS: Morphine 4mg INJECTION 4 MG/ML INJ IV PRN ×2 (16:28→23:49)
[2022-05-23] MEDS: ONDANSETRON HCL INJ 2MG/ML 2ML 2 MG/ML VIAL IV PRN (16:28)
[2022-05-23 18:04] VITALS: BP 137/70
[2022-05-23 18:05] VITALS: BP 137/70
[2022-05-23 18:12] VITALS: BP 137/70
[2022-05-23 18:20] VITALS: BP 137/70
[2022-05-23] MEDS ORDERED: SODIUM CHLORIDE 0.9% 1000ML 2,000 ML ONE (18:53)
[2022-05-23 19:15] VITALS: BP 114/47
[2022-05-23 20:00] VITALS: BP 114/47
[2022-05-23] MEDS: MIDODRINE HCL 5 MG TABLET PO SCH (20:49)
[2022-05-24] VITALS (7 sets, daily range): BP systolic 97–114; BP diastolic 58–76
[2022-05-24] MEDS: Morphine 4mg INJECTION 4 MG/ML INJ IV PRN ×5 (03:51→22:06)
[2022-05-24 06:29] LABS: BASOPHILS % 1.1 % (0.0-1.0); EOSINOPHILS # (AUTO) 0.1 (0.0-0.4); EOSINOPHILS % 1.9 % (0.0-6.0); HEMATOCRIT 28.4 % (38.2-49.6); HEMOGLOBIN 8.7 g/dL (14.0-18.0); LYMPHOCYTES # (AUTO) 0.5 (1.0-3.2); LYMPHOCYTES % 12.6 % (18.0-39.1); MEAN CORPUSCULAR HEMOGLOBIN 29.1 pg (28-32); MEAN CORPUSCULAR HGB CONC 30.6 g/dL (31-35); MONOCYTES # (AUTO) 0.6 (0.2-0.8); MONOCYTES % 15.3 % (4.4-11.3); NEUTROPHILS # (AUTO) 2.5 (2.1-6.9); NEUTROPHILS % 68.8 % (38.7-80.0); PLATELET COUNT 83 x10e3/uL (140-360); RED BLOOD COUNT 2.99 x10e6/uL (4.3-5.7)
[2022-05-24 06:58] LABS: ALBUMIN 2.5 g/dL (3.5-5.0); ALBUMIN/GLOBULIN RATIO 0.5 (0.8-2.0); ANION GAP 14.4 mmol/L (8-16); CALCIUM 7.8 mg/dL (8.4-10.2); CREATININE, SERUM 6.01 mg/dL (0.72-1.25); POTASSIUM 4.4 mmol/L (3.5-5.1)
[2022-05-24 07:05] LABS: CREATINE KINASE MB 10.7 ng/mL (0-5.0)
[2022-05-24] MEDS: MIDODRINE HCL 5 MG TABLET PO SCH (08:02)
[2022-05-24] MEDS ORDERED: SEVELAMER CARBONATE 800 MG TAB PO SCH ×2 (09:00→15:00)
[2022-05-24] MEDS: LACTULOSE SYRUP 20 GM/30 ML UDC PO SCH ×5 (09:49→22:06)
[2022-05-24] MEDS ORDERED: TERBINAFINE HC250 MG PO (10:23)
[2022-05-24] MEDS ORDERED: SENNA PLUS TAB1 EACH PO (10:24)
[2022-05-24] MEDS ORDERED: BASAGLAR K100 UNIT/1 (10:25)
[2022-05-24] MEDS ORDERED: LACTULOSE SYRUP 20 GM/30 ML UDC PO SCH (12:00)
[2022-05-24] MEDS ORDERED: SODIUM CHLORIDE 0.9% 250ML 250 ML ONE (12:07)
[2022-05-24] MEDS: SEVELAMER CARBONATE 800 MG TAB PO SCH (16:58)
[2022-05-24] MEDS: ONDANSETRON HCL INJ 2MG/ML 2ML 2 MG/ML VIAL IV PRN (18:19)
[2022-05-25] VITALS (8 sets, daily range): BP systolic 87–118; BP diastolic 51–75
[2022-05-25] MEDS: Morphine 4mg INJECTION 4 MG/ML INJ IV PRN ×3 (02:08→18:28)
[2022-05-25] MEDS: LACTULOSE SYRUP 20 GM/30 ML UDC PO SCH ×7 (02:08→23:45)
[2022-05-25] MEDS ORDERED: Morphine 2mg Syringe 2 MG/ML SYR ONE (06:31)
[2022-05-25] MEDS ORDERED: Morphine 2mg Syringe 2 MG/ML SYR IV ONE (06:45)
[2022-05-25] MEDS: SEVELAMER CARBONATE 800 MG TAB PO SCH ×3 (07:30→15:56)
[2022-05-25] MEDS: INSULIN ASPART 70/30 100 UNITS/ML VIAL SC SCH ×3 (07:56→16:10)
[2022-05-25] MEDS: MIDODRINE HCL 5 MG TABLET PO SCH ×2 (09:00→11:05)
[2022-05-25] MEDS: DOCUSATE SODIUM 100 MG CAP PO SCH (16:10)
[2022-05-25] MEDS ORDERED: ALBUMIN 25% 12.5GM 50ML 200 ML IV ONE (16:32)
[2022-05-25] MEDS: SENNOSIDES 8.6 MG TAB PO SCH (20:42)
[2022-05-26] VITALS (9 sets, daily range): BP systolic 90–108; BP diastolic 36–62
[2022-05-26] MEDS: ONDANSETRON HCL 4 MG ORAL DISINTEGRATING TAB PO PRN
[2022-05-26] MEDS: Morphine 4mg INJECTION 4 MG/ML INJ IV PRN ×3 (00:50→10:02)
[2022-05-26] MEDS: LACTULOSE SYRUP 20 GM/30 ML UDC PO SCH ×6 (05:30→23:50)
[2022-05-26 08:43] LABS: BASOPHILS % 0.2 % (0.0-1.0); EOSINOPHILS # (AUTO) 0.1 (0.0-0.4); HEMATOCRIT 24.6 % (38.2-49.6); LYMPHOCYTES # (AUTO) 0.3 (1.0-3.2); LYMPHOCYTES % 5.7 % (18.0-39.1); MEAN CORPUSCULAR HEMOGLOBIN 29.3 pg (28-32); MEAN CORPUSCULAR HGB CONC 28.5 g/dL (31-35); MEAN CORPUSCULAR VOLUME 102.9 fL (81-99); MONOCYTES # (AUTO) 0.5 (0.2-0.8); MONOCYTES % 10.9 % (4.4-11.3); NEUTROPHILS % 81.6 % (38.7-80.0); PLATELET COUNT 83 x10e3/uL (140-360); RED BLOOD COUNT 2.39 x10e6/uL (4.3-5.7); RED CELL DISTRIBUTION WIDTH 18.5 % (11.7-14.4)
[2022-05-26 08:59] LABS: ALBUMIN 2.8 g/dL (3.5-5.0); ANION GAP 19.4 mmol/L (8-16); CALCIUM 7.6 mg/dL (8.4-10.2); CREATININE, SERUM 8.06 mg/dL (0.72-1.25); POTASSIUM 5.4 mmol/L (3.5-5.1)
[2022-05-26 09:00] LABS: ALBUMIN/GLOBULIN RATIO 0.7 (0.8-2.0)
[2022-05-26] MEDS: SENNOSIDES 8.6 MG TAB PO SCH ×2 (09:45→21:21)
[2022-05-26] MEDS: SEVELAMER CARBONATE 800 MG TAB PO SCH ×3 (09:46→17:08)
[2022-05-26] MEDS: DOCUSATE SODIUM 100 MG CAP PO SCH ×2 (09:47→17:00)
[2022-05-26] MEDS: MIDODRINE HCL 5 MG TABLET PO SCH (09:48)
[2022-05-26] MEDS ORDERED: SODIUM CHLORIDE 0.9% 250ML 250 ML IV ONE (10:45)
[2022-05-26] MEDS: INSULIN ASPART 70/30 100 UNITS/ML VIAL SC SCH ×3 (11:11→17:00)
[2022-05-26] MEDS ORDERED: EPOETIN ALFA-EPBX 10,000 UNIT/ML VIAL SC SCH (12:45)
[2022-05-26] MEDS ORDERED: EPOETIN ALFA-EPBX 10,000 UNIT/ML VIAL SC ONE ×2 (13:00→17:30)
[2022-05-26] MEDS ORDERED: SODIUM CHLORIDE 0.9% 250ML 250 ML ONE (13:54)
[2022-05-26] MEDS ORDERED: SODIUM CHLORIDE 0.9% 1000ML 1,000 ML ONE (13:54)
[2022-05-26] MEDS ORDERED: DEXTROSE 50% SYRINGE 50 ML IV ONE ×3 (16:24→18:21)
[2022-05-27 04:00] VITALS: BP 97/55
[2022-05-27] MEDS: LACTULOSE SYRUP 20 GM/30 ML UDC PO SCH (05:06)
[2022-05-27] MEDS: Morphine 4mg INJECTION 4 MG/ML INJ IV PRN ×2 (06:22)
[2022-05-27] MEDS: ONDANSETRON HCL 4 MG ORAL DISINTEGRATING TAB PO PRN (06:23)
[2022-05-27] MEDS: MIDODRINE HCL 5 MG TABLET PO SCH (08:38)
[2022-05-27] MEDS: SENNOSIDES 8.6 MG TAB PO SCH (08:38)
[2022-05-27] MEDS: DOCUSATE SODIUM 100 MG CAP PO SCH (08:38)
[2022-05-27] MEDS: SEVELAMER CARBONATE 800 MG TAB PO SCH (08:38)
[2022-05-27] MEDS: INSULIN ASPART 70/30 100 UNITS/ML VIAL SC SCH (08:40)
[2022-05-27 09:02] VITALS: BP 86/46
== END 2022-05-27 10:51 | disposition home or self-care (01) | DRG 432 ==
LOC: ER 11:20 → ERHOLD 13:32 → MED/SURG3 17:28
PROVIDERS: ADMIT Internal Medicine; ATTEND Internal Medicine
PROC: 30243N1 Transfusion of Nonautologous Red Blood Cells into Central Vein, Percutaneous Approach (ICD-10-PCS; 2022-05-23)
PROC: 5A1D70Z Performance of Urinary Filtration, Intermittent, Less than 6 Hours Per Day (ICD-10-PCS; 2022-05-23)
PROC: 0W9G3ZZ Drainage of Peritoneal Cavity, Percutaneous Approach (ICD-10-PCS; principal; 2022-05-25)
DX: K74.60 Unspecified cirrhosis of liver (principal); N18.6 End stage renal disease; D61.818 Other pancytopenia; R18.8 Other ascites; J90 Pleural effusion, not elsewhere classified; I13.2 Hypertensive heart and chronic kidney disease with heart failure and with stage 5 chronic kidney disease, or end stage renal disease; I50.32 Chronic diastolic (congestive) heart failure; I85.10 Secondary esophageal varices without bleeding; B18.2 Chronic viral hepatitis C; E87.5 Hyperkalemia; E11.22 Type 2 diabetes mellitus with diabetic chronic kidney disease; Z99.2 Dependence on renal dialysis; Z79.4 Long term (current) use of insulin; D63.1 Anemia in chronic kidney disease; I48.91 Unspecified atrial fibrillation; Z79.01 Long term (current) use of anticoagulants; Z88.6 Allergy status to analgesic agent; Z87.891 Personal history of nicotine dependence; Z20.822 Contact with and (suspected) exposure to COVID-19
CPT/HCPCS: 36415; 49083; 71045; 74176; 80053; 82140; 82550; 82553; 82948; 83880; 84484; 85025; 85049; 85610; 86706; 86850; 86900; 86920; 87350; 93005; 94799; 99284; C1729; J1815; J2270; J2405; J7030; J7050; J7799; P9016; P9034; Q0162

== ENCOUNTER 2022-06-23 06:02 | Inpatient (IN) | payer MEDICARE, OTHER ==
[~2022-06-23] VITALS: Ht 175.3 cm; Wt 66.0 kg
[2022-06-23] VITALS (41 sets, daily range): BP systolic 58–150; BP diastolic 38–80
[~2022-06-23 06:02] MED LIST changes: +BASAGLAR K100 UNIT/1; +SENNA PLUS TAB1 EACH PO
[2022-06-23] MEDS ORDERED: LACTULOSE SYRUP 20 GM/30 ML UDC PO ONE (06:15)
[2022-06-23 06:34] LABS: BASOPHILS % 0.4 % (0.0-1.0); EOSINOPHILS # (AUTO) 0.1 (0.0-0.4); EOSINOPHILS % 2.9 % (0.0-6.0); HEMATOCRIT 33.8 % (38.2-49.6); HEMOGLOBIN 11.4 g/dL (14.0-18.0); LYMPHOCYTES # (AUTO) 0.4 (1.0-3.2); LYMPHOCYTES % 9.8 % (18.0-39.1); MEAN CORPUSCULAR HEMOGLOBIN 32.2 pg (28-32); MEAN CORPUSCULAR HGB CONC 33.7 g/dL (31-35); MEAN CORPUSCULAR VOLUME 95.5 fL (81-99); MONOCYTES # (AUTO) 0.6 (0.2-0.8); NEUTROPHILS # (AUTO) 3.3 (2.1-6.9); NEUTROPHILS % 73.5 % (38.7-80.0); PLATELET COUNT 63 x10e3/uL (140-360); RED BLOOD COUNT 3.54 x10e6/uL (4.3-5.7); RED CELL DISTRIBUTION WIDTH 24.7 % (11.7-14.4)
[2022-06-23 06:47] LABS: INR 1.22; PROTHROMBIN TIME 16.5 seconds (11.9-14.5)
[2022-06-23 06:53] LABS: SALICYLATE < 5.0 mg/dL (0-30)
[2022-06-23 06:55] LABS: ALBUMIN 2.4 g/dL (3.5-5.0); ALBUMIN/GLOBULIN RATIO 0.4 (0.8-2.0); ANION GAP 19.6 mmol/L (8-16); CALCIUM 8.3 mg/dL (8.4-10.2); CREATININE, SERUM 7.02 mg/dL (0.72-1.25); POTASSIUM 5.6 mmol/L (3.5-5.1)
[2022-06-23] MEDS ORDERED: DEXTROSE 50% SYRINGE 50 ML IV STA (07:46)
[2022-06-23] MEDS ORDERED: ALBUTEROL SULF 0.083% NEB SOLN 3 ML NEB NEB STA (07:46)
[2022-06-23] MEDS ORDERED: SODIUM BICARBONATE 8.4% INJ 50 ML SYR IV STA (07:46)
[2022-06-23 08:00] LABS: PLATELET ESTIMATE ADEQUATE; PLATELET MORPHOLOGY COMMENT NORMAL; RBC MORPHOLOGY COMMENT ABNORMAL
[2022-06-23] MEDS ORDERED: INSULIN REGULAR, HUMAN 100 UNIT/1 ML IV ONE (08:00)
[2022-06-23] MEDS ORDERED: SOD POLYSTYRENE SULFONATE SUSP 15 GM/60 ML BTL PO ONE (08:00)
[2022-06-23 08:01] LABS: ANISOCYTOSIS MODERATE; HYPOCHROMASIA SLIGHT; OVALOCYTES FEW
[2022-06-23] MEDS ORDERED: SODIUM CHLORIDE 0.9% 100 ML ONE (08:29)
[2022-06-23] MEDS ORDERED: CALCIUM GLUC 1 G/50 ML NACL 50 ML IV ONE (08:32)
[2022-06-23 08:49] LABS: ABG HCO3 25 mmol/L (22-26); ABG PCO2 35 mmHg (35-45); ABG PH 7.47 (7.35-7.45); ABG PO2 266 mmHg (80-105)
[2022-06-23 08:50] LABS: ABG TCO2 26
[2022-06-23] MEDS ORDERED: CALCIUM GLUCONATE 10% INJ 13.95 MEQ in SODIUM CHLORIDE 0.9% 100 ML IV ONE (09:00)
[2022-06-23] MEDS ORDERED: LACTULOSE20 GM/30 M PO (10:42)
[2022-06-23] MEDS ORDERED: Vancomycin IV 1 GM in SODIUM CHLORIDE 0.9% 250ML 250 ML IV ONE (14:15)
[2022-06-23] MEDS: PROPOFOL IV EMULSION 10MG/ML 100 ML IV PRN (14:40)
[2022-06-23] MEDS: DEXMEDETOMIDINE 400MCG/NS100ML 100 ML IV PRN (14:45)
[2022-06-23] MEDS ORDERED: SODIUM CHLORIDE 0.9% 1000ML 2,000 ML ONE (14:57)
[2022-06-23 15:19] LABS: ABG HCO3 24 mmol/L (22-26); ABG PCO2 31 mmHg (35-45); ABG PO2 66 mmHg (80-105); ABG TCO2 25
[2022-06-23 15:20] LABS: ABG PCO2 33 mmHg (35-45); ABG PH 7.49 (7.35-7.45); ABG PO2 201 mmHg (80-105)
[2022-06-23 15:21] LABS: ABG HCO3 25 mmol/L (22-26); ABG TCO2 26
[2022-06-23] MEDS ORDERED: ALBUMIN 25% 12.5GM 0.25 GM/ML BTL IV PRN (16:00)
[2022-06-23] MEDS ORDERED: SODIUM CHLORIDE 0.9% 1000ML 2,000 ML IV PRN (16:00)
[2022-06-23] MEDS ORDERED: ETOMIDATE 2 MG/ML 10 ML INJ IV ONE (16:56)
[2022-06-23] MEDS ORDERED: VECURONIUM BROMIDE FOR INJ 20 MG VIAL ONE (16:56)
[2022-06-23] MEDS ORDERED: WATER STERILE 10 ML VIAL ONE (16:56)
[2022-06-23] MEDS: NOREPINEPHRINE 8 MG/D5W 250 ML 250 ML IV SCH (17:05)
[2022-06-23] MEDS: RIFAXIMIN 550 MG TABLET PO SCH (21:20)
[2022-06-23] MEDS: LACTULOSE SYRUP 20 GM/30 ML UDC PO SCH (21:21)
[2022-06-24] VITALS (95 sets, daily range): BP systolic 86–159; BP diastolic 47–74
[2022-06-24] MEDS: LACTULOSE SYRUP 20 GM/30 ML UDC PO SCH ×5 (00:43→23:52)
[2022-06-24] MEDS: PROPOFOL IV EMULSION 10MG/ML 100 ML IV PRN (01:22)
[2022-06-24] MEDS: NOREPINEPHRINE 8 MG/D5W 250 ML 250 ML IV SCH ×2 (04:03→23:52)
[2022-06-24 06:44] LABS: BASOPHILS % 0.1 % (0.0-1.0); EOSINOPHILS % 0.3 % (0.0-6.0); HEMOGLOBIN 10.3 g/dL (14.0-18.0); LYMPHOCYTES # (AUTO) 0.4 (1.0-3.2); LYMPHOCYTES % 3.9 % (18.0-39.1); MEAN CORPUSCULAR HGB CONC 31.2 g/dL (31-35); MEAN CORPUSCULAR VOLUME 96.2 fL (81-99); MONOCYTES # (AUTO) 0.9 (0.2-0.8); MONOCYTES % 8.6 % (4.4-11.3); NEUTROPHILS # (AUTO) 9.4 (2.1-6.9); NEUTROPHILS % 86.7 % (38.7-80.0); PLATELET COUNT 65 x10e3/uL (140-360); RED BLOOD COUNT 3.43 x10e6/uL (4.3-5.7); RED CELL DISTRIBUTION WIDTH 23.7 % (11.7-14.4)
[2022-06-24 07:05] LABS: ALBUMIN 2.6 g/dL (3.5-5.0); ALBUMIN/GLOBULIN RATIO 0.6 (0.8-2.0); ANION GAP 20.8 mmol/L (8-16); CALCIUM 8.2 mg/dL (8.4-10.2); CREATININE, SERUM 5.4 mg/dL (0.72-1.25); POTASSIUM 4.8 mmol/L (3.5-5.1)
[2022-06-24 07:15] LABS: ANISOCYTOSIS MODERATE; PLATELET ESTIMATE MODERATELY DECREASED
[2022-06-24 07:16] LABS: PLATELET MORPHOLOGY COMMENT NORMAL; RBC MORPHOLOGY COMMENT ABNORMAL
[2022-06-24] MEDS ORDERED: DEXTROSE 50% SYRINGE 50 ML IV PRN (08:45)
[2022-06-24] MEDS: RIFAXIMIN 550 MG TABLET PO SCH ×2 (09:28→17:25)
[2022-06-24] MEDS: INSULIN REGULAR, HUMAN 100 UNIT/1 ML SQ SCH ×3 (11:46→20:55)
[2022-06-24] MEDS: DEXMEDETOMIDINE 400MCG/NS100ML 100 ML IV PRN (23:51)
[2022-06-25] VITALS (78 sets, daily range): BP systolic 71–144; BP diastolic 47–86
[2022-06-25] MEDS: LACTULOSE SYRUP 20 GM/30 ML UDC PO SCH ×4 (06:00→23:59)
[2022-06-25 06:35] LABS: EOSINOPHILS % 0.6 % (0.0-6.0); HEMOGLOBIN 8.8 g/dL (14.0-18.0); LYMPHOCYTES # (AUTO) 0.4 (1.0-3.2); MEAN CORPUSCULAR HEMOGLOBIN 29.2 pg (28-32); MEAN CORPUSCULAR HGB CONC 30.3 g/dL (31-35); MEAN CORPUSCULAR VOLUME 96.3 fL (81-99); MONOCYTES # (AUTO) 0.5 (0.2-0.8); MONOCYTES % 6.7 % (4.4-11.3); NEUTROPHILS # (AUTO) 6.2 (2.1-6.9); NEUTROPHILS % 87.4 % (38.7-80.0); RED BLOOD COUNT 3.01 x10e6/uL (4.3-5.7); RED CELL DISTRIBUTION WIDTH 22.6 % (11.7-14.4)
[2022-06-25 06:40] LABS: PLATELET COUNT 42 x10e3/uL (140-360)
[2022-06-25 06:53] LABS: ALBUMIN 2.3 g/dL (3.5-5.0); ALBUMIN/GLOBULIN RATIO 0.5 (0.8-2.0); ANION GAP 19.3 mmol/L (8-16); CREATININE, SERUM 6.71 mg/dL (0.72-1.25); POTASSIUM 4.3 mmol/L (3.5-5.1)
[2022-06-25] MEDS: DEXMEDETOMIDINE 400MCG/NS100ML 100 ML IV PRN ×2 (07:32→13:50)
[2022-06-25 09:01] LABS: LYMPHOCYTES % (MANUAL) 4 % (19-48); MONOCYTES % (MANUAL) 9 % (3.4-9.0); NEUTROPHILS % (MANUAL) 87 % (40-74); PLATELET ESTIMATE MODERATELY DECREASED
[2022-06-25 09:02] LABS: PLATELET MORPHOLOGY COMMENT NORMAL; RBC MORPHOLOGY COMMENT NORMAL
[2022-06-25] MEDS: RIFAXIMIN 550 MG TABLET PO SCH ×2 (09:07→16:23)
[2022-06-25] MEDS: INSULIN REGULAR, HUMAN 100 UNIT/1 ML SQ SCH ×4 (09:10→20:59)
[2022-06-26] VITALS (60 sets, daily range): BP systolic 64–116; BP diastolic 38–75
[2022-06-26] MEDS ORDERED: PROPOFOL IV EMULSION 10MG/ML 100 ML IV SCH (03:00)
[2022-06-26] MEDS: DEXMEDETOMIDINE 400MCG/NS100ML 100 ML IV PRN (03:37)
[2022-06-26] MEDS: LACTULOSE SYRUP 20 GM/30 ML UDC PO SCH ×2 (05:57→12:56)
[2022-06-26 06:14] LABS: BASOPHILS # (AUTO) 0.1 (0.0-0.1); BASOPHILS % 0.6 % (0.0-1.0); EOSINOPHILS # (AUTO) 0.3 (0.0-0.4); HEMATOCRIT 38.1 % (38.2-49.6); HEMOGLOBIN 12.2 g/dL (14.0-18.0); LYMPHOCYTES # (AUTO) 0.9 (1.0-3.2); LYMPHOCYTES % 10.4 % (18.0-39.1); MEAN CORPUSCULAR HEMOGLOBIN 29.9 pg (28-32); MEAN CORPUSCULAR VOLUME 93.4 fL (81-99); MONOCYTES # (AUTO) 0.8 (0.2-0.8); MONOCYTES % 9.5 % (4.4-11.3); NEUTROPHILS # (AUTO) 6.3 (2.1-6.9); NEUTROPHILS % 74.8 % (38.7-80.0); PLATELET COUNT 265 x10e3/uL (140-360); RED BLOOD COUNT 4.08 x10e6/uL (4.3-5.7); RED CELL DISTRIBUTION WIDTH 15.5 % (11.7-14.4)
[2022-06-26 06:41] LABS: ALBUMIN 2.3 g/dL (3.5-5.0); ALBUMIN/GLOBULIN RATIO 0.6 (0.8-2.0); ANION GAP 18.9 mmol/L (8-16); CALCIUM 7.8 mg/dL (8.4-10.2); CREATININE, SERUM 6.44 mg/dL (0.72-1.25)
[2022-06-26 06:55] LABS: POTASSIUM 2.9 mmol/L (3.5-5.1)
[2022-06-26] MEDS: INSULIN REGULAR, HUMAN 100 UNIT/1 ML SQ SCH ×2 (07:30→11:16)
[2022-06-26 08:54] LABS: ABG HCO3 25 mmol/L (22-26); ABG PCO2 35 mmHg (35-45); ABG PH 7.47 (7.35-7.45); ABG PO2 116 mmHg (80-105); ABG TCO2 26
[2022-06-26] MEDS: RIFAXIMIN 550 MG TABLET PO SCH (09:00)
[2022-06-26] MEDS ORDERED: POLYETHYLENE GLYCOL 3350 17 GM PACK NG ONE (10:00)
[2022-06-26] MEDS ORDERED: BELLADONNA ALK/PHENOBARBITAL 5 ML UDC NG ONE (10:00)
[2022-06-26] MEDS ORDERED: HYDROCODONE/APAP 5MG-325MG TAB NG PRN (10:00)
[2022-06-26] MEDS ORDERED: HYDROCODONE BIT/ACETAMINOPHEN 2.5 MG/108MG PER 5 ML SOLUTION NG PRN (10:15)
[2022-06-26] MEDS ORDERED: KCL 20 MEQ PACKET/ ORAL SOLN NG ONE (11:30)
[2022-06-26] MEDS ORDERED: LORAZEPAM INJ 2 MG/ML VIAL IV ONE (14:15)
== END 2022-06-26 14:30 | disposition hospice, inpatient (51) | DRG 871 ==
LOC: ER 06:07 → ERHOLD 08:10 → ICU 11:55
PROVIDERS: ADMIT Internal Medicine; ATTEND Internal Medicine
PROC: 02HV33Z Insertion of Infusion Device into Superior Vena Cava, Percutaneous Approach (ICD-10-PCS; principal; 2022-06-23)
PROC: 5A1945Z Respiratory Ventilation, 24-96 Consecutive Hours (ICD-10-PCS; 2022-06-23)
PROC: B548ZZA Ultrasonography of Superior Vena Cava, Guidance (ICD-10-PCS; 2022-06-23)
PROC: 0BH17EZ Insertion of Endotracheal Airway into Trachea, Via Natural or Artificial Opening (ICD-10-PCS; 2022-06-23)
PROC: 3E043XZ Introduction of Vasopressor into Central Vein, Percutaneous Approach (ICD-10-PCS; 2022-06-23)
PROC: 5A1D70Z Performance of Urinary Filtration, Intermittent, Less than 6 Hours Per Day (ICD-10-PCS; 2022-06-23)
PROC: 3E04329 Introduction of Other Anti-infective into Central Vein, Percutaneous Approach (ICD-10-PCS; 2022-06-23)
DX: A41.9 Sepsis, unspecified organism (principal); J18.9 Pneumonia, unspecified organism; J69.0 Pneumonitis due to inhalation of food and vomit; N18.6 End stage renal disease; J96.00 Acute respiratory failure, unspecified whether with hypoxia or hypercapnia; R57.8 Other shock; K76.6 Portal hypertension; I12.0 Hypertensive chronic kidney disease with stage 5 chronic kidney disease or end stage renal disease; D61.818 Other pancytopenia; K74.60 Unspecified cirrhosis of liver; R65.20 Severe sepsis without septic shock; K76.82 Hepatic encephalopathy; E11.22 Type 2 diabetes mellitus with diabetic chronic kidney disease; Z99.2 Dependence on renal dialysis; I48.91 Unspecified atrial fibrillation; Z95.0 Presence of cardiac pacemaker; Z88.8 Allergy status to other drugs, medicaments and biological substances; E11.65 Type 2 diabetes mellitus with hyperglycemia; K42.9 Umbilical hernia without obstruction or gangrene; E87.5 Hyperkalemia; Z86.19 Personal history of other infectious and parasitic diseases; D64.9 Anemia, unspecified; Z66 Do not resuscitate; L89.142 Pressure ulcer of left lower back, stage 2; L89.132 Pressure ulcer of right lower back, stage 2; L89.152 Pressure ulcer of sacral region, stage 2; S51.812A Laceration without foreign body of left forearm, initial encounter
CPT/HCPCS: 31500; 36415; 36600; 51700; 70450; 71045; 74018; 74176; 80053; 80329; 82140; 82805; 82948; 84484; 85025; 85610; 86706; 87070; 87205; 87340; 93005; 94003; 94799; 96361; 96365; 96366; 99251; 99284; J0456; J0610; J0692; J1817; J2060; J3370; J7030; J7050; J7799